=== PATIENT | male | born 1965 | race Caucasian/White ===

== ENCOUNTER 2016-12-21 11:11 | Inpatient (IN) | payer MEDICARE, MEDICAID ==
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
[2016-12-21 11:46] LABS: % BASOPHILS 1.4 % (0.0-2.0); % LYMPHOCYTES 25.3 % (20.0-50.0); % MONOCYTES 7.5 % (2.0-10.0); % NEUTROPHILS 56.8 % (40.0-80.0); HEMATOCRIT 34.8 % (41.0-60); HEMOGLOBIN 11.6 gm/dL (12-16); MEAN CELL VOLUME 83.9 fl (80-99); MEAN CORPUSCULAR HGB CONC 33.3 pg (28.0-36.0); NEUTROPHILE ABSOLUTE 3.3 Th/cmm (1.8-8.0); PLATELET COUNT 321 Th/cmm (150-400); RED BLOOD COUNT 4.14 Mil/cmm (4.30-5.70); RED CELL DISTRIBUTION WIDTH 13.6 % (11.5-20.0); WHITE BLOOD COUNT 5.8 Th/cmm (4.8-10.8)
[2016-12-21 11:58] LABS: ALKALINE PHOSPHATASE 85 U/L (34-104); ANION GAP 9.5 (7.0-16.0); BILIRUBIN,TOTAL 0.4 mg/dL (0.3-1.0); BUN - UREA NITROGEN 13 mg/dL (7-25); BUN/CREATININE RATIO 18.6; CALCIUM SERUM 9.3 mg/dL (8.6-10.3); CARBON DIOXIDE 24.4 mEq/L (21.0-31.0); CHLORIDE 103 mEq/L (98-107); CHOLESTEROL 153 mg/dL (<200); CREATININE - SERUM 0.7 mg/dL (0.7-1.3); GLUCOSE 240 mg/dL (70-105); POTASSIUM SERUM 3.9 mEq/L (3.5-5.1); SGOT 8 U/L (13-39); SGPT/ALT 5 U/L (7-52); SODIUM SERUM 133 mEq/L (136-145); TRIGLYCERIDES 146 mg/dL (<150)
[2016-12-21 13:16] LABS: URINE BILIRUBIN NEGATIVE (NEGATIVE); URINE BLOOD LARGE (NEGATIVE); URINE GLUCOSE (UA) NEGATIVE (NEGATIVE); URINE KETONE NEGATIVE (NEGATIVE); URINE PROTEIN NEGATIVE (NEGATIVE); URINE UROBILINOGEN 0.2 E.U./dL (0.2 - 1.0)
[2016-12-21 13:17] LABS: URINE COLOR YELLOW
[2016-12-21 13:21] LABS: URINE RBC 50-100 /hpf (0-5)
[2016-12-21 13:22] LABS: URINE BACTERIA MANY /hpf (NONE SEEN); URINE EPITHELIAL CELLS FEW /lpf (FEW); URINE WBC >100 /hpf (0-5)
[2016-12-21 15:16] VITALS: BP 110/65
[2016-12-21] MEDS ORDERED: Magnesium Hydroxide (MOM) 30 mL UDC PO PRN (16:18)
[2016-12-21] MEDS ORDERED: Fleet Enema 135 mL RC PRN (16:18)
[2016-12-21] MEDS ORDERED: Acetaminophen 500 MG TAB PO PRN (16:18)
[2016-12-21] MEDS: INSULIN ASPART SLIDING SCALE 100 UNITS/ML UNIT SUBQ SCH ×2 (18:28→20:43)
[2016-12-21] MEDS: Ferrous Sulfate 325 MG TAB PO SCH (18:30)
--- NOTE | 2016-12-21 20:11 | History & Physical ---
ADMIT DATE: 12/21/2016 CHIEF COMPLAINT: Severe depression. 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 Initial workup significant for urinary tract infection, major depression. The patient admitted to [facility] under Dr. Mar's service. The patient denies any chest pain, shortness of breath, nausea, vomiting, fever or chills. The patient just feels weak. PAST MEDICAL HISTORY: Significant for diabetes mellitus, spinal cord injury, functional quadriplegia, depression. PAST SURGICAL HISTORY: No recent surgery. ALLERGIES: None. MEDICATIONS: Follow admission reconciliation. SOCIAL HISTORY: No smoking, no alcohol, no drugs. FAMILY HISTORY: Noncontributory. REVIEW OF SYSTEMS: RENAL SYSTEM: No history of chronic renal disorder. CARDIOVASCULAR SYSTEM: No coronary artery disease. ENDOCRINE SYSTEM: Diabetes mellitus. GASTROINTESTINAL SYSTEM: No upper or lower gastrointestinal bleed. NEUROLOGICAL: He has history of functional quadriplegia, depression. MUSCULOSKELETAL SYSTEM: He has a contracture of the upper and lower extremities and muscular dystrophy. PHYSICAL EXAMINATION: GENERAL: He is awake, alert, oriented. VITAL SIGNS: Temperature is 98.6, heart rate 83, blood pressure is 126/72. HEENT: Normocephalic. Pupils reactive to light and accommodation. Sclerae clear. NECK: Supple. Negative for lymphadenopathy, JVD or bruit. CHEST: Bilateral normal. No rhonchi or wheezing. HEART: S1, S2 normal. No rhonchi. ABDOMEN: Soft, bowel sounds positive. EXTREMITIES: No edema on exam. SKIN: Intact. NEUROLOGIC: He is awake, alert, oriented. He has weakness of both lower extremities. LABORATORY DATA: White blood cell 5.8, hemoglobin 11.6, hematocrit 34.8, platelets 321. Sodium is 133, potassium 3.9, BUN is 13, creatinine 0.9. Urinalysis, specific gravity ____. ASSESSMENT: 1. Urinary tract infection. 2. Major depression. 3. Diabetes mellitus. 4. Functional quadriplegia. 5. Mild anemia. PLAN: The patient admitted to the hospital under Dr. Mar's service. Medical problems to be addressed during hospitalization UTI, major depression. Medical problems to be addressed after discharge is diabetes mellitus, ____, quadriplegia. The patient is medically stable for activity. Thank you Dr. Mar for asking me to see your patient. JOB# [id number]
[2016-12-22] MEDS: INSULIN ASPART SLIDING SCALE 100 UNITS/ML UNIT SUBQ SCH ×4 (06:44→21:13)
[2016-12-22] MEDS: Ferrous Sulfate 325 MG TAB PO SCH ×2 (08:32→17:07)
--- NOTE | 2016-12-22 14:09 | Internal Medicine Prog Note ---
Internal Medicine Subjective - Subjective Service Date: 12/22/16 Patient seen and examined:: without staff Patient is:: awake, interactive, in bed, talking Per staff patient has:: no adverse event (HE IS TAKING MEDICATION.) Internal Medicine Objective - Results Result Diagrams: 12/21/16 11:35 12/21/16 11:35 Recent Labs: Laboratory Last Values WBC 5.8 Th/cmm (4.8-10.8) 12/21/16 11:35 RBC 4.14 Mil/cmm (4.30-5.70) L 12/21/16 11:35 Hgb 11.6 gm/dL (12-16) L 12/21/16 11:35 Hct 34.8 % (41.0-60) L 12/21/16 11:35 MCV 83.9 fl (80-99) 12/21/16 11:35 MCH 28.0 pg (26.0-30.0) 12/21/16 11:35 MCHC Differential 33.3 pg (28.0-36.0) 12/21/16 11:35 RDW 13.6 % (11.5-20.0) 12/21/16 11:35 Plt Count 321 Th/cmm (150-400) 12/21/16 11:35 MPV 7.0 fl 12/21/16 11:35 Neutrophils % 56.8 % (40.0-80.0) 12/21/16 11:35 Lymphocytes % 25.3 % (20.0-50.0) 12/21/16 11:35 Monocytes % 7.5 % (2.0-10.0) 12/21/16 11:35 Eosinophils % 9.0 % (0.0-5.0) H 12/21/16 11:35 Basophils % 1.4 % (0.0-2.0) 12/21/16 11:35 Sodium 133 mEq/L (136-145) L 12/21/16 11:35 Potassium 3.9 mEq/L (3.5-5.1) 12/21/16 11:35 Chloride 103 mEq/L (98-107) 12/21/16 11:35 Carbon Dioxide 24.4 mEq/L (21.0-31.0) 12/21/16 11:35 Anion Gap 9.5 (7.0-16.0) 12/21/16 11:35 BUN 13 mg/dL (7-25) 12/21/16 11:35 Creatinine 0.7 mg/dL (0.7-1.3) 12/21/16 11:35 Est GFR ( Amer) > 60.0 ml/min (>90) 12/21/16 11:35 Est GFR (Non-Af Amer) > 60.0 ml/min 12/21/16 11:35 BUN/Creatinine Ratio 18.6 12/21/16 11:35 Glucose 240 mg/dL (70-105) H 12/21/16 11:35 POC Glucose 165 MG/DL (70 - 105) H 12/22/16 11:31 Hemoglobin A1c % 7.2 % (4.0-6.0) H 12/21/16 11:25 Calcium 9.3 mg/dL (8.6-10.3) 12/21/16 11:35 Total Bilirubin 0.4 mg/dL (0.3-1.0) 12/21/16 11:35 AST 8 U/L (13-39) L 12/21/16 11:35 ALT 5 U/L (7-52) L 12/21/16 11:35 Alkaline Phosphatase 85 U/L (34-104) 12/21/16 11:35 Total Protein 7.5 gm/dL (6.0-8.3) 12/21/16 11:35 Albumin 3.7 gm/dL (4.2-5.5) L 12/21/16 11:35 Globulin 3.8 gm/dL 12/21/16 11:35 Albumin/Globulin Ratio 1.0 (1.0-1.8) 12/21/16 11:35 Triglycerides 146 mg/dL (<150) 12/21/16 11:35 Cholesterol 153 mg/dL (<200) 12/21/16 11:35 LDL Cholesterol Direct 107 mg/dL (75-193) 12/21/16 11:35 HDL Cholesterol 34 mg/dL (23-92) 12/21/16 11:35 TSH 2.28 uIU/ml (0.34-5.60) 12/21/16 11:35 Urine Source CLEAN C 12/21/16 12:30 Urine Color YELLOW 12/21/16 12:30 Urine Clarity CLOUDY (CLEAR) 12/21/16 12:30 Urine pH 6.0 (4.6 - 8.0) 12/21/16 12:30 Ur Specific [place] <= 1.005 (1.005-1.030) 12/21/16 12:30 Urine Protein NEGATIVE mg/dL (NEGATIVE) 12/21/16 12:30 Urine Glucose (UA) NEGATIVE mg/dL (NEGATIVE) 12/21/16 12:30 Urine Ketones NEGATIVE mg/dL (NEGATIVE) 12/21/16 12:30 Urine Blood LARGE (NEGATIVE) H 12/21/16 12:30 Urine Nitrate POSITIVE (NEGATIVE) H 12/21/16 12:30 Urine Bilirubin NEGATIVE (NEGATIVE) 12/21/16 12:30 Urine Urobilinogen 0.2 E.U./dL (0.2 - 1.0) 12/21/16 12:30 Ur Leukocyte Esterase LARGE (NEGATIVE) H 12/21/16 12:30 Urine RBC 50-100 /hpf (0-5) H 12/21/16 12:30 Urine WBC >100 /hpf (0-5) H 12/21/16 12:30 Ur Epithelial Cells FEW /lpf (FEW) 12/21/16 12:30 Urine Bacteria MANY /hpf (NONE SEEN) 12/21/16 12:30 RPR NONREACTIVE (NONREACTIVE) 12/21/16 11:35 - Physical Exam Vitals and I&O: Vital Signs Temp 98.6 F 12/22/16 06:42 Pulse 81 12/22/16 06:42 Resp 19 12/22/16 06:42 BP 109/67 12/22/16 06:42 Pulse Ox 98 12/22/16 06:42 Intake & Output 12/21/16 12/22/16 12/22/16 18:59 06:59 18:59 Intake Total 120 Balance 120 Intake: Oral 120 Other: # Voids 3 # Bowel Movements 1 Active Medications: Current Medications Acetaminophen (Tylenol) 650 mg PO Q6HR PRN PRN Reason: Pain (Moderate) Stop: 02/19/17 16:17 Acetaminophen (Tylenol Extra Strength) 500 mg PO Q6HR PRN PRN Reason: Pain (Mild) Stop: 02/19/17 16:17 Bisacodyl (Dulcolax 10 Mg Supp) 10 mg RC DAILY PRN PRN Reason: Constipation Stop: 02/19/17 16:17 Bisacodyl (Dulcolax 10 Mg Supp) 10 mg RC HS [facility] Stop: 02/19/17 20:59 Last Admin: 12/21/16 20:43 Dose: 10 mg Ciprofloxacin (Cipro) 250 mg PO BID [facility] Stop: 02/20/17 20:59 Ferrous Sulfate (Iron) 325 mg PO BID [facility] Stop: 02/19/17 16:59 Last Admin: 12/22/16 08:32 Dose: 325 mg Insulin Aspart (Novolog Insulin Sliding Scale) 0 units SUBQ ACHS YIFAN PRN Reason: Protocol Stop: 02/19/17 17:04 Last Admin: 12/22/16 11:49 Dose: 2 units Lorazepam (Ativan) 0.5 mg PO Q6HR PRN; Protocol PRN Reason: Agitation Stop: 02/19/17 20:12 Magnesium Hydroxide (Milk Of Magnesia) 30 ml PO DAILY PRN PRN Reason: Constipation Stop: 02/19/17 16:17 Metformin HCl (Glucophage) 500 mg PO BID [facility] Stop: 02/19/17 16:59 Last Admin: 12/22/16 08:30 Dose: 500 mg Sodium Phosphate (Fleet Enema) 118 ml RC PRN PRN PRN Reason: Constipation Stop: 02/19/17 16:17 Tramadol HCl (Ultram) 50 mg PO Q6H PRN PRN Reason: Pain (Severe) Stop: 02/19/17 16:17 General: alert HEENT: NC/AT, PERRLA, EOMI, anicteric sclerae, throat clear Neck: Supple, No JVD, No thyromegaly, +2 carotid pulse wo bruit, No LAD, + JVD Lungs: CTAB Cardiovascular: RRR, Normal S1, Normal S2, without murmur Abdomen: soft, non-tender, non-distended Extremities: clear Neurological: no change Internal Medicine Assmt/Plan - Assessment Assessment: 1.UTI. 2.DM. 3.ANEMIA. 4.DEPRESSION - Plan Plan: CONTINUE ON CURRENT MEDICATION AND DIET.
[2016-12-22] MEDS ORDERED: Probiotic Screen MC PRN (14:30)
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
[2016-12-23] MEDS: INSULIN ASPART SLIDING SCALE 100 UNITS/ML UNIT SUBQ SCH ×4 (07:02→21:24)
[2016-12-23] MEDS: Lactobacillus Rhamnosus 10 Billion CFU Capsule PO SCH (08:41)
[2016-12-23] MEDS: Ferrous Sulfate 325 MG TAB PO SCH ×2 (08:41→16:16)
--- NOTE | 2016-12-23 11:29 | General Progress Note ---
Subjective - Review of Systems Service Date: 12/23/16 Subjective: resting comfortably in bed no distress Objective - Results Result Diagrams: 12/21/16 11:35 12/21/16 11:35 Recent Labs: Laboratory Last Values WBC 5.8 Th/cmm (4.8-10.8) 12/21/16 11:35 RBC 4.14 Mil/cmm (4.30-5.70) L 12/21/16 11:35 Hgb 11.6 gm/dL (12-16) L 12/21/16 11:35 Hct 34.8 % (41.0-60) L 12/21/16 11:35 MCV 83.9 fl (80-99) 12/21/16 11:35 MCH 28.0 pg (26.0-30.0) 12/21/16 11:35 MCHC Differential 33.3 pg (28.0-36.0) 12/21/16 11:35 RDW 13.6 % (11.5-20.0) 12/21/16 11:35 Plt Count 321 Th/cmm (150-400) 12/21/16 11:35 MPV 7.0 fl 12/21/16 11:35 Neutrophils % 56.8 % (40.0-80.0) 12/21/16 11:35 Lymphocytes % 25.3 % (20.0-50.0) 12/21/16 11:35 Monocytes % 7.5 % (2.0-10.0) 12/21/16 11:35 Eosinophils % 9.0 % (0.0-5.0) H 12/21/16 11:35 Basophils % 1.4 % (0.0-2.0) 12/21/16 11:35 Sodium 133 mEq/L (136-145) L 12/21/16 11:35 Potassium 3.9 mEq/L (3.5-5.1) 12/21/16 11:35 Chloride 103 mEq/L (98-107) 12/21/16 11:35 Carbon Dioxide 24.4 mEq/L (21.0-31.0) 12/21/16 11:35 Anion Gap 9.5 (7.0-16.0) 12/21/16 11:35 BUN 13 mg/dL (7-25) 12/21/16 11:35 Creatinine 0.7 mg/dL (0.7-1.3) 12/21/16 11:35 Est GFR ( Amer) > 60.0 ml/min (>90) 12/21/16 11:35 Est GFR (Non-Af Amer) > 60.0 ml/min 12/21/16 11:35 BUN/Creatinine Ratio 18.6 12/21/16 11:35 Glucose 240 mg/dL (70-105) H 12/21/16 11:35 POC Glucose 191 MG/DL (70 - 105) H 12/23/16 06:47 Hemoglobin A1c % 7.2 % (4.0-6.0) H 12/21/16 11:25 Calcium 9.3 mg/dL (8.6-10.3) 12/21/16 11:35 Total Bilirubin 0.4 mg/dL (0.3-1.0) 12/21/16 11:35 AST 8 U/L (13-39) L 12/21/16 11:35 ALT 5 U/L (7-52) L 12/21/16 11:35 Alkaline Phosphatase 85 U/L (34-104) 12/21/16 11:35 Total Protein 7.5 gm/dL (6.0-8.3) 12/21/16 11:35 Albumin 3.7 gm/dL (4.2-5.5) L 12/21/16 11:35 Globulin 3.8 gm/dL 12/21/16 11:35 Albumin/Globulin Ratio 1.0 (1.0-1.8) 12/21/16 11:35 Triglycerides 146 mg/dL (<150) 12/21/16 11:35 Cholesterol 153 mg/dL (<200) 12/21/16 11:35 LDL Cholesterol Direct 107 mg/dL (75-193) 12/21/16 11:35 HDL Cholesterol 34 mg/dL (23-92) 12/21/16 11:35 TSH 2.28 uIU/ml (0.34-5.60) 12/21/16 11:35 Urine Source CLEAN C 12/21/16 12:30 Urine Color YELLOW 12/21/16 12:30 Urine Clarity CLOUDY (CLEAR) 12/21/16 12:30 Urine pH 6.0 (4.6 - 8.0) 12/21/16 12:30 Ur Specific [place] <= 1.005 (1.005-1.030) 12/21/16 12:30 Urine Protein NEGATIVE mg/dL (NEGATIVE) 12/21/16 12:30 Urine Glucose (UA) NEGATIVE mg/dL (NEGATIVE) 12/21/16 12:30 Urine Ketones NEGATIVE mg/dL (NEGATIVE) 12/21/16 12:30 Urine Blood LARGE (NEGATIVE) H 12/21/16 12:30 Urine Nitrate POSITIVE (NEGATIVE) H 12/21/16 12:30 Urine Bilirubin NEGATIVE (NEGATIVE) 12/21/16 12:30 Urine Urobilinogen 0.2 E.U./dL (0.2 - 1.0) 12/21/16 12:30 Ur Leukocyte Esterase LARGE (NEGATIVE) H 12/21/16 12:30 Urine RBC 50-100 /hpf (0-5) H 12/21/16 12:30 Urine WBC >100 /hpf (0-5) H 12/21/16 12:30 Ur Epithelial Cells FEW /lpf (FEW) 12/21/16 12:30 Urine Bacteria MANY /hpf (NONE SEEN) 12/21/16 12:30 RPR NONREACTIVE (NONREACTIVE) 12/21/16 11:35 - Physical Exam Vitals and I&O: Vital Signs Temp 97.6 F 12/23/16 06:47 Pulse 63 12/23/16 10:32 Resp 19 12/23/16 10:32 BP 108/72 12/23/16 06:47 Pulse Ox 95 12/23/16 06:47 Intake & Output 12/22/16 12/23/16 12/23/16 18:59 06:59 18:59 Intake Total 1000 120 Balance 1000 120 Intake: Oral 1000 120 Other: # Voids 3 3 # Bowel Movements 0 Active Medications: Current Medications Acetaminophen (Tylenol) 650 mg PO Q6HR PRN PRN Reason: Pain (Moderate) Stop: 02/19/17 16:17 Acetaminophen (Tylenol Extra Strength) 500 mg PO Q6HR PRN PRN Reason: Pain (Mild) Stop: 02/19/17 16:17 Bisacodyl (Dulcolax 10 Mg Supp) 10 mg RC HS YIFAN Stop: 02/19/17 20:59 Last Admin: 12/22/16 21:12 Dose: 10 mg Ciprofloxacin (Cipro) 250 mg PO BID [facility] Stop: 02/20/17 20:59 Last Admin: 12/23/16 08:42 Dose: 250 mg Ferrous Sulfate (Iron) 325 mg PO BID [facility] Stop: 02/19/17 16:59 Last Admin: 12/23/16 08:41 Dose: 325 mg Insulin Aspart (Novolog Insulin Sliding Scale) 0 units SUBQ ACHS YIFAN PRN Reason: Protocol Stop: 02/19/17 17:04 Last Admin: 12/23/16 07:02 Dose: 2 units Lactobacillus Rhamnosus (Culturelle) 1 each PO DAILY [facility] Stop: 02/21/17 08:59 Last Admin: 12/23/16 08:41 Dose: 1 each Lorazepam (Ativan) 0.5 mg PO Q6HR PRN; Protocol PRN Reason: Agitation Stop: 02/19/17 20:12 Magnesium Hydroxide (Milk Of Magnesia) 30 ml PO DAILY PRN PRN Reason: Constipation Stop: 02/19/17 16:17 Metformin HCl (Glucophage) 500 mg PO BID [facility] Stop: 02/19/17 16:59 Last Admin: 12/23/16 08:42 Dose: 500 mg Miscellaneous (Probiotic Screen) 1 ea MC PRN PRN PRN Reason: PROTOCOL Stop: 02/20/17 14:29 Quetiapine Fumarate (Seroquel) 25 mg PO HS YIFAN PRN Reason: Protocol Stop: 02/21/17 20:59 Sodium Phosphate (Fleet Enema) 118 ml RC PRN PRN PRN Reason: Constipation Stop: 02/19/17 16:17 Tramadol HCl (Ultram) 50 mg PO Q6H PRN PRN Reason: Pain (Severe) Stop: 02/19/17 16:17 General: Alert, No acute distress HEENT: Atraumatic, PERRLA, EOMI Neck: Supple, JVD Cardiovascular: Regular rate, Normal S1, Normal S2 Lungs: Clear to auscultation Abdomen: Bowel sounds, Soft Psych/Mental Status: Mood NL Assessment/Plan - Assessment Assessment: 1.UTI. 2.DM. 3.ANEMIA. 4.DEPRESSION - Plan Plan: cont current treatment Nutritional Asmnt/Malnutr-PDOC - Dietary Evaluation Malnutrition Findings (Please click <Entered> for more info): Nutritional Asmnt/Malnutrition Start: 12/22/16 16: 48 Text: Status: Complete Freq: Document 12/22/16 16:48 YVONNE (Rec: 12/22/16 17:00 [email or web address] [email or web address]) Nutritional Asmnt/Malnutrition Patient General Information Nutritional Screening Consult Diagnosis Reason for visit: refusal of care, UTI, 5150 Pertinent Medical Hx/Surgical Hx Quadriplegia secondary to spinal cord injury, DM Subjective Information 51 year old male from SNF. RD consult for blood glucose. Trinidadian speaking, little Romanian. Pt was very pelasant. Visited pt during meal time, observed pt sitting upright in bed able to self feed. Teeth/ dentures intact. Limited physical assessment due to meal time, appeared thin, mild wasting only. Pt stated the food is good, no questions/ concerns at this time. Current Diet Order/ Nutrition Support Regular Pertinent Medications Dulcolax, Iron, Novolog, Culturelle, MOM, Glucophage, Fleet Enema Pertinent Labs A1c 7.2, POc glucose 165-290 since adm Nutritional Hx/Data Height 1.63 m Height (Calculated Centimeters) 162.6 Current Weight (lbs) 55.338 kg Weight (Calculated Kilograms) 55.3 Weight (Calculated Grams) 29784.3 [place] Body Weight 130 Weight Status Approriate GI Symptoms [facility] at [facility] [place] [facility], thin liquids Skin Integrity/Comment: Ankur 15. Skin intact. Estimated Nutritional Goals Calories/Kcals/Kg IBW 130lb/59.1kg Kcals Calculated 1478-1773kcal (25-30kcal/kg) Protein Calculated 59g (1g/kg) Fluid: ml 1478-1773ml (1ml/kcal) Nutritional Problem 1. Problem Problem Altered nutrition related laboratory values related to Etiology DM aeb Signs/Symptoms: A1c 7.2, glucose 240 on adm Intervention/Recommendation Comments 1. Recommend [id number] with Boost glucose control QD. 2. Monitor weight. BMI 20.9 with mild wasting noted. Expected Outcomes/Goals Expected Outcomes/Goals 1. PO intake to meet at least 75% of estimated nutritinoal needs.
--- NOTE | 2016-12-23 22:00 | Progress Notes ---
DATE: 12/23/2016 SUBJECTIVE: The patient is seen, chart reviewed, discussed with staff. The patient is currently in the hospital, apparently paranoid, believing that the medicine was being poisoned. He is denying this at this time. He is in fairly good spirits, remains impulsive; however, highly unpredictable. He is amenable to care at this time. He remains pretty isolative, sleeping well. He states he is eating fairly well. He has been fairly compliant. ASSESSMENT: The patient remains symptomatic, impulsive, unpredictable, concerns for paranoia and psychosis. PLAN: Continue to monitor, coordinate care with social work, continue to make appropriate medication adjustments. JOB# [id number]
[2016-12-24] MEDS: INSULIN ASPART SLIDING SCALE 100 UNITS/ML UNIT SUBQ SCH ×4 (07:06→21:40)
[2016-12-24] MEDS: Lactobacillus Rhamnosus 10 Billion CFU Capsule PO SCH (08:33)
[2016-12-24] MEDS: Ferrous Sulfate 325 MG TAB PO SCH ×2 (08:34→16:31)
--- NOTE | 2016-12-24 19:01 | Progress Notes ---
DATE: 12/24/2016 SUBJECTIVE: The patient is seen, chart reviewed, discussed with staff. The patient is currently in the hospital, apparently he was refusing to take his medications and also refusing food at times, making statements that he thought that the staff was poisoning his medicine. The patient was denying this upon admission. He is having some periods of irritability, but in general has been calm, and cooperative. He has been treatment compliant, sleeping fairly well, linear, and engaged, No SI, no HI. I did initiate Seroquel at a low dose to tamper down any paranoia. ASSESSMENT: The patient remains highly impulsive, unpredictable. He has been friendlier and calmer while in the hospital relative to when I have seen him before. PLAN: We will continue to monitor. Given his ongoing symptoms, he is not safe for discharge. We are also trying to work on placement. He cannot take care of himself. JOB# [id number]
--- NOTE | 2016-12-24 19:49 | General Progress Note ---
Subjective - Review of Systems Service Date: 12/24/16 Subjective: resting comfortably in bed no distress Objective - Results Result Diagrams: 12/21/16 11:35 12/21/16 11:35 Recent Labs: Laboratory Last Values WBC 5.8 Th/cmm (4.8-10.8) 12/21/16 11:35 RBC 4.14 Mil/cmm (4.30-5.70) L 12/21/16 11:35 Hgb 11.6 gm/dL (12-16) L 12/21/16 11:35 Hct 34.8 % (41.0-60) L 12/21/16 11:35 MCV 83.9 fl (80-99) 12/21/16 11:35 MCH 28.0 pg (26.0-30.0) 12/21/16 11:35 MCHC Differential 33.3 pg (28.0-36.0) 12/21/16 11:35 RDW 13.6 % (11.5-20.0) 12/21/16 11:35 Plt Count 321 Th/cmm (150-400) 12/21/16 11:35 MPV 7.0 fl 12/21/16 11:35 Neutrophils % 56.8 % (40.0-80.0) 12/21/16 11:35 Lymphocytes % 25.3 % (20.0-50.0) 12/21/16 11:35 Monocytes % 7.5 % (2.0-10.0) 12/21/16 11:35 Eosinophils % 9.0 % (0.0-5.0) H 12/21/16 11:35 Basophils % 1.4 % (0.0-2.0) 12/21/16 11:35 Sodium 133 mEq/L (136-145) L 12/21/16 11:35 Potassium 3.9 mEq/L (3.5-5.1) 12/21/16 11:35 Chloride 103 mEq/L (98-107) 12/21/16 11:35 Carbon Dioxide 24.4 mEq/L (21.0-31.0) 12/21/16 11:35 Anion Gap 9.5 (7.0-16.0) 12/21/16 11:35 BUN 13 mg/dL (7-25) 12/21/16 11:35 Creatinine 0.7 mg/dL (0.7-1.3) 12/21/16 11:35 Est GFR ( Amer) > 60.0 ml/min (>90) 12/21/16 11:35 Est GFR (Non-Af Amer) > 60.0 ml/min 12/21/16 11:35 BUN/Creatinine Ratio 18.6 12/21/16 11:35 Glucose 240 mg/dL (70-105) H 12/21/16 11:35 POC Glucose 212 MG/DL (70 - 105) H 12/24/16 17:02 Hemoglobin A1c % 7.2 % (4.0-6.0) H 12/21/16 11:25 Calcium 9.3 mg/dL (8.6-10.3) 12/21/16 11:35 Total Bilirubin 0.4 mg/dL (0.3-1.0) 12/21/16 11:35 AST 8 U/L (13-39) L 12/21/16 11:35 ALT 5 U/L (7-52) L 12/21/16 11:35 Alkaline Phosphatase 85 U/L (34-104) 12/21/16 11:35 Total Protein 7.5 gm/dL (6.0-8.3) 12/21/16 11:35 Albumin 3.7 gm/dL (4.2-5.5) L 12/21/16 11:35 Globulin 3.8 gm/dL 12/21/16 11:35 Albumin/Globulin Ratio 1.0 (1.0-1.8) 12/21/16 11:35 Triglycerides 146 mg/dL (<150) 12/21/16 11:35 Cholesterol 153 mg/dL (<200) 12/21/16 11:35 LDL Cholesterol Direct 107 mg/dL (75-193) 12/21/16 11:35 HDL Cholesterol 34 mg/dL (23-92) 12/21/16 11:35 TSH 2.28 uIU/ml (0.34-5.60) 12/21/16 11:35 Urine Source CLEAN C 12/21/16 12:30 Urine Color YELLOW 12/21/16 12:30 Urine Clarity CLOUDY (CLEAR) 12/21/16 12:30 Urine pH 6.0 (4.6 - 8.0) 12/21/16 12:30 Ur Specific [place] <= 1.005 (1.005-1.030) 12/21/16 12:30 Urine Protein NEGATIVE mg/dL (NEGATIVE) 12/21/16 12:30 Urine Glucose (UA) NEGATIVE mg/dL (NEGATIVE) 12/21/16 12:30 Urine Ketones NEGATIVE mg/dL (NEGATIVE) 12/21/16 12:30 Urine Blood LARGE (NEGATIVE) H 12/21/16 12:30 Urine Nitrate POSITIVE (NEGATIVE) H 12/21/16 12:30 Urine Bilirubin NEGATIVE (NEGATIVE) 12/21/16 12:30 Urine Urobilinogen 0.2 E.U./dL (0.2 - 1.0) 12/21/16 12:30 Ur Leukocyte Esterase LARGE (NEGATIVE) H 12/21/16 12:30 Urine RBC 50-100 /hpf (0-5) H 12/21/16 12:30 Urine WBC >100 /hpf (0-5) H 12/21/16 12:30 Ur Epithelial Cells FEW /lpf (FEW) 12/21/16 12:30 Urine Bacteria MANY /hpf (NONE SEEN) 12/21/16 12:30 RPR NONREACTIVE (NONREACTIVE) 12/21/16 11:35 - Physical Exam Vitals and I&O: Vital Signs Temp 98 F 12/24/16 15:52 Pulse 97 12/24/16 15:52 Resp 20 12/24/16 15:52 BP 104/53 12/24/16 15:52 Pulse Ox 95 12/24/16 15:52 Intake & Output 12/24/16 12/24/16 12/25/16 06:59 18:59 06:59 Intake Total 680 Balance 680 Intake: Oral 680 Other: # Voids 2 # Bowel Movements 1 Stool Characteristics Formed Active Medications: Current Medications Acetaminophen (Tylenol) 650 mg PO Q6HR PRN PRN Reason: Pain (Moderate) Stop: 02/19/17 16:17 Acetaminophen (Tylenol Extra Strength) 500 mg PO Q6HR PRN PRN Reason: Pain (Mild) Stop: 02/19/17 16:17 Bisacodyl (Dulcolax 10 Mg Supp) 10 mg RC HS YIFAN Stop: 02/19/17 20:59 Last Admin: 12/23/16 21:23 Dose: 10 mg Ciprofloxacin (Cipro) 250 mg PO BID [facility] Stop: 02/20/17 20:59 Last Admin: 12/24/16 16:31 Dose: 250 mg Ferrous Sulfate (Iron) 325 mg PO BID [facility] Stop: 02/19/17 16:59 Last Admin: 12/24/16 16:31 Dose: 325 mg Insulin Aspart (Novolog Insulin Sliding Scale) 0 units SUBQ ACHS YIFAN PRN Reason: Protocol Stop: 02/19/17 17:04 Last Admin: 12/24/16 17:16 Dose: 4 units Lactobacillus Rhamnosus (Culturelle) 1 each PO DAILY YIFAN Stop: 02/21/17 08:59 Last Admin: 12/24/16 08:33 Dose: 1 each Lorazepam (Ativan) 0.5 mg PO Q6HR PRN; Protocol PRN Reason: Agitation Stop: 02/19/17 20:12 Magnesium Hydroxide (Milk Of Magnesia) 30 ml PO DAILY PRN PRN Reason: Constipation Stop: 02/19/17 16:17 Metformin HCl (Glucophage) 500 mg PO BID [facility] Stop: 02/19/17 16:59 Last Admin: 12/24/16 16:32 Dose: 500 mg Miscellaneous (Probiotic Screen) 1 ea MC PRN PRN PRN Reason: PROTOCOL Stop: 02/20/17 14:29 Quetiapine Fumarate (Seroquel) 25 mg PO HS YIFAN PRN Reason: Protocol Stop: 02/21/17 20:59 Last Admin: 12/23/16 21:22 Dose: 25 mg Sodium Phosphate (Fleet Enema) 118 ml RC PRN PRN PRN Reason: Constipation Stop: 02/19/17 16:17 Tramadol HCl (Ultram) 50 mg PO Q6H PRN PRN Reason: Pain (Severe) Stop: 02/19/17 16:17 General: Alert, No acute distress HEENT: Atraumatic, PERRLA, EOMI Neck: Supple, JVD Cardiovascular: Regular rate, Normal S1, Normal S2 Lungs: Clear to auscultation Abdomen: Bowel sounds, Soft Psych/Mental Status: Mood NL Assessment/Plan - Assessment Assessment: 1.UTI. 2.DM. 3.ANEMIA. 4.DEPRESSION - Plan Plan: cont current treatment Nutritional Asmnt/Malnutr-PDOC - Dietary Evaluation Malnutrition Findings (Please click <Entered> for more info): Nutritional Asmnt/Malnutrition Start: 12/22/16 16: 48 Text: Status: Complete Freq: Document 12/22/16 16:48 YVONNE (Rec: 12/22/16 17:00 GSEMMY [email or web address]) Nutritional Asmnt/Malnutrition Patient General Information Nutritional Screening Consult Diagnosis Reason for visit: refusal of care, UTI, 5150 Pertinent Medical Hx/Surgical Hx Quadriplegia secondary to spinal cord injury, DM Subjective Information 51 year old male from SNF. RD consult for blood glucose. [place] speaking, little Latvian. Pt was very pelasant. Visited pt during meal time, observed pt sitting upright in bed able to self feed. Teeth/ dentures intact. Limited physical assessment due to meal time, appeared thin, mild wasting only. Pt stated the food is good, no questions/ concerns at this time. Current Diet Order/ Nutrition Support Regular Pertinent Medications Dulcolax, Iron, Novolog, Culturelle, MOM, Glucophage, Fleet Enema Pertinent Labs A1c 7.2, POc glucose 165-290 since adm Nutritional Hx/Data Height 1.63 m Height (Calculated Centimeters) 162.6 Current Weight (lbs) 55.338 kg Weight (Calculated Kilograms) 55.3 Weight (Calculated Grams) 69164.3 [place] Body Weight 130 Weight Status Approriate GI Symptoms Usual diet at home [place] [facility], thin liquids Skin Integrity/Comment: Ankur 15. Skin intact. Estimated Nutritional Goals Calories/Kcals/Kg IBW 130lb/59.1kg Kcals Calculated 1478-1773kcal (25-30kcal/kg) Protein Calculated 59g (1g/kg) Fluid: ml 1478-1773ml (1ml/kcal) Nutritional Problem 1. Problem Problem Altered nutrition related laboratory values related to Etiology DM aeb Signs/Symptoms: A1c 7.2, glucose 240 on adm Intervention/Recommendation Comments 1. Recommend [id number] with Boost glucose control QD. 2. Monitor weight. BMI 20.9 with mild wasting noted. Expected Outcomes/Goals Expected Outcomes/Goals 1. PO intake to meet at least 75% of estimated nutritinoal needs.
[2016-12-25] MEDS: INSULIN ASPART SLIDING SCALE 100 UNITS/ML UNIT SUBQ SCH ×4 (06:56→21:20)
[2016-12-25] MEDS: Ferrous Sulfate 325 MG TAB PO SCH ×2 (09:39→16:49)
[2016-12-25] MEDS: Lactobacillus Rhamnosus 10 Billion CFU Capsule PO SCH (09:39)
--- NOTE | 2016-12-25 19:37 | Internal Medicine Prog Note ---
Internal Medicine Subjective - Subjective Service Date: 12/25/16 Patient seen and examined:: with staff, without staff Patient is:: awake, interactive, in bed, talking Per staff patient has:: no adverse event (HE IS TAKING MEDICATION.) Internal Medicine Objective - Results Result Diagrams: 12/21/16 11:35 12/21/16 11:35 Recent Labs: Laboratory Last Values WBC 5.8 Th/cmm (4.8-10.8) 12/21/16 11:35 RBC 4.14 Mil/cmm (4.30-5.70) L 12/21/16 11:35 Hgb 11.6 gm/dL (12-16) L 12/21/16 11:35 Hct 34.8 % (41.0-60) L 12/21/16 11:35 MCV 83.9 fl (80-99) 12/21/16 11:35 MCH 28.0 pg (26.0-30.0) 12/21/16 11:35 MCHC Differential 33.3 pg (28.0-36.0) 12/21/16 11:35 RDW 13.6 % (11.5-20.0) 12/21/16 11:35 Plt Count 321 Th/cmm (150-400) 12/21/16 11:35 MPV 7.0 fl 12/21/16 11:35 Neutrophils % 56.8 % (40.0-80.0) 12/21/16 11:35 Lymphocytes % 25.3 % (20.0-50.0) 12/21/16 11:35 Monocytes % 7.5 % (2.0-10.0) 12/21/16 11:35 Eosinophils % 9.0 % (0.0-5.0) H 12/21/16 11:35 Basophils % 1.4 % (0.0-2.0) 12/21/16 11:35 Sodium 133 mEq/L (136-145) L 12/21/16 11:35 Potassium 3.9 mEq/L (3.5-5.1) 12/21/16 11:35 Chloride 103 mEq/L (98-107) 12/21/16 11:35 Carbon Dioxide 24.4 mEq/L (21.0-31.0) 12/21/16 11:35 Anion Gap 9.5 (7.0-16.0) 12/21/16 11:35 BUN 13 mg/dL (7-25) 12/21/16 11:35 Creatinine 0.7 mg/dL (0.7-1.3) 12/21/16 11:35 Est GFR ( Amer) > 60.0 ml/min (>90) 12/21/16 11:35 Est GFR (Non-Af Amer) > 60.0 ml/min 12/21/16 11:35 BUN/Creatinine Ratio 18.6 12/21/16 11:35 Glucose 240 mg/dL (70-105) H 12/21/16 11:35 POC Glucose 185 MG/DL (70 - 105) H 12/25/16 16:41 Hemoglobin A1c % 7.2 % (4.0-6.0) H 12/21/16 11:25 Calcium 9.3 mg/dL (8.6-10.3) 12/21/16 11:35 Total Bilirubin 0.4 mg/dL (0.3-1.0) 12/21/16 11:35 AST 8 U/L (13-39) L 12/21/16 11:35 ALT 5 U/L (7-52) L 12/21/16 11:35 Alkaline Phosphatase 85 U/L (34-104) 12/21/16 11:35 Total Protein 7.5 gm/dL (6.0-8.3) 12/21/16 11:35 Albumin 3.7 gm/dL (4.2-5.5) L 12/21/16 11:35 Globulin 3.8 gm/dL 12/21/16 11:35 Albumin/Globulin Ratio 1.0 (1.0-1.8) 12/21/16 11:35 Triglycerides 146 mg/dL (<150) 12/21/16 11:35 Cholesterol 153 mg/dL (<200) 12/21/16 11:35 LDL Cholesterol Direct 107 mg/dL (75-193) 12/21/16 11:35 HDL Cholesterol 34 mg/dL (23-92) 12/21/16 11:35 TSH 2.28 uIU/ml (0.34-5.60) 12/21/16 11:35 Urine Source CLEAN C 12/21/16 12:30 Urine Color YELLOW 12/21/16 12:30 Urine Clarity CLOUDY (CLEAR) 12/21/16 12:30 Urine pH 6.0 (4.6 - 8.0) 12/21/16 12:30 Ur Specific [place] <= 1.005 (1.005-1.030) 12/21/16 12:30 Urine Protein NEGATIVE mg/dL (NEGATIVE) 12/21/16 12:30 Urine Glucose (UA) NEGATIVE mg/dL (NEGATIVE) 12/21/16 12:30 Urine Ketones NEGATIVE mg/dL (NEGATIVE) 12/21/16 12:30 Urine Blood LARGE (NEGATIVE) H 12/21/16 12:30 Urine Nitrate POSITIVE (NEGATIVE) H 12/21/16 12:30 Urine Bilirubin NEGATIVE (NEGATIVE) 12/21/16 12:30 Urine Urobilinogen 0.2 E.U./dL (0.2 - 1.0) 12/21/16 12:30 Ur Leukocyte Esterase LARGE (NEGATIVE) H 12/21/16 12:30 Urine RBC 50-100 /hpf (0-5) H 12/21/16 12:30 Urine WBC >100 /hpf (0-5) H 12/21/16 12:30 Ur Epithelial Cells FEW /lpf (FEW) 12/21/16 12:30 Urine Bacteria MANY /hpf (NONE SEEN) 12/21/16 12:30 RPR NONREACTIVE (NONREACTIVE) 12/21/16 11:35 - Physical Exam Vitals and I&O: Vital Signs Temp 98.3 F 12/25/16 15:57 Pulse 85 12/25/16 15:57 Resp 20 12/25/16 15:57 BP 101/59 12/25/16 15:57 Pulse Ox 95 12/25/16 15:57 Intake & Output 12/25/16 12/25/16 12/26/16 06:59 18:59 06:59 Intake Total 240 780 Balance 240 780 Intake: Oral 240 780 Other: # Voids 2 3 # Bowel Movements 1 1 Active Medications: Current Medications Acetaminophen (Tylenol) 650 mg PO Q6HR PRN PRN Reason: Pain (Moderate) Stop: 02/19/17 16:17 Acetaminophen (Tylenol Extra Strength) 500 mg PO Q6HR PRN PRN Reason: Pain (Mild) Stop: 02/19/17 16:17 Bisacodyl (Dulcolax 10 Mg Supp) 10 mg RC HS [facility] Stop: 02/19/17 20:59 Last Admin: 12/24/16 21:40 Dose: Not Given Ciprofloxacin (Cipro) 250 mg PO BID [facility] Stop: 02/20/17 20:59 Last Admin: 12/25/16 16:49 Dose: 250 mg Ferrous Sulfate (Iron) 325 mg PO BID YIFAN Stop: 02/19/17 16:59 Last Admin: 12/25/16 16:49 Dose: 325 mg Insulin Aspart (Novolog Insulin Sliding Scale) 0 units SUBQ ACHS YIFAN PRN Reason: Protocol Stop: 02/19/17 17:04 Last Admin: 12/25/16 16:53 Dose: 2 units Lactobacillus Rhamnosus (Culturelle) 1 each PO DAILY [facility] Stop: 02/21/17 08:59 Last Admin: 12/25/16 09:39 Dose: 1 each Lorazepam (Ativan) 0.5 mg PO Q6HR PRN; Protocol PRN Reason: Agitation Stop: 02/19/17 20:12 Magnesium Hydroxide (Milk Of Magnesia) 30 ml PO DAILY PRN PRN Reason: Constipation Stop: 02/19/17 16:17 Metformin HCl (Glucophage) 500 mg PO BID [facility] Stop: 02/19/17 16:59 Last Admin: 12/25/16 16:48 Dose: 500 mg Miscellaneous (Probiotic Screen) 1 ea MC PRN PRN PRN Reason: PROTOCOL Stop: 02/20/17 14:29 Quetiapine Fumarate (Seroquel) 25 mg PO HS [facility] PRN Reason: Protocol Stop: 02/21/17 20:59 Last Admin: 12/24/16 21:36 Dose: 25 mg Sodium Phosphate (Fleet Enema) 118 ml RC PRN PRN PRN Reason: Constipation Stop: 02/19/17 16:17 Tramadol HCl (Ultram) 50 mg PO Q6H PRN PRN Reason: Pain (Severe) Stop: 02/19/17 16:17 General: alert HEENT: NC/AT, PERRLA, EOMI, anicteric sclerae, throat clear Neck: Supple, No JVD, No thyromegaly, +2 carotid pulse wo bruit, No LAD, + JVD Lungs: CTAB Cardiovascular: RRR, Normal S1, Normal S2, without murmur Abdomen: soft, non-tender, non-distended Extremities: clear Neurological: no change Internal Medicine Assmt/Plan - Assessment Assessment: 1.UTI. 2.DM. 3.ANEMIA. 4.DEPRESSION - Plan Plan: CONTINUE ON CURRENT MEDICATION AND DIET. Nutritional Asmnt/Malnutr-PDOC - Dietary Evaluation Malnutrition Findings (Please click <Entered> for more info): Nutritional Asmnt/Malnutrition Start: 12/22/16 16: 48 Text: Status: Complete Freq: Document 12/22/16 16:48 GSUN (Rec: 12/22/16 17:00 GSUN [email or web address]) Nutritional Asmnt/Malnutrition Patient General Information Nutritional Screening Consult Diagnosis Reason for visit: refusal of care, UTI, 5150 Pertinent Medical Hx/Surgical Hx Quadriplegia secondary to spinal cord injury, DM Subjective Information 51 year old male from SNF. RD consult for blood glucose. Citizen Of [place] speaking, little Lebanese. Pt was very pelasant. Visited pt during meal time, observed pt sitting upright in bed able to self feed. Teeth/ dentures intact. Limited physical assessment due to meal time, appeared thin, mild wasting only. Pt stated the food is good, no questions/ concerns at this time. Current Diet Order/ Nutrition Support Regular Pertinent Medications Dulcolax, Iron, Novolog, Culturelle, MOM, Glucophage, Fleet Enema Pertinent Labs A1c 7.2, POc glucose 165-290 since adm Nutritional Hx/Data Height 1.63 m Height (Calculated Centimeters) 162.6 Current Weight (lbs) 55.338 kg Weight (Calculated Kilograms) 55.3 Weight (Calculated Grams) 45674.3 [place] Body Weight 130 Weight Status Approriate GI Symptoms Usual diet at home [place] [facility], thin liquids Skin Integrity/Comment: Ankur 15. Skin intact. Estimated Nutritional Goals Calories/Kcals/Kg IBW 130lb/59.1kg Kcals Calculated 1478-1773kcal (25-30kcal/kg) Protein Calculated 59g (1g/kg) Fluid: ml 1478-1773ml (1ml/kcal) Nutritional Problem 1. Problem Problem Altered nutrition related laboratory values related to Etiology DM aeb Signs/Symptoms: A1c 7.2, glucose 240 on adm Intervention/Recommendation Comments 1. Recommend [id number] with Boost glucose control QD. 2. Monitor weight. BMI 20.9 with mild wasting noted. Expected Outcomes/Goals Expected Outcomes/Goals 1. PO intake to meet at least 75% of estimated nutritinoal needs.
--- NOTE | 2016-12-25 19:47 | Progress Notes ---
DATE: 12/25/2016 SUBJECTIVE: The patient seen, chart reviewed, and discussed with the staff. The patient is calm, cooperative. He continues denying any paranoia. He is taking his medications, eating well, sleeping well. He remains isolative, some irritability noted. Otherwise, he is gravely disabled, unable to care for his basic needs. We are trying to help him with the placement. He is refusing to go back to [facility]. ASSESSMENT AND PLAN: The patient remains symptomatic, gravely disabled, concerns for safety, still irritable, still with some mood lability, concerns for paranoia, but improvement noted. Continue Seroquel. JOB# [id number]
[2016-12-26] MEDS: INSULIN ASPART SLIDING SCALE 100 UNITS/ML UNIT SUBQ SCH ×5 (06:43→20:30)
[2016-12-26] MEDS: Lactobacillus Rhamnosus 10 Billion CFU Capsule PO SCH (10:02)
[2016-12-26] MEDS: Ferrous Sulfate 325 MG TAB PO SCH ×2 (10:02→16:24)
--- NOTE | 2016-12-26 19:29 | Internal Medicine Prog Note ---
Internal Medicine Subjective - Subjective Service Date: 12/26/16 Patient seen and examined:: without staff Patient is:: awake, interactive, in bed, talking Per staff patient has:: no adverse event (HE IS TAKING MEDICATION.) Internal Medicine Objective - Results Result Diagrams: 12/21/16 11:35 12/21/16 11:35 Recent Labs: Laboratory Last Values WBC 5.8 Th/cmm (4.8-10.8) 12/21/16 11:35 RBC 4.14 Mil/cmm (4.30-5.70) L 12/21/16 11:35 Hgb 11.6 gm/dL (12-16) L 12/21/16 11:35 Hct 34.8 % (41.0-60) L 12/21/16 11:35 MCV 83.9 fl (80-99) 12/21/16 11:35 MCH 28.0 pg (26.0-30.0) 12/21/16 11:35 MCHC Differential 33.3 pg (28.0-36.0) 12/21/16 11:35 RDW 13.6 % (11.5-20.0) 12/21/16 11:35 Plt Count 321 Th/cmm (150-400) 12/21/16 11:35 MPV 7.0 fl 12/21/16 11:35 Neutrophils % 56.8 % (40.0-80.0) 12/21/16 11:35 Lymphocytes % 25.3 % (20.0-50.0) 12/21/16 11:35 Monocytes % 7.5 % (2.0-10.0) 12/21/16 11:35 Eosinophils % 9.0 % (0.0-5.0) H 12/21/16 11:35 Basophils % 1.4 % (0.0-2.0) 12/21/16 11:35 Sodium 133 mEq/L (136-145) L 12/21/16 11:35 Potassium 3.9 mEq/L (3.5-5.1) 12/21/16 11:35 Chloride 103 mEq/L (98-107) 12/21/16 11:35 Carbon Dioxide 24.4 mEq/L (21.0-31.0) 12/21/16 11:35 Anion Gap 9.5 (7.0-16.0) 12/21/16 11:35 BUN 13 mg/dL (7-25) 12/21/16 11:35 Creatinine 0.7 mg/dL (0.7-1.3) 12/21/16 11:35 Est GFR ( Amer) > 60.0 ml/min (>90) 12/21/16 11:35 Est GFR (Non-Af Amer) > 60.0 ml/min 12/21/16 11:35 BUN/Creatinine Ratio 18.6 12/21/16 11:35 Glucose 240 mg/dL (70-105) H 12/21/16 11:35 POC Glucose 140 MG/DL (70 - 105) H 12/26/16 16:12 Hemoglobin A1c % 7.2 % (4.0-6.0) H 12/21/16 11:25 Calcium 9.3 mg/dL (8.6-10.3) 12/21/16 11:35 Total Bilirubin 0.4 mg/dL (0.3-1.0) 12/21/16 11:35 AST 8 U/L (13-39) L 12/21/16 11:35 ALT 5 U/L (7-52) L 12/21/16 11:35 Alkaline Phosphatase 85 U/L (34-104) 12/21/16 11:35 Total Protein 7.5 gm/dL (6.0-8.3) 12/21/16 11:35 Albumin 3.7 gm/dL (4.2-5.5) L 12/21/16 11:35 Globulin 3.8 gm/dL 12/21/16 11:35 Albumin/Globulin Ratio 1.0 (1.0-1.8) 12/21/16 11:35 Triglycerides 146 mg/dL (<150) 12/21/16 11:35 Cholesterol 153 mg/dL (<200) 12/21/16 11:35 LDL Cholesterol Direct 107 mg/dL (75-193) 12/21/16 11:35 HDL Cholesterol 34 mg/dL (23-92) 12/21/16 11:35 TSH 2.28 uIU/ml (0.34-5.60) 12/21/16 11:35 Urine Source CLEAN C 12/21/16 12:30 Urine Color YELLOW 12/21/16 12:30 Urine Clarity CLOUDY (CLEAR) 12/21/16 12:30 Urine pH 6.0 (4.6 - 8.0) 12/21/16 12:30 Ur Specific [place] <= 1.005 (1.005-1.030) 12/21/16 12:30 Urine Protein NEGATIVE mg/dL (NEGATIVE) 12/21/16 12:30 Urine Glucose (UA) NEGATIVE mg/dL (NEGATIVE) 12/21/16 12:30 Urine Ketones NEGATIVE mg/dL (NEGATIVE) 12/21/16 12:30 Urine Blood LARGE (NEGATIVE) H 12/21/16 12:30 Urine Nitrate POSITIVE (NEGATIVE) H 12/21/16 12:30 Urine Bilirubin NEGATIVE (NEGATIVE) 12/21/16 12:30 Urine Urobilinogen 0.2 E.U./dL (0.2 - 1.0) 12/21/16 12:30 Ur Leukocyte Esterase LARGE (NEGATIVE) H 12/21/16 12:30 Urine RBC 50-100 /hpf (0-5) H 12/21/16 12:30 Urine WBC >100 /hpf (0-5) H 12/21/16 12:30 Ur Epithelial Cells FEW /lpf (FEW) 12/21/16 12:30 Urine Bacteria MANY /hpf (NONE SEEN) 12/21/16 12:30 RPR NONREACTIVE (NONREACTIVE) 12/21/16 11:35 - Physical Exam Vitals and I&O: Vital Signs Temp 97.7 F 12/26/16 17:29 Pulse 71 12/26/16 17:29 Resp 19 12/26/16 17:29 BP 88/64 12/26/16 17:29 Pulse Ox 99 12/26/16 17:29 Intake & Output 12/26/16 12/26/16 12/27/16 06:59 18:59 06:59 Intake Total 1200 Balance 1200 Intake: Oral 1200 Other: # Voids 3 4 # Bowel Movements 1 Active Medications: Current Medications Acetaminophen (Tylenol) 650 mg PO Q6HR PRN PRN Reason: Pain (Moderate) Stop: 02/19/17 16:17 Acetaminophen (Tylenol Extra Strength) 500 mg PO Q6HR PRN PRN Reason: Pain (Mild) Stop: 02/19/17 16:17 Bisacodyl (Dulcolax 10 Mg Supp) 10 mg RC HS YIFAN Stop: 02/19/17 20:59 Last Admin: 12/25/16 21:07 Dose: 10 mg Ciprofloxacin (Cipro) 250 mg PO BID [facility] Stop: 02/20/17 20:59 Last Admin: 12/26/16 16:23 Dose: 250 mg Ferrous Sulfate (Iron) 325 mg PO BID YIFAN Stop: 02/19/17 16:59 Last Admin: 12/26/16 16:24 Dose: 325 mg Insulin Aspart (Novolog Insulin Sliding Scale) 0 units SUBQ ACHS YIFAN PRN Reason: Protocol Stop: 02/19/17 17:04 Last Admin: 12/26/16 16:23 Dose: Not Given Lactobacillus Rhamnosus (Culturelle) 1 each PO DAILY [facility] Stop: 02/21/17 08:59 Last Admin: 12/26/16 10:02 Dose: 1 each Lorazepam (Ativan) 0.5 mg PO Q6HR PRN; Protocol PRN Reason: Agitation Stop: 02/19/17 20:12 Magnesium Hydroxide (Milk Of Magnesia) 30 ml PO DAILY PRN PRN Reason: Constipation Stop: 02/19/17 16:17 Metformin HCl (Glucophage) 500 mg PO BID [facility] Stop: 02/19/17 16:59 Last Admin: 12/26/16 16:23 Dose: 500 mg Miscellaneous (Probiotic Screen) 1 ea MC PRN PRN PRN Reason: PROTOCOL Stop: 02/20/17 14:29 Sodium Phosphate (Fleet Enema) 118 ml RC PRN PRN PRN Reason: Constipation Stop: 02/19/17 16:17 Tramadol HCl (Ultram) 50 mg PO Q6H PRN PRN Reason: Pain (Severe) Stop: 02/19/17 16:17 General: alert HEENT: NC/AT, PERRLA, EOMI, anicteric sclerae, throat clear Neck: Supple, No JVD, No thyromegaly, +2 carotid pulse wo bruit, No LAD, + JVD Lungs: CTAB Cardiovascular: RRR, Normal S1, Normal S2, without murmur Abdomen: soft, non-tender, non-distended Extremities: clear Neurological: no change Internal Medicine Assmt/Plan - Assessment Assessment: 1.QUADRIPRESIS.. 2.DM. 3.ANEMIA. 4.DEPRESSION - Plan Plan: CONTINUE ON CURRENT MEDICATION AND DIET. Nutritional Asmnt/Malnutr-PDOC - Dietary Evaluation Malnutrition Findings (Please click <Entered> for more info): Nutritional Asmnt/Malnutrition Start: 12/22/16 16: 48 Text: Status: Complete Freq: Document 12/22/16 16:48 YVONNE (Rec: 12/22/16 17:00 YVONNE [email or web address]) Nutritional Asmnt/Malnutrition Patient General Information Nutritional Screening Consult Diagnosis Reason for visit: refusal of care, UTI, 5150 Pertinent Medical Hx/Surgical Hx Quadriplegia secondary to spinal cord injury, DM Subjective Information 51 year old male from SNF. RD consult for blood glucose. [place] speaking, little [place]i. Pt was very pelasant. Visited pt during meal time, observed pt sitting upright in bed able to self feed. Teeth/ dentures intact. Limited physical assessment due to meal time, appeared thin, mild wasting only. Pt stated the food is good, no questions/ concerns at this time. Current Diet Order/ Nutrition Support Regular Pertinent Medications Dulcolax, Iron, Novolog, Culturelle, MOM, Glucophage, Fleet Enema Pertinent Labs A1c 7.2, POc glucose 165-290 since adm Nutritional Hx/Data Height 1.63 m Height (Calculated Centimeters) 162.6 Current Weight (lbs) 55.338 kg Weight (Calculated Kilograms) 55.3 Weight (Calculated Grams) 06573.3 [place] Body Weight 130 Weight Status Approriate GI Symptoms Usual diet at home [place] [facility] texture, thin liquids Skin Integrity/Comment: Ankur 15. Skin intact. Estimated Nutritional Goals Calories/Kcals/Kg IBW 130lb/59.1kg Kcals Calculated 1478-1773kcal (25-30kcal/kg) Protein Calculated 59g (1g/kg) Fluid: ml 1478-1773ml (1ml/kcal) Nutritional Problem 1. Problem Problem Altered nutrition related laboratory values related to Etiology DM aeb Signs/Symptoms: A1c 7.2, glucose 240 on adm Intervention/Recommendation Comments 1. Recommend [id number] with Boost glucose control QD. 2. Monitor weight. BMI 20.9 with mild wasting noted. Expected Outcomes/Goals Expected Outcomes/Goals 1. PO intake to meet at least 75% of estimated nutritinoal needs.
--- NOTE | 2016-12-26 20:27 | Progress Notes ---
DATE: 12/26/2016 SUBJECTIVE: The patient seen, chart reviewed, discussed with staff. The patient remains in better spirits. States he feels "okay." Denying any overt paranoia. He has been taking his medications, but does not like the Seroquel, states it makes him feel too tired. Sleeping fairly well, eating fairly well, getting along fairly well with staff and peers, currently gravely disabled, unable to care for his basic needs. ASSESSMENT: The patient is still symptomatic, somewhat depressed, anxious, concerns for paranoia, but actively denying. PLAN: We will DC Seroquel. We will continue to monitor. We will try to coordinate care with social work regarding safe discharge plan and good psychiatric followup. JOB# [id number]
[2016-12-27] MEDS: INSULIN ASPART SLIDING SCALE 100 UNITS/ML UNIT SUBQ SCH ×4 (07:02→21:17)
[2016-12-27] MEDS: Lactobacillus Rhamnosus 10 Billion CFU Capsule PO SCH (08:51)
[2016-12-27] MEDS: Ferrous Sulfate 325 MG TAB PO SCH ×2 (08:53→16:55)
--- NOTE | 2016-12-27 20:24 | Internal Medicine Prog Note ---
Internal Medicine Subjective - Subjective Service Date: 12/27/16 Patient seen and examined:: with staff Patient is:: awake, interactive, in bed, talking Per staff patient has:: no adverse event (HE IS TAKING MEDICATION.) Internal Medicine Objective - Results Result Diagrams: 12/21/16 11:35 12/21/16 11:35 Recent Labs: Laboratory Last Values WBC 5.8 Th/cmm (4.8-10.8) 12/21/16 11:35 RBC 4.14 Mil/cmm (4.30-5.70) L 12/21/16 11:35 Hgb 11.6 gm/dL (12-16) L 12/21/16 11:35 Hct 34.8 % (41.0-60) L 12/21/16 11:35 MCV 83.9 fl (80-99) 12/21/16 11:35 MCH 28.0 pg (26.0-30.0) 12/21/16 11:35 MCHC Differential 33.3 pg (28.0-36.0) 12/21/16 11:35 RDW 13.6 % (11.5-20.0) 12/21/16 11:35 Plt Count 321 Th/cmm (150-400) 12/21/16 11:35 MPV 7.0 fl 12/21/16 11:35 Neutrophils % 56.8 % (40.0-80.0) 12/21/16 11:35 Lymphocytes % 25.3 % (20.0-50.0) 12/21/16 11:35 Monocytes % 7.5 % (2.0-10.0) 12/21/16 11:35 Eosinophils % 9.0 % (0.0-5.0) H 12/21/16 11:35 Basophils % 1.4 % (0.0-2.0) 12/21/16 11:35 Sodium 133 mEq/L (136-145) L 12/21/16 11:35 Potassium 3.9 mEq/L (3.5-5.1) 12/21/16 11:35 Chloride 103 mEq/L (98-107) 12/21/16 11:35 Carbon Dioxide 24.4 mEq/L (21.0-31.0) 12/21/16 11:35 Anion Gap 9.5 (7.0-16.0) 12/21/16 11:35 BUN 13 mg/dL (7-25) 12/21/16 11:35 Creatinine 0.7 mg/dL (0.7-1.3) 12/21/16 11:35 Est GFR ( Amer) > 60.0 ml/min (>90) 12/21/16 11:35 Est GFR (Non-Af Amer) > 60.0 ml/min 12/21/16 11:35 BUN/Creatinine Ratio 18.6 12/21/16 11:35 Glucose 240 mg/dL (70-105) H 12/21/16 11:35 POC Glucose 148 MG/DL (70 - 105) H 12/27/16 15:59 Hemoglobin A1c % 7.2 % (4.0-6.0) H 12/21/16 11:25 Calcium 9.3 mg/dL (8.6-10.3) 12/21/16 11:35 Total Bilirubin 0.4 mg/dL (0.3-1.0) 12/21/16 11:35 AST 8 U/L (13-39) L 12/21/16 11:35 ALT 5 U/L (7-52) L 12/21/16 11:35 Alkaline Phosphatase 85 U/L (34-104) 12/21/16 11:35 Total Protein 7.5 gm/dL (6.0-8.3) 12/21/16 11:35 Albumin 3.7 gm/dL (4.2-5.5) L 12/21/16 11:35 Globulin 3.8 gm/dL 12/21/16 11:35 Albumin/Globulin Ratio 1.0 (1.0-1.8) 12/21/16 11:35 Triglycerides 146 mg/dL (<150) 12/21/16 11:35 Cholesterol 153 mg/dL (<200) 12/21/16 11:35 LDL Cholesterol Direct 107 mg/dL (75-193) 12/21/16 11:35 HDL Cholesterol 34 mg/dL (23-92) 12/21/16 11:35 TSH 2.28 uIU/ml (0.34-5.60) 12/21/16 11:35 Urine Source CLEAN C 12/21/16 12:30 Urine Color YELLOW 12/21/16 12:30 Urine Clarity CLOUDY (CLEAR) 12/21/16 12:30 Urine pH 6.0 (4.6 - 8.0) 12/21/16 12:30 Ur Specific [place] <= 1.005 (1.005-1.030) 12/21/16 12:30 Urine Protein NEGATIVE mg/dL (NEGATIVE) 12/21/16 12:30 Urine Glucose (UA) NEGATIVE mg/dL (NEGATIVE) 12/21/16 12:30 Urine Ketones NEGATIVE mg/dL (NEGATIVE) 12/21/16 12:30 Urine Blood LARGE (NEGATIVE) H 12/21/16 12:30 Urine Nitrate POSITIVE (NEGATIVE) H 12/21/16 12:30 Urine Bilirubin NEGATIVE (NEGATIVE) 12/21/16 12:30 Urine Urobilinogen 0.2 E.U./dL (0.2 - 1.0) 12/21/16 12:30 Ur Leukocyte Esterase LARGE (NEGATIVE) H 12/21/16 12:30 Urine RBC 50-100 /hpf (0-5) H 12/21/16 12:30 Urine WBC >100 /hpf (0-5) H 12/21/16 12:30 Ur Epithelial Cells FEW /lpf (FEW) 12/21/16 12:30 Urine Bacteria MANY /hpf (NONE SEEN) 12/21/16 12:30 RPR NONREACTIVE (NONREACTIVE) 12/21/16 11:35 - Physical Exam Vitals and I&O: Vital Signs Temp 97.3 F 12/27/16 20:00 Pulse 70 12/27/16 20:00 Resp 18 12/27/16 20:00 BP 116/80 12/27/16 20:00 Pulse Ox 99 12/27/16 20:00 Intake & Output 12/27/16 12/27/16 12/28/16 06:59 18:59 06:59 Intake Total 80 1200 Balance 80 1200 Weight (lbs) 54.25 kg Intake: Oral 80 1200 Other: # Voids 2 4 # Bowel Movements 0 0 Active Medications: Current Medications Acetaminophen (Tylenol) 650 mg PO Q6HR PRN PRN Reason: Pain (Moderate) Stop: 02/19/17 16:17 Acetaminophen (Tylenol Extra Strength) 500 mg PO Q6HR PRN PRN Reason: Pain (Mild) Stop: 02/19/17 16:17 Bisacodyl (Dulcolax 10 Mg Supp) 10 mg RC HS [facility] Stop: 02/19/17 20:59 Last Admin: 12/26/16 20:29 Dose: 10 mg Ciprofloxacin (Cipro) 250 mg PO BID [facility] Stop: 02/20/17 20:59 Last Admin: 12/27/16 16:54 Dose: 250 mg Ferrous Sulfate (Iron) 325 mg PO BID [facility] Stop: 02/19/17 16:59 Last Admin: 12/27/16 16:55 Dose: 325 mg Insulin Aspart (Novolog Insulin Sliding Scale) 0 units SUBQ ACHS YIFAN PRN Reason: Protocol Stop: 02/19/17 17:04 Last Admin: 12/27/16 16:56 Dose: Not Given Lactobacillus Rhamnosus (Culturelle) 1 each PO DAILY [facility] Stop: 02/21/17 08:59 Last Admin: 12/27/16 08:51 Dose: 1 each Lorazepam (Ativan) 0.5 mg PO Q6HR PRN; Protocol PRN Reason: Agitation Stop: 02/19/17 20:12 Magnesium Hydroxide (Milk Of Magnesia) 30 ml PO DAILY PRN PRN Reason: Constipation Stop: 02/19/17 16:17 Metformin HCl (Glucophage) 500 mg PO BID [facility] Stop: 02/19/17 16:59 Last Admin: 12/27/16 16:53 Dose: 500 mg Miscellaneous (Probiotic Screen) 1 ea MC PRN PRN PRN Reason: PROTOCOL Stop: 02/20/17 14:29 Sodium Phosphate (Fleet Enema) 118 ml RC PRN PRN PRN Reason: Constipation Stop: 02/19/17 16:17 Tramadol HCl (Ultram) 50 mg PO Q6H PRN PRN Reason: Pain (Severe) Stop: 02/19/17 16:17 General: alert HEENT: NC/AT, PERRLA, EOMI, anicteric sclerae, throat clear Neck: Supple, No JVD, No thyromegaly, +2 carotid pulse wo bruit, No LAD, + JVD Lungs: CTAB Cardiovascular: RRR, Normal S1, Normal S2, without murmur Abdomen: soft, non-tender, non-distended Extremities: clear Neurological: no change Internal Medicine Assmt/Plan - Assessment Assessment: 1.QUADRIPRESIS.. 2.DM. 3.ANEMIA. 4.DEPRESSION - Plan Plan: CONTINUE ON CURRENT MEDICATION AND DIET. Nutritional Asmnt/Malnutr-PDOC - Dietary Evaluation Malnutrition Findings (Please click <Entered> for more info): Nutritional Asmnt/Malnutrition Start: 12/22/16 16: 48 Text: Status: Complete Freq: Document 12/22/16 16:48 YVONNE (Rec: 12/22/16 17:00 GSEMMY [email or web address]) Nutritional Asmnt/Malnutrition Patient General Information Nutritional Screening Consult Diagnosis Reason for visit: refusal of care, UTI, 5150 Pertinent Medical Hx/Surgical Hx Quadriplegia secondary to spinal cord injury, DM Subjective Information 51 year old male from SNF. RD consult for blood glucose. Maltese speaking, little Northern Irish. Pt was very pelasant. Visited pt during meal time, observed pt sitting upright in bed able to self feed. Teeth/ dentures intact. Limited physical assessment due to meal time, appeared thin, mild wasting only. Pt stated the food is good, no questions/ concerns at this time. Current Diet Order/ Nutrition Support Regular Pertinent Medications Dulcolax, Iron, Novolog, Culturelle, MOM, Glucophage, Fleet Enema Pertinent Labs A1c 7.2, POc glucose 165-290 since adm Nutritional Hx/Data Height 1.63 m Height (Calculated Centimeters) 162.6 Current Weight (lbs) 55.338 kg Weight (Calculated Kilograms) 55.3 Weight (Calculated Grams) 79435.3 [place] Body Weight 130 Weight Status Approriate GI Symptoms Usual diet at home [place] [facility], thin liquids Skin Integrity/Comment: Ankur 15. Skin intact. Estimated Nutritional Goals Calories/Kcals/Kg IBW 130lb/59.1kg Kcals Calculated 1478-1773kcal (25-30kcal/kg) Protein Calculated 59g (1g/kg) Fluid: ml 1478-1773ml (1ml/kcal) Nutritional Problem 1. Problem Problem Altered nutrition related laboratory values related to Etiology DM aeb Signs/Symptoms: A1c 7.2, glucose 240 on adm Intervention/Recommendation Comments 1. Recommend CONA03iw with Boost glucose control QD. 2. Monitor weight. BMI 20.9 with mild wasting noted. Expected Outcomes/Goals Expected Outcomes/Goals 1. PO intake to meet at least 75% of estimated nutritinoal needs.
--- NOTE | 2016-12-27 22:27 | Progress Notes ---
DATE: 12/27/2016 SUBJECTIVE: The patient seen, chart reviewed, and discussed with the staff. The patient's symptoms seem to be improving. No overt paranoia, calm, friendly, cooperative. The patient is oriented and friendly. Does not want to take the Seroquel, says he is sleeping well, eating well. The patient is noting that he is happy with the care in the hospital and is agreeable to placement. Medications were noted, no side effects, discussed with staff, no events. ASSESSMENT: The patient seems to be improving. No overt paranoia noted, linear and engaged. PLAN: Continue to monitor. He is currently gravely disabled. We are trying to help him with the placement. JOB# [id number]
[2016-12-28] MEDS: INSULIN ASPART SLIDING SCALE 100 UNITS/ML UNIT SUBQ SCH ×4 (06:41→21:00)
[2016-12-28] MEDS: Ferrous Sulfate 325 MG TAB PO SCH ×2 (08:19→16:28)
[2016-12-28] MEDS: Lactobacillus Rhamnosus 10 Billion CFU Capsule PO SCH (08:20)
--- NOTE | 2016-12-28 16:50 | Internal Medicine Prog Note ---
Internal Medicine Subjective - Subjective Service Date: 12/28/16 Patient seen and examined:: with staff Patient is:: awake, interactive, in bed, talking Per staff patient has:: no adverse event (HE IS TAKING MEDICATION.) Internal Medicine Objective - Results Result Diagrams: 12/21/16 11:35 12/21/16 11:35 Recent Labs: Laboratory Last Values WBC 5.8 Th/cmm (4.8-10.8) 12/21/16 11:35 RBC 4.14 Mil/cmm (4.30-5.70) L 12/21/16 11:35 Hgb 11.6 gm/dL (12-16) L 12/21/16 11:35 Hct 34.8 % (41.0-60) L 12/21/16 11:35 MCV 83.9 fl (80-99) 12/21/16 11:35 MCH 28.0 pg (26.0-30.0) 12/21/16 11:35 MCHC Differential 33.3 pg (28.0-36.0) 12/21/16 11:35 RDW 13.6 % (11.5-20.0) 12/21/16 11:35 Plt Count 321 Th/cmm (150-400) 12/21/16 11:35 MPV 7.0 fl 12/21/16 11:35 Neutrophils % 56.8 % (40.0-80.0) 12/21/16 11:35 Lymphocytes % 25.3 % (20.0-50.0) 12/21/16 11:35 Monocytes % 7.5 % (2.0-10.0) 12/21/16 11:35 Eosinophils % 9.0 % (0.0-5.0) H 12/21/16 11:35 Basophils % 1.4 % (0.0-2.0) 12/21/16 11:35 Sodium 133 mEq/L (136-145) L 12/21/16 11:35 Potassium 3.9 mEq/L (3.5-5.1) 12/21/16 11:35 Chloride 103 mEq/L (98-107) 12/21/16 11:35 Carbon Dioxide 24.4 mEq/L (21.0-31.0) 12/21/16 11:35 Anion Gap 9.5 (7.0-16.0) 12/21/16 11:35 BUN 13 mg/dL (7-25) 12/21/16 11:35 Creatinine 0.7 mg/dL (0.7-1.3) 12/21/16 11:35 Est GFR ( Amer) > 60.0 ml/min (>90) 12/21/16 11:35 Est GFR (Non-Af Amer) > 60.0 ml/min 12/21/16 11:35 BUN/Creatinine Ratio 18.6 12/21/16 11:35 Glucose 240 mg/dL (70-105) H 12/21/16 11:35 POC Glucose 183 MG/DL (70 - 105) H 12/28/16 11:17 Hemoglobin A1c % 7.2 % (4.0-6.0) H 12/21/16 11:25 Calcium 9.3 mg/dL (8.6-10.3) 12/21/16 11:35 Total Bilirubin 0.4 mg/dL (0.3-1.0) 12/21/16 11:35 AST 8 U/L (13-39) L 12/21/16 11:35 ALT 5 U/L (7-52) L 12/21/16 11:35 Alkaline Phosphatase 85 U/L (34-104) 12/21/16 11:35 Total Protein 7.5 gm/dL (6.0-8.3) 12/21/16 11:35 Albumin 3.7 gm/dL (4.2-5.5) L 12/21/16 11:35 Globulin 3.8 gm/dL 12/21/16 11:35 Albumin/Globulin Ratio 1.0 (1.0-1.8) 12/21/16 11:35 Triglycerides 146 mg/dL (<150) 12/21/16 11:35 Cholesterol 153 mg/dL (<200) 12/21/16 11:35 LDL Cholesterol Direct 107 mg/dL (75-193) 12/21/16 11:35 HDL Cholesterol 34 mg/dL (23-92) 12/21/16 11:35 TSH 2.28 uIU/ml (0.34-5.60) 12/21/16 11:35 Urine Source CLEAN C 12/21/16 12:30 Urine Color YELLOW 12/21/16 12:30 Urine Clarity CLOUDY (CLEAR) 12/21/16 12:30 Urine pH 6.0 (4.6 - 8.0) 12/21/16 12:30 Ur Specific [place] <= 1.005 (1.005-1.030) 12/21/16 12:30 Urine Protein NEGATIVE mg/dL (NEGATIVE) 12/21/16 12:30 Urine Glucose (UA) NEGATIVE mg/dL (NEGATIVE) 12/21/16 12:30 Urine Ketones NEGATIVE mg/dL (NEGATIVE) 12/21/16 12:30 Urine Blood LARGE (NEGATIVE) H 12/21/16 12:30 Urine Nitrate POSITIVE (NEGATIVE) H 12/21/16 12:30 Urine Bilirubin NEGATIVE (NEGATIVE) 12/21/16 12:30 Urine Urobilinogen 0.2 E.U./dL (0.2 - 1.0) 12/21/16 12:30 Ur Leukocyte Esterase LARGE (NEGATIVE) H 12/21/16 12:30 Urine RBC 50-100 /hpf (0-5) H 12/21/16 12:30 Urine WBC >100 /hpf (0-5) H 12/21/16 12:30 Ur Epithelial Cells FEW /lpf (FEW) 12/21/16 12:30 Urine Bacteria MANY /hpf (NONE SEEN) 12/21/16 12:30 RPR NONREACTIVE (NONREACTIVE) 12/21/16 11:35 - Physical Exam Vitals and I&O: Vital Signs Temp 97.7 F 12/28/16 06:36 Pulse 67 12/28/16 08:00 Resp 20 12/28/16 08:00 BP 109/65 12/28/16 06:36 Pulse Ox 99 12/28/16 06:36 Intake & Output 12/27/16 12/28/16 12/28/16 18:59 06:59 18:59 Intake Total 1200 120 Balance 1200 120 Weight (lbs) 54.25 kg Intake: Oral 1200 120 Other: # Voids 4 3 # Bowel Movements 0 Active Medications: Current Medications Acetaminophen (Tylenol) 650 mg PO Q6HR PRN PRN Reason: Pain (Moderate) Stop: 02/19/17 16:17 Acetaminophen (Tylenol Extra Strength) 500 mg PO Q6HR PRN PRN Reason: Pain (Mild) Stop: 02/19/17 16:17 Bisacodyl (Dulcolax 10 Mg Supp) 10 mg RC HS [facility] Stop: 02/19/17 20:59 Last Admin: 12/27/16 21:17 Dose: 10 mg Ciprofloxacin (Cipro) 250 mg PO BID [facility] Stop: 02/20/17 20:59 Last Admin: 12/28/16 16:27 Dose: 250 mg Ferrous Sulfate (Iron) 325 mg PO BID [facility] Stop: 02/19/17 16:59 Last Admin: 12/28/16 16:28 Dose: 325 mg Insulin Aspart (Novolog Insulin Sliding Scale) 0 units SUBQ ACHS YIFAN PRN Reason: Protocol Stop: 02/19/17 17:04 Last Admin: 12/28/16 16:28 Dose: 4 units Lactobacillus Rhamnosus (Culturelle) 1 each PO DAILY [facility] Stop: 02/21/17 08:59 Last Admin: 12/28/16 08:20 Dose: 1 each Lorazepam (Ativan) 0.5 mg PO Q6HR PRN; Protocol PRN Reason: Agitation Stop: 02/19/17 20:12 Magnesium Hydroxide (Milk Of Magnesia) 30 ml PO DAILY PRN PRN Reason: Constipation Stop: 02/19/17 16:17 Metformin HCl (Glucophage) 500 mg PO BID [facility] Stop: 02/19/17 16:59 Last Admin: 12/28/16 16:27 Dose: 500 mg Miscellaneous (Probiotic Screen) 1 ea MC PRN PRN PRN Reason: PROTOCOL Stop: 02/20/17 14:29 Sodium Phosphate (Fleet Enema) 118 ml RC PRN PRN PRN Reason: Constipation Stop: 02/19/17 16:17 Tramadol HCl (Ultram) 50 mg PO Q6H PRN PRN Reason: Pain (Severe) Stop: 02/19/17 16:17 General: alert HEENT: NC/AT, PERRLA, EOMI, anicteric sclerae, throat clear Neck: Supple, No JVD, No thyromegaly, +2 carotid pulse wo bruit, No LAD, + JVD Lungs: CTAB Cardiovascular: RRR, Normal S1, Normal S2, without murmur Abdomen: soft, non-tender, non-distended Extremities: clear Neurological: no change Internal Medicine Assmt/Plan - Assessment Assessment: 1.QUADRIPRESIS.. 2.DM. 3.ANEMIA. 4.DEPRESSION - Plan Plan: CONTINUE ON CURRENT MEDICATION AND DIET.HE AGREE TO GO TO [facility]. Nutritional Asmnt/Malnutr-PDOC - Dietary Evaluation Malnutrition Findings (Please click <Entered> for more info): Nutritional Asmnt/Malnutrition Start: 12/22/16 16: 48 Text: Status: Complete Freq: Document 12/22/16 16:48 GSUN (Rec: 12/22/16 17:00 GSUN [email or web address]) Nutritional Asmnt/Malnutrition Patient General Information Nutritional Screening Consult Diagnosis Reason for visit: refusal of care, UTI, 5150 Pertinent Medical Hx/Surgical Hx Quadriplegia secondary to spinal cord injury, DM Subjective Information 51 year old male from SNF. RD consult for blood glucose. Algerian speaking, little German. Pt was very pelasant. Visited pt during meal time, observed pt sitting upright in bed able to self feed. Teeth/ dentures intact. Limited physical assessment due to meal time, appeared thin, mild wasting only. Pt stated the food is good, no questions/ concerns at this time. Current Diet Order/ Nutrition Support Regular Pertinent Medications Dulcolax, Iron, Novolog, Culturelle, MOM, Glucophage, Fleet Enema Pertinent Labs A1c 7.2, POc glucose 165-290 since adm Nutritional Hx/Data Height 1.63 m Height (Calculated Centimeters) 162.6 Current Weight (lbs) 55.338 kg Weight (Calculated Kilograms) 55.3 Weight (Calculated Grams) 75651.3 [place] Body Weight 130 Weight Status Approriate GI Symptoms Usual diet at home [place] [facility] texture, thin liquids Skin Integrity/Comment: Ankur 15. Skin intact. Estimated Nutritional Goals Calories/Kcals/Kg IBW 130lb/59.1kg Kcals Calculated 1478-1773kcal (25-30kcal/kg) Protein Calculated 59g (1g/kg) Fluid: ml 1478-1773ml (1ml/kcal) Nutritional Problem 1. Problem Problem Altered nutrition related laboratory values related to Etiology DM aeb Signs/Symptoms: A1c 7.2, glucose 240 on adm Intervention/Recommendation Comments 1. Recommend [id number] with Boost glucose control QD. 2. Monitor weight. BMI 20.9 with mild wasting noted. Expected Outcomes/Goals Expected Outcomes/Goals 1. PO intake to meet at least 75% of estimated nutritinoal needs.
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
[2016-12-29] MEDS: INSULIN ASPART SLIDING SCALE 100 UNITS/ML UNIT SUBQ SCH ×4 (06:34→20:50)
[2016-12-29] MEDS: Ferrous Sulfate 325 MG TAB PO SCH ×2 (08:45→16:51)
[2016-12-29] MEDS: Lactobacillus Rhamnosus 10 Billion CFU Capsule PO SCH (08:45)
--- NOTE | 2016-12-29 21:25 | Internal Medicine Prog Note ---
Internal Medicine Subjective - Subjective Service Date: 12/29/16 Patient seen and examined:: without staff Patient is:: awake, interactive, in bed, talking Per staff patient has:: no adverse event (HE IS TAKING MEDICATION.) Internal Medicine Objective - Results Result Diagrams: 12/21/16 11:35 12/21/16 11:35 Recent Labs: Laboratory Last Values WBC 5.8 Th/cmm (4.8-10.8) 12/21/16 11:35 RBC 4.14 Mil/cmm (4.30-5.70) L 12/21/16 11:35 Hgb 11.6 gm/dL (12-16) L 12/21/16 11:35 Hct 34.8 % (41.0-60) L 12/21/16 11:35 MCV 83.9 fl (80-99) 12/21/16 11:35 MCH 28.0 pg (26.0-30.0) 12/21/16 11:35 MCHC Differential 33.3 pg (28.0-36.0) 12/21/16 11:35 RDW 13.6 % (11.5-20.0) 12/21/16 11:35 Plt Count 321 Th/cmm (150-400) 12/21/16 11:35 MPV 7.0 fl 12/21/16 11:35 Neutrophils % 56.8 % (40.0-80.0) 12/21/16 11:35 Lymphocytes % 25.3 % (20.0-50.0) 12/21/16 11:35 Monocytes % 7.5 % (2.0-10.0) 12/21/16 11:35 Eosinophils % 9.0 % (0.0-5.0) H 12/21/16 11:35 Basophils % 1.4 % (0.0-2.0) 12/21/16 11:35 Sodium 133 mEq/L (136-145) L 12/21/16 11:35 Potassium 3.9 mEq/L (3.5-5.1) 12/21/16 11:35 Chloride 103 mEq/L (98-107) 12/21/16 11:35 Carbon Dioxide 24.4 mEq/L (21.0-31.0) 12/21/16 11:35 Anion Gap 9.5 (7.0-16.0) 12/21/16 11:35 BUN 13 mg/dL (7-25) 12/21/16 11:35 Creatinine 0.7 mg/dL (0.7-1.3) 12/21/16 11:35 Est GFR ( Amer) > 60.0 ml/min (>90) 12/21/16 11:35 Est GFR (Non-Af Amer) > 60.0 ml/min 12/21/16 11:35 BUN/Creatinine Ratio 18.6 12/21/16 11:35 Glucose 240 mg/dL (70-105) H 12/21/16 11:35 POC Glucose 220 MG/DL (70 - 105) H 12/29/16 20:30 Hemoglobin A1c % 7.2 % (4.0-6.0) H 12/21/16 11:25 Calcium 9.3 mg/dL (8.6-10.3) 12/21/16 11:35 Total Bilirubin 0.4 mg/dL (0.3-1.0) 12/21/16 11:35 AST 8 U/L (13-39) L 12/21/16 11:35 ALT 5 U/L (7-52) L 12/21/16 11:35 Alkaline Phosphatase 85 U/L (34-104) 12/21/16 11:35 Total Protein 7.5 gm/dL (6.0-8.3) 12/21/16 11:35 Albumin 3.7 gm/dL (4.2-5.5) L 12/21/16 11:35 Globulin 3.8 gm/dL 12/21/16 11:35 Albumin/Globulin Ratio 1.0 (1.0-1.8) 12/21/16 11:35 Triglycerides 146 mg/dL (<150) 12/21/16 11:35 Cholesterol 153 mg/dL (<200) 12/21/16 11:35 LDL Cholesterol Direct 107 mg/dL (75-193) 12/21/16 11:35 HDL Cholesterol 34 mg/dL (23-92) 12/21/16 11:35 TSH 2.28 uIU/ml (0.34-5.60) 12/21/16 11:35 Urine Source CLEAN C 12/21/16 12:30 Urine Color YELLOW 12/21/16 12:30 Urine Clarity CLOUDY (CLEAR) 12/21/16 12:30 Urine pH 6.0 (4.6 - 8.0) 12/21/16 12:30 Ur Specific [place] <= 1.005 (1.005-1.030) 12/21/16 12:30 Urine Protein NEGATIVE mg/dL (NEGATIVE) 12/21/16 12:30 Urine Glucose (UA) NEGATIVE mg/dL (NEGATIVE) 12/21/16 12:30 Urine Ketones NEGATIVE mg/dL (NEGATIVE) 12/21/16 12:30 Urine Blood LARGE (NEGATIVE) H 12/21/16 12:30 Urine Nitrate POSITIVE (NEGATIVE) H 12/21/16 12:30 Urine Bilirubin NEGATIVE (NEGATIVE) 12/21/16 12:30 Urine Urobilinogen 0.2 E.U./dL (0.2 - 1.0) 12/21/16 12:30 Ur Leukocyte Esterase LARGE (NEGATIVE) H 12/21/16 12:30 Urine RBC 50-100 /hpf (0-5) H 12/21/16 12:30 Urine WBC >100 /hpf (0-5) H 12/21/16 12:30 Ur Epithelial Cells FEW /lpf (FEW) 12/21/16 12:30 Urine Bacteria MANY /hpf (NONE SEEN) 12/21/16 12:30 RPR NONREACTIVE (NONREACTIVE) 12/21/16 11:35 - Physical Exam Vitals and I&O: Vital Signs Temp 99.0 F 12/29/16 20:00 Pulse 80 12/29/16 20:00 Resp 20 12/29/16 20:00 BP 87/55 12/29/16 20:00 Pulse Ox 98 12/29/16 20:00 Intake & Output 12/29/16 12/29/16 12/30/16 06:59 18:59 06:59 Intake Total 120 Balance 120 Intake: Oral 120 Other: # Voids 3 Active Medications: Current Medications Acetaminophen (Tylenol) 650 mg PO Q6HR PRN PRN Reason: Pain (Moderate) Stop: 02/19/17 16:17 Acetaminophen (Tylenol Extra Strength) 500 mg PO Q6HR PRN PRN Reason: Pain (Mild) Stop: 02/19/17 16:17 Bisacodyl (Dulcolax 10 Mg Supp) 10 mg RC HS YIFAN Stop: 02/19/17 20:59 Last Admin: 12/29/16 21:25 Dose: 10 mg Ciprofloxacin (Cipro) 250 mg PO BID YIFAN Stop: 02/20/17 20:59 Last Admin: 12/29/16 16:50 Dose: 250 mg Ferrous Sulfate (Iron) 325 mg PO BID YIFAN Stop: 02/19/17 16:59 Last Admin: 12/29/16 16:51 Dose: 325 mg Insulin Aspart (Novolog Insulin Sliding Scale) 0 units SUBQ ACHS YIFAN PRN Reason: Protocol Stop: 02/19/17 17:04 Last Admin: 12/29/16 20:50 Dose: 4 units Lactobacillus Rhamnosus (Culturelle) 1 each PO DAILY YIFAN Stop: 02/21/17 08:59 Last Admin: 12/29/16 08:45 Dose: 1 each Magnesium Hydroxide (Milk Of Magnesia) 30 ml PO DAILY PRN PRN Reason: Constipation Stop: 02/19/17 16:17 Metformin HCl (Glucophage) 500 mg PO BID [facility] Stop: 02/19/17 16:59 Last Admin: 12/29/16 16:51 Dose: 500 mg Miscellaneous (Probiotic Screen) 1 ea PRN PRN PRN Reason: PROTOCOL Stop: 02/20/17 14:29 Sodium Phosphate (Fleet Enema) 118 ml RC PRN PRN PRN Reason: Constipation Stop: 02/19/17 16:17 Tramadol HCl (Ultram) 50 mg PO Q6H PRN PRN Reason: Pain (Severe) Stop: 02/19/17 16:17 General: alert HEENT: NC/AT, PERRLA, EOMI, anicteric sclerae, throat clear Neck: Supple, No JVD, No thyromegaly, +2 carotid pulse wo bruit, No LAD, + JVD Lungs: CTAB Cardiovascular: RRR, Normal S1, Normal S2, without murmur Abdomen: soft, non-tender, non-distended Extremities: clear Neurological: no change Internal Medicine Assmt/Plan - Assessment Assessment: 1.QUADRIPRESIS.. 2.DM. 3.ANEMIA. 4.DEPRESSION - Plan Plan: CONTINUE ON CURRENT MEDICATION AND DIET.HE AGREE TO GO TO [facility]. Nutritional Asmnt/Malnutr-PDOC - Dietary Evaluation Malnutrition Findings (Please click <Entered> for more info): Nutritional Asmnt/Malnutrition Start: 12/22/16 16: 48 Text: Status: Complete Freq: Document 12/22/16 16:48 YVONNE (Rec: 12/22/16 17:00 GSEMMY [email or web address]) Nutritional Asmnt/Malnutrition Patient General Information Nutritional Screening Consult Diagnosis Reason for visit: refusal of care, UTI, 5150 Pertinent Medical Hx/Surgical Hx Quadriplegia secondary to spinal cord injury, DM Subjective Information 51 year old male from SNF. RD consult for blood glucose. [place] Verdean speaking, little Amharic. Pt was very pelasant. Visited pt during meal time, observed pt sitting upright in bed able to self feed. Teeth/ dentures intact. Limited physical assessment due to meal time, appeared thin, mild wasting only. Pt stated the food is good, no questions/ concerns at this time. Current Diet Order/ Nutrition Support Regular Pertinent Medications Dulcolax, Iron, Novolog, Culturelle, MOM, Glucophage, Fleet Enema Pertinent Labs A1c 7.2, POc glucose 165-290 since adm Nutritional Hx/Data Height 1.63 m Height (Calculated Centimeters) 162.6 Current Weight (lbs) 55.338 kg Weight (Calculated Kilograms) 55.3 Weight (Calculated Grams) 20943.3 [place] Body Weight 130 Weight Status Approriate GI Symptoms Usual diet at home [place] [facility] regular texture, thin liquids Skin Integrity/Comment: Ankur 15. Skin intact. Estimated Nutritional Goals Calories/Kcals/Kg IBW 130lb/59.1kg Kcals Calculated 1478-1773kcal (25-30kcal/kg) Protein Calculated 59g (1g/kg) Fluid: ml 1478-1773ml (1ml/kcal) Nutritional Problem 1. Problem Problem Altered nutrition related laboratory values related to Etiology DM aeb Signs/Symptoms: A1c 7.2, glucose 240 on adm Intervention/Recommendation Comments 1. Recommend [id number] with Boost glucose control QD. 2. Monitor weight. BMI 20.9 with mild wasting noted. Expected Outcomes/Goals Expected Outcomes/Goals 1. PO intake to meet at least 75% of estimated nutritinoal needs.
--- NOTE | 2016-12-29 21:37 | Progress Notes ---
DATE: 12/29/2016 SUBJECTIVE: The patient seen, chart reviewed, discussed with staff. The patient noting improved mood, linear and engaged apparently there were some issues of him going to __facility__. He apparently did not want to go yesterday , so we had to hold his discharge. He cannot take care of herself. The patient is apparently agreeable to go to the [facility]. central supply worker spoke with him. When I spoke with him, he was someone ambivalent. I did explain to him that it is difficult to find a place that are able to care for his needs. He seemed to accept this. Sleeping well, eating well, linear and engaged, accepting of treatment. No overt paranoia. ASSESSMENT: Fair attention ADLs. Fair eye contact. Speech within normal limits. Mood "okay." Affect constricted. Thought processes were linear and engaged, no SI, no HI, no overt psychotic symptoms. Insight and judgment fair. PLAN: [facility] has accepted that the patient per the social services. The patient was amenable to going there. We will discharge him to [facility] today. JOB# [id number]
[2016-12-30] MEDS: INSULIN ASPART SLIDING SCALE 100 UNITS/ML UNIT SUBQ SCH ×4 (06:42→21:15)
[2016-12-30] MEDS: Lactobacillus Rhamnosus 10 Billion CFU Capsule PO SCH (09:45)
[2016-12-30] MEDS: Ferrous Sulfate 325 MG TAB PO SCH ×2 (09:45→17:39)
--- NOTE | 2016-12-30 14:40 | Internal Medicine Prog Note ---
Internal Medicine Subjective - Subjective Service Date: 12/30/16 Patient seen and examined:: with staff (HE FEELS BETTER,NO COMPLAINT.) Patient is:: awake, interactive, in bed, talking Per staff patient has:: no adverse event (HE IS TAKING MEDICATION.) Internal Medicine Objective - Results Result Diagrams: 12/21/16 11:35 12/21/16 11:35 Recent Labs: Laboratory Last Values WBC 5.8 Th/cmm (4.8-10.8) 12/21/16 11:35 RBC 4.14 Mil/cmm (4.30-5.70) L 12/21/16 11:35 Hgb 11.6 gm/dL (12-16) L 12/21/16 11:35 Hct 34.8 % (41.0-60) L 12/21/16 11:35 MCV 83.9 fl (80-99) 12/21/16 11:35 MCH 28.0 pg (26.0-30.0) 12/21/16 11:35 MCHC Differential 33.3 pg (28.0-36.0) 12/21/16 11:35 RDW 13.6 % (11.5-20.0) 12/21/16 11:35 Plt Count 321 Th/cmm (150-400) 12/21/16 11:35 MPV 7.0 fl 12/21/16 11:35 Neutrophils % 56.8 % (40.0-80.0) 12/21/16 11:35 Lymphocytes % 25.3 % (20.0-50.0) 12/21/16 11:35 Monocytes % 7.5 % (2.0-10.0) 12/21/16 11:35 Eosinophils % 9.0 % (0.0-5.0) H 12/21/16 11:35 Basophils % 1.4 % (0.0-2.0) 12/21/16 11:35 Sodium 133 mEq/L (136-145) L 12/21/16 11:35 Potassium 3.9 mEq/L (3.5-5.1) 12/21/16 11:35 Chloride 103 mEq/L (98-107) 12/21/16 11:35 Carbon Dioxide 24.4 mEq/L (21.0-31.0) 12/21/16 11:35 Anion Gap 9.5 (7.0-16.0) 12/21/16 11:35 BUN 13 mg/dL (7-25) 12/21/16 11:35 Creatinine 0.7 mg/dL (0.7-1.3) 12/21/16 11:35 Est GFR ( Amer) > 60.0 ml/min (>90) 12/21/16 11:35 Est GFR (Non-Af Amer) > 60.0 ml/min 12/21/16 11:35 BUN/Creatinine Ratio 18.6 12/21/16 11:35 Glucose 240 mg/dL (70-105) H 12/21/16 11:35 POC Glucose 140 MG/DL (70 - 105) H 12/30/16 12:06 Hemoglobin A1c % 7.2 % (4.0-6.0) H 12/21/16 11:25 Calcium 9.3 mg/dL (8.6-10.3) 12/21/16 11:35 Total Bilirubin 0.4 mg/dL (0.3-1.0) 12/21/16 11:35 AST 8 U/L (13-39) L 12/21/16 11:35 ALT 5 U/L (7-52) L 12/21/16 11:35 Alkaline Phosphatase 85 U/L (34-104) 12/21/16 11:35 Total Protein 7.5 gm/dL (6.0-8.3) 12/21/16 11:35 Albumin 3.7 gm/dL (4.2-5.5) L 12/21/16 11:35 Globulin 3.8 gm/dL 12/21/16 11:35 Albumin/Globulin Ratio 1.0 (1.0-1.8) 12/21/16 11:35 Triglycerides 146 mg/dL (<150) 12/21/16 11:35 Cholesterol 153 mg/dL (<200) 12/21/16 11:35 LDL Cholesterol Direct 107 mg/dL (75-193) 12/21/16 11:35 HDL Cholesterol 34 mg/dL (23-92) 12/21/16 11:35 TSH 2.28 uIU/ml (0.34-5.60) 12/21/16 11:35 Urine Source CLEAN C 12/21/16 12:30 Urine Color YELLOW 12/21/16 12:30 Urine Clarity CLOUDY (CLEAR) 12/21/16 12:30 Urine pH 6.0 (4.6 - 8.0) 12/21/16 12:30 Ur Specific [place] <= 1.005 (1.005-1.030) 12/21/16 12:30 Urine Protein NEGATIVE mg/dL (NEGATIVE) 12/21/16 12:30 Urine Glucose (UA) NEGATIVE mg/dL (NEGATIVE) 12/21/16 12:30 Urine Ketones NEGATIVE mg/dL (NEGATIVE) 12/21/16 12:30 Urine Blood LARGE (NEGATIVE) H 12/21/16 12:30 Urine Nitrate POSITIVE (NEGATIVE) H 12/21/16 12:30 Urine Bilirubin NEGATIVE (NEGATIVE) 12/21/16 12:30 Urine Urobilinogen 0.2 E.U./dL (0.2 - 1.0) 12/21/16 12:30 Ur Leukocyte Esterase LARGE (NEGATIVE) H 12/21/16 12:30 Urine RBC 50-100 /hpf (0-5) H 12/21/16 12:30 Urine WBC >100 /hpf (0-5) H 12/21/16 12:30 Ur Epithelial Cells FEW /lpf (FEW) 12/21/16 12:30 Urine Bacteria MANY /hpf (NONE SEEN) 12/21/16 12:30 RPR NONREACTIVE (NONREACTIVE) 12/21/16 11:35 - Physical Exam Vitals and I&O: Vital Signs Temp 97.4 F 12/30/16 07:04 Pulse 69 12/30/16 07:04 Resp 19 12/30/16 07:04 BP 99/62 12/30/16 07:04 Pulse Ox 98 12/30/16 07:04 Active Medications: Current Medications Acetaminophen (Tylenol) 650 mg PO Q6HR PRN PRN Reason: Pain (Moderate) Stop: 02/19/17 16:17 Acetaminophen (Tylenol Extra Strength) 500 mg PO Q6HR PRN PRN Reason: Pain (Mild) Stop: 02/19/17 16:17 Bisacodyl (Dulcolax 10 Mg Supp) 10 mg RC HS YIAFN Stop: 02/19/17 20:59 Last Admin: 12/29/16 21:25 Dose: 10 mg Ferrous Sulfate (Iron) 325 mg PO BID YIFAN Stop: 02/19/17 16:59 Last Admin: 12/30/16 09:45 Dose: 325 mg Insulin Aspart (Novolog Insulin Sliding Scale) 0 units SUBQ ACHS YIFAN PRN Reason: Protocol Stop: 02/19/17 17:04 Last Admin: 12/30/16 12:17 Dose: Not Given Lactobacillus Rhamnosus (Culturelle) 1 each PO DAILY YIFAN Stop: 02/21/17 08:59 Last Admin: 12/30/16 09:45 Dose: 1 each Magnesium Hydroxide (Milk Of Magnesia) 30 ml PO DAILY PRN PRN Reason: Constipation Stop: 02/19/17 16:17 Metformin HCl (Glucophage) 500 mg PO BID [facility] Stop: 02/19/17 16:59 Last Admin: 12/30/16 09:45 Dose: 500 mg Miscellaneous (Probiotic Screen) 1 ea MC PRN PRN PRN Reason: PROTOCOL Stop: 02/20/17 14:29 Sodium Phosphate (Fleet Enema) 118 ml RC PRN PRN PRN Reason: Constipation Stop: 02/19/17 16:17 Tramadol HCl (Ultram) 50 mg PO Q6H PRN PRN Reason: Pain (Severe) Stop: 02/19/17 16:17 General: alert HEENT: NC/AT, PERRLA, EOMI, anicteric sclerae, throat clear Neck: Supple, No JVD, No thyromegaly, +2 carotid pulse wo bruit, No LAD, + JVD Lungs: CTAB Cardiovascular: RRR, Normal S1, Normal S2, without murmur Abdomen: soft, non-tender, non-distended Extremities: clear Neurological: no change Internal Medicine Assmt/Plan - Assessment Assessment: 1.QUADRIPRESIS.. 2.DM. 3.ANEMIA. 4.DEPRESSION - Plan Plan: CONTINUE ON CURRENT MEDICATION AND DIET.HE AGREE TO GO TO [facility]. Nutritional Asmnt/Malnutr-PDOC - Dietary Evaluation Malnutrition Findings (Please click <Entered> for more info): Nutritional Asmnt/Malnutrition Start: 12/22/16 16: 48 Text: Status: Complete Freq: Document 12/22/16 16:48 GSUN (Rec: 12/22/16 17:00 GSEMMY [email or web address]) Nutritional Asmnt/Malnutrition Patient General Information Nutritional Screening Consult Diagnosis Reason for visit: refusal of care, UTI, 5150 Pertinent Medical Hx/Surgical Hx Quadriplegia secondary to spinal cord injury, DM Subjective Information 51 year old male from SNF. RD consult for blood glucose. Syriac speaking, little Uzbek. Pt was very pelasant. Visited pt during meal time, observed pt sitting upright in bed able to self feed. Teeth/ dentures intact. Limited physical assessment due to meal time, appeared thin, mild wasting only. Pt stated the food is good, no questions/ concerns at this time. Current Diet Order/ Nutrition Support Regular Pertinent Medications Dulcolax, Iron, Novolog, Culturelle, MOM, Glucophage, Fleet Enema Pertinent Labs A1c 7.2, POc glucose 165-290 since adm Nutritional Hx/Data Height 1.63 m Height (Calculated Centimeters) 162.6 Current Weight (lbs) 55.338 kg Weight (Calculated Kilograms) 55.3 Weight (Calculated Grams) 95793.3 [place] Body Weight 130 Weight Status Approriate GI Symptoms Usual diet at home [place] [facility]: [facility] regular texture, thin liquids Skin Integrity/Comment: Ankur 15. Skin intact. Estimated Nutritional Goals Calories/Kcals/Kg IBW 130lb/59.1kg Kcals Calculated 1478-1773kcal (25-30kcal/kg) Protein Calculated 59g (1g/kg) Fluid: ml 1478-1773ml (1ml/kcal) Nutritional Problem 1. Problem Problem Altered nutrition related laboratory values related to Etiology DM aeb Signs/Symptoms: A1c 7.2, glucose 240 on adm Intervention/Recommendation Comments 1. Recommend [id number] with Boost glucose control QD. 2. Monitor weight. BMI 20.9 with mild wasting noted. Expected Outcomes/Goals Expected Outcomes/Goals 1. PO intake to meet at least 75% of estimated nutritinoal needs.
--- NOTE | 2016-12-31 05:33 | Progress Notes ---
DATE: 12/30/[address] Mar. Case was discussed with staff of the patient, reviewed records. This is a 51-year-old male who was admitted on 12/21/2016 because of feeling paranoid, erratic behavior ____ staff is trying to harm him. The patient was on hold. The patient was verbally aggressive, combative towards the staff, hypersexual, refusing care. Unable to care for himself or make safe plan for self-care. The patient seems to have shown some progress. His mood is improved, more engaged. He was supposed to have been discharged, but this was upheld. The patient has been compliant with the medication with no side effects, no sedation, no nausea, no extrapyramidal symptoms. We will continue to work with the patient in group therapy, milieu therapy, adjust the medication as needed. JOB# [id number]
[2016-12-31] MEDS: INSULIN ASPART SLIDING SCALE 100 UNITS/ML UNIT SUBQ SCH ×4 (06:54→20:44)
[2016-12-31] MEDS: Lactobacillus Rhamnosus 10 Billion CFU Capsule PO SCH (08:55)
[2016-12-31] MEDS: Ferrous Sulfate 325 MG TAB PO SCH ×2 (08:55→17:13)
--- NOTE | 2016-12-31 20:40 | Internal Medicine Prog Note ---
Internal Medicine Subjective - Subjective Service Date: 12/31/16 Patient seen and examined:: with staff (he feels well.) Patient is:: awake, interactive, in bed, talking Per staff patient has:: no adverse event (HE IS TAKING MEDICATION.) Internal Medicine Objective - Results Result Diagrams: 12/21/16 11:35 12/21/16 11:35 Recent Labs: Laboratory Last Values WBC 5.8 Th/cmm (4.8-10.8) 12/21/16 11:35 RBC 4.14 Mil/cmm (4.30-5.70) L 12/21/16 11:35 Hgb 11.6 gm/dL (12-16) L 12/21/16 11:35 Hct 34.8 % (41.0-60) L 12/21/16 11:35 MCV 83.9 fl (80-99) 12/21/16 11:35 MCH 28.0 pg (26.0-30.0) 12/21/16 11:35 MCHC Differential 33.3 pg (28.0-36.0) 12/21/16 11:35 RDW 13.6 % (11.5-20.0) 12/21/16 11:35 Plt Count 321 Th/cmm (150-400) 12/21/16 11:35 MPV 7.0 fl 12/21/16 11:35 Neutrophils % 56.8 % (40.0-80.0) 12/21/16 11:35 Lymphocytes % 25.3 % (20.0-50.0) 12/21/16 11:35 Monocytes % 7.5 % (2.0-10.0) 12/21/16 11:35 Eosinophils % 9.0 % (0.0-5.0) H 12/21/16 11:35 Basophils % 1.4 % (0.0-2.0) 12/21/16 11:35 Sodium 133 mEq/L (136-145) L 12/21/16 11:35 Potassium 3.9 mEq/L (3.5-5.1) 12/21/16 11:35 Chloride 103 mEq/L (98-107) 12/21/16 11:35 Carbon Dioxide 24.4 mEq/L (21.0-31.0) 12/21/16 11:35 Anion Gap 9.5 (7.0-16.0) 12/21/16 11:35 BUN 13 mg/dL (7-25) 12/21/16 11:35 Creatinine 0.7 mg/dL (0.7-1.3) 12/21/16 11:35 Est GFR ( Amer) > 60.0 ml/min (>90) 12/21/16 11:35 Est GFR (Non-Af Amer) > 60.0 ml/min 12/21/16 11:35 BUN/Creatinine Ratio 18.6 12/21/16 11:35 Glucose 240 mg/dL (70-105) H 12/21/16 11:35 POC Glucose 147 MG/DL (70 - 105) H 12/31/16 20:08 Hemoglobin A1c % 7.2 % (4.0-6.0) H 12/21/16 11:25 Calcium 9.3 mg/dL (8.6-10.3) 12/21/16 11:35 Total Bilirubin 0.4 mg/dL (0.3-1.0) 12/21/16 11:35 AST 8 U/L (13-39) L 12/21/16 11:35 ALT 5 U/L (7-52) L 12/21/16 11:35 Alkaline Phosphatase 85 U/L (34-104) 12/21/16 11:35 Total Protein 7.5 gm/dL (6.0-8.3) 12/21/16 11:35 Albumin 3.7 gm/dL (4.2-5.5) L 12/21/16 11:35 Globulin 3.8 gm/dL 12/21/16 11:35 Albumin/Globulin Ratio 1.0 (1.0-1.8) 12/21/16 11:35 Triglycerides 146 mg/dL (<150) 12/21/16 11:35 Cholesterol 153 mg/dL (<200) 12/21/16 11:35 LDL Cholesterol Direct 107 mg/dL (75-193) 12/21/16 11:35 HDL Cholesterol 34 mg/dL (23-92) 12/21/16 11:35 TSH 2.28 uIU/ml (0.34-5.60) 12/21/16 11:35 Urine Source CLEAN C 12/21/16 12:30 Urine Color YELLOW 12/21/16 12:30 Urine Clarity CLOUDY (CLEAR) 12/21/16 12:30 Urine pH 6.0 (4.6 - 8.0) 12/21/16 12:30 Ur Specific [place] <= 1.005 (1.005-1.030) 12/21/16 12:30 Urine Protein NEGATIVE mg/dL (NEGATIVE) 12/21/16 12:30 Urine Glucose (UA) NEGATIVE mg/dL (NEGATIVE) 12/21/16 12:30 Urine Ketones NEGATIVE mg/dL (NEGATIVE) 12/21/16 12:30 Urine Blood LARGE (NEGATIVE) H 12/21/16 12:30 Urine Nitrate POSITIVE (NEGATIVE) H 12/21/16 12:30 Urine Bilirubin NEGATIVE (NEGATIVE) 12/21/16 12:30 Urine Urobilinogen 0.2 E.U./dL (0.2 - 1.0) 12/21/16 12:30 Ur Leukocyte Esterase LARGE (NEGATIVE) H 12/21/16 12:30 Urine RBC 50-100 /hpf (0-5) H 12/21/16 12:30 Urine WBC >100 /hpf (0-5) H 12/21/16 12:30 Ur Epithelial Cells FEW /lpf (FEW) 12/21/16 12:30 Urine Bacteria MANY /hpf (NONE SEEN) 12/21/16 12:30 RPR NONREACTIVE (NONREACTIVE) 12/21/16 11:35 - Physical Exam Vitals and I&O: Vital Signs Temp 97.4 F 12/31/16 14:00 Pulse 83 12/31/16 14:00 Resp 18 12/31/16 14:00 BP 93/59 12/31/16 14:00 Pulse Ox 99 12/31/16 14:00 Intake & Output 12/31/16 12/31/16 01/01/17 06:59 18:59 06:59 Intake Total 120 2200 Balance 120 2200 Intake: Oral 120 2200 Other: # Voids 3 4 # Bowel Movements 0 Active Medications: Current Medications Acetaminophen (Tylenol) 650 mg PO Q6HR PRN PRN Reason: Pain (Moderate) Stop: 02/19/17 16:17 Acetaminophen (Tylenol Extra Strength) 500 mg PO Q6HR PRN PRN Reason: Pain (Mild) Stop: 02/19/17 16:17 Bisacodyl (Dulcolax 10 Mg Supp) 10 mg RC HS YIFAN Stop: 02/19/17 20:59 Last Admin: 12/30/16 21:11 Dose: 10 mg Ferrous Sulfate (Iron) 325 mg PO BID YIFAN Stop: 02/19/17 16:59 Last Admin: 12/31/16 17:13 Dose: 325 mg Insulin Aspart (Novolog Insulin Sliding Scale) 0 units SUBQ ACHS YIFAN PRN Reason: Protocol Stop: 02/19/17 17:04 Last Admin: 12/31/16 17:13 Dose: 2 units Lactobacillus Rhamnosus (Culturelle) 1 each PO DAILY YIFAN Stop: 02/21/17 08:59 Last Admin: 12/31/16 08:55 Dose: 1 each Magnesium Hydroxide (Milk Of Magnesia) 30 ml PO DAILY PRN PRN Reason: Constipation Stop: 02/19/17 16:17 Metformin HCl (Glucophage) 500 mg PO BID [facility] Stop: 02/19/17 16:59 Last Admin: 12/31/16 17:13 Dose: 500 mg Miscellaneous (Probiotic Screen) 1 ea MC PRN PRN PRN Reason: PROTOCOL Stop: 02/20/17 14:29 Sodium Phosphate (Fleet Enema) 118 ml RC PRN PRN PRN Reason: Constipation Stop: 02/19/17 16:17 Tramadol HCl (Ultram) 50 mg PO Q6H PRN PRN Reason: Pain (Severe) Stop: 02/19/17 16:17 General: alert HEENT: NC/AT, PERRLA, EOMI, anicteric sclerae, throat clear Neck: Supple, No JVD, No thyromegaly, +2 carotid pulse wo bruit, No LAD, + JVD Lungs: CTAB Cardiovascular: RRR, Normal S1, Normal S2, without murmur Abdomen: soft, non-tender, non-distended Extremities: clear Neurological: no change Internal Medicine Assmt/Plan - Assessment Assessment: 1.QUADRIPRESIS.. 2.DM. 3.ANEMIA. 4.DEPRESSION - Plan Plan: CONTINUE ON CURRENT MEDICATION AND DIET. Nutritional Asmnt/Malnutr-PDOC - Dietary Evaluation Malnutrition Findings (Please click <Entered> for more info): Nutritional Asmnt/Malnutrition Start: 12/22/16 16: 48 Text: Status: Complete Freq: Document 12/22/16 16:48 GSUN (Rec: 12/22/16 17:00 YVONNE [id number]) Nutritional Asmnt/Malnutrition Patient General Information Nutritional Screening Consult Diagnosis Reason for visit: refusal of care, UTI, 5150 Pertinent Medical Hx/Surgical Hx Quadriplegia secondary to spinal cord injury, DM Subjective Information 51 year old male from SNF. RD consult for blood glucose. Divehi speaking, little [place]. Pt was very pelasant. Visited pt during meal time, observed pt sitting upright in bed able to self feed. Teeth/ dentures intact. Limited physical assessment due to meal time, appeared thin, mild wasting only. Pt stated the food is good, no questions/ concerns at this time. Current Diet Order/ Nutrition Support Regular Pertinent Medications Dulcolax, Iron, Novolog, Culturelle, MOM, Glucophage, Fleet Enema Pertinent Labs A1c 7.2, POc glucose 165-290 since adm Nutritional Hx/Data Height 1.63 m Height (Calculated Centimeters) 162.6 Current Weight (lbs) 55.338 kg Weight (Calculated Kilograms) 55.3 Weight (Calculated Grams) 81377.3 [place] Body Weight 130 Weight Status Approriate GI Symptoms Usual diet at home [facility], thin liquids Skin Integrity/Comment: Ankur 15. Skin intact. Estimated Nutritional Goals Calories/Kcals/Kg IBW 130lb/59.1kg Kcals Calculated 1478-1773kcal (25-30kcal/kg) Protein Calculated 59g (1g/kg) Fluid: ml 1478-1773ml (1ml/kcal) Nutritional Problem 1. Problem Problem Altered nutrition related laboratory values related to Etiology DM aeb Signs/Symptoms: A1c 7.2, glucose 240 on adm Intervention/Recommendation Comments 1. Recommend [id number] with Boost glucose control QD. 2. Monitor weight. BMI 20.9 with mild wasting noted. Expected Outcomes/Goals Expected Outcomes/Goals 1. PO intake to meet at least 75% of estimated nutritinoal needs.
--- NOTE | 2017-01-01 02:20 | Progress Notes ---
DATE: 12/31/2016 Case was discussed with staff of the patient, reviewed records. The patient seems to be cheerful animated today. He has been showing progress. According to the staff, he is sleeping better, eating better. No side effects with the medication, no sedation, no nausea. He has been denying any intent to harm himself or anybody. He denies any side effects with the medication. Working on placement. We will continue to work with the patient in group therapy and milieu therapy, adjust the medication as needed. JOB# [id number]
[2017-01-01] MEDS: INSULIN ASPART SLIDING SCALE 100 UNITS/ML UNIT SUBQ SCH ×4 (06:40→20:35)
[2017-01-01] MEDS: Ferrous Sulfate 325 MG TAB PO SCH ×2 (08:09→16:39)
[2017-01-01] MEDS: Lactobacillus Rhamnosus 10 Billion CFU Capsule PO SCH (08:09)
--- NOTE | 2017-01-01 19:08 | Internal Medicine Prog Note ---
Internal Medicine Subjective - Subjective Service Date: 01/01/17 Patient seen and examined:: without staff (HE FEEL WELL.) Patient is:: awake, interactive, in bed, talking Per staff patient has:: no adverse event (HE IS TAKING MEDICATION.) Internal Medicine Objective - Results Result Diagrams: 12/21/16 11:35 12/21/16 11:35 Recent Labs: Laboratory Last Values WBC 5.8 Th/cmm (4.8-10.8) 12/21/16 11:35 RBC 4.14 Mil/cmm (4.30-5.70) L 12/21/16 11:35 Hgb 11.6 gm/dL (12-16) L 12/21/16 11:35 Hct 34.8 % (41.0-60) L 12/21/16 11:35 MCV 83.9 fl (80-99) 12/21/16 11:35 MCH 28.0 pg (26.0-30.0) 12/21/16 11:35 MCHC Differential 33.3 pg (28.0-36.0) 12/21/16 11:35 RDW 13.6 % (11.5-20.0) 12/21/16 11:35 Plt Count 321 Th/cmm (150-400) 12/21/16 11:35 MPV 7.0 fl 12/21/16 11:35 Neutrophils % 56.8 % (40.0-80.0) 12/21/16 11:35 Lymphocytes % 25.3 % (20.0-50.0) 12/21/16 11:35 Monocytes % 7.5 % (2.0-10.0) 12/21/16 11:35 Eosinophils % 9.0 % (0.0-5.0) H 12/21/16 11:35 Basophils % 1.4 % (0.0-2.0) 12/21/16 11:35 Sodium 133 mEq/L (136-145) L 12/21/16 11:35 Potassium 3.9 mEq/L (3.5-5.1) 12/21/16 11:35 Chloride 103 mEq/L (98-107) 12/21/16 11:35 Carbon Dioxide 24.4 mEq/L (21.0-31.0) 12/21/16 11:35 Anion Gap 9.5 (7.0-16.0) 12/21/16 11:35 BUN 13 mg/dL (7-25) 12/21/16 11:35 Creatinine 0.7 mg/dL (0.7-1.3) 12/21/16 11:35 Est GFR ( Amer) > 60.0 ml/min (>90) 12/21/16 11:35 Est GFR (Non-Af Amer) > 60.0 ml/min 12/21/16 11:35 BUN/Creatinine Ratio 18.6 12/21/16 11:35 Glucose 240 mg/dL (70-105) H 12/21/16 11:35 POC Glucose 134 MG/DL (70 - 105) H 01/01/17 11:59 Hemoglobin A1c % 7.2 % (4.0-6.0) H 12/21/16 11:25 Calcium 9.3 mg/dL (8.6-10.3) 12/21/16 11:35 Total Bilirubin 0.4 mg/dL (0.3-1.0) 12/21/16 11:35 AST 8 U/L (13-39) L 12/21/16 11:35 ALT 5 U/L (7-52) L 12/21/16 11:35 Alkaline Phosphatase 85 U/L (34-104) 12/21/16 11:35 Total Protein 7.5 gm/dL (6.0-8.3) 12/21/16 11:35 Albumin 3.7 gm/dL (4.2-5.5) L 12/21/16 11:35 Globulin 3.8 gm/dL 12/21/16 11:35 Albumin/Globulin Ratio 1.0 (1.0-1.8) 12/21/16 11:35 Triglycerides 146 mg/dL (<150) 12/21/16 11:35 Cholesterol 153 mg/dL (<200) 12/21/16 11:35 LDL Cholesterol Direct 107 mg/dL (75-193) 12/21/16 11:35 HDL Cholesterol 34 mg/dL (23-92) 12/21/16 11:35 TSH 2.28 uIU/ml (0.34-5.60) 12/21/16 11:35 Urine Source CLEAN C 12/21/16 12:30 Urine Color YELLOW 12/21/16 12:30 Urine Clarity CLOUDY (CLEAR) 12/21/16 12:30 Urine pH 6.0 (4.6 - 8.0) 12/21/16 12:30 Ur Specific [place] <= 1.005 (1.005-1.030) 12/21/16 12:30 Urine Protein NEGATIVE mg/dL (NEGATIVE) 12/21/16 12:30 Urine Glucose (UA) NEGATIVE mg/dL (NEGATIVE) 12/21/16 12:30 Urine Ketones NEGATIVE mg/dL (NEGATIVE) 12/21/16 12:30 Urine Blood LARGE (NEGATIVE) H 12/21/16 12:30 Urine Nitrate POSITIVE (NEGATIVE) H 12/21/16 12:30 Urine Bilirubin NEGATIVE (NEGATIVE) 12/21/16 12:30 Urine Urobilinogen 0.2 E.U./dL (0.2 - 1.0) 12/21/16 12:30 Ur Leukocyte Esterase LARGE (NEGATIVE) H 12/21/16 12:30 Urine RBC 50-100 /hpf (0-5) H 12/21/16 12:30 Urine WBC >100 /hpf (0-5) H 12/21/16 12:30 Ur Epithelial Cells FEW /lpf (FEW) 12/21/16 12:30 Urine Bacteria MANY /hpf (NONE SEEN) 12/21/16 12:30 RPR NONREACTIVE (NONREACTIVE) 12/21/16 11:35 - Physical Exam Vitals and I&O: Vital Signs Temp 97.9 F 01/01/17 17:02 Pulse 76 01/01/17 17:02 Resp 18 01/01/17 17:02 BP 198/65 01/01/17 17:02 Pulse Ox 96 01/01/17 17:02 Intake & Output 01/01/17 01/01/17 01/02/17 06:59 18:59 06:59 Intake Total 120 950 Balance 120 950 Intake: Oral 120 950 Other: # Voids 3 4 # Bowel Movements 1 Stool Characteristics Soft Brown Active Medications: Current Medications Acetaminophen (Tylenol) 650 mg PO Q6HR PRN PRN Reason: Pain (Moderate) Stop: 02/19/17 16:17 Acetaminophen (Tylenol Extra Strength) 500 mg PO Q6HR PRN PRN Reason: Pain (Mild) Stop: 02/19/17 16:17 Bisacodyl (Dulcolax 10 Mg Supp) 10 mg RC HS YIFAN Stop: 02/19/17 20:59 Last Admin: 12/31/16 20:45 Dose: 10 mg Ferrous Sulfate (Iron) 325 mg PO BID YIFAN Stop: 02/19/17 16:59 Last Admin: 01/01/17 16:39 Dose: 325 mg Insulin Aspart (Novolog Insulin Sliding Scale) 0 units SUBQ ACHS YIFAN PRN Reason: Protocol Stop: 02/19/17 17:04 Last Admin: 01/01/17 17:27 Dose: Not Given Lactobacillus Rhamnosus (Culturelle) 1 each PO DAILY YIFAN Stop: 02/21/17 08:59 Last Admin: 01/01/17 08:09 Dose: 1 each Magnesium Hydroxide (Milk Of Magnesia) 30 ml PO DAILY PRN PRN Reason: Constipation Stop: 02/19/17 16:17 Metformin HCl (Glucophage) 500 mg PO BID YIFAN Stop: 02/19/17 16:59 Last Admin: 01/01/17 16:39 Dose: 500 mg Miscellaneous (Probiotic Screen) 1 ea MC PRN PRN PRN Reason: PROTOCOL Stop: 02/20/17 14:29 Sodium Phosphate (Fleet Enema) 118 ml RC PRN PRN PRN Reason: Constipation Stop: 02/19/17 16:17 Tramadol HCl (Ultram) 50 mg PO Q6H PRN PRN Reason: Pain (Severe) Stop: 02/19/17 16:17 General: alert HEENT: NC/AT, PERRLA, EOMI, anicteric sclerae, throat clear Neck: Supple, No JVD, No thyromegaly, +2 carotid pulse wo bruit, No LAD, + JVD Lungs: CTAB Cardiovascular: RRR, Normal S1, Normal S2, without murmur Abdomen: soft, non-tender, non-distended Extremities: clear Neurological: no change Internal Medicine Assmt/Plan - Assessment Assessment: 1.QUADRIPRESIS.. 2.DM. 3.ANEMIA. 4.DEPRESSION - Plan Plan: CONTINUE ON CURRENT MEDICATION AND DIET. Nutritional Asmnt/Malnutr-PDOC - Dietary Evaluation Malnutrition Findings (Please click <Entered> for more info): Nutritional Asmnt/Malnutrition Start: 12/22/16 16: 48 Text: Status: Complete Freq: Document 12/22/16 16:48 GSUN (Rec: 12/22/16 17:00 YVONNE [email or web address]) Nutritional Asmnt/Malnutrition Patient General Information Nutritional Screening Consult Diagnosis Reason for visit: refusal of care, UTI, 5150 Pertinent Medical Hx/Surgical Hx Quadriplegia secondary to spinal cord injury, DM Subjective Information 51 year old male from SNF. RD consult for blood glucose. Angolan speaking, little Mongolian. Pt was very pelasant. Visited pt during meal time, observed pt sitting upright in bed able to self feed. Teeth/ dentures intact. Limited physical assessment due to meal time, appeared thin, mild wasting only. Pt stated the food is good, no questions/ concerns at this time. Current Diet Order/ Nutrition Support Regular Pertinent Medications Dulcolax, Iron, Novolog, Culturelle, MOM, Glucophage, Fleet Enema Pertinent Labs A1c 7.2, POc glucose 165-290 since adm Nutritional Hx/Data Height 1.63 m Height (Calculated Centimeters) 162.6 Current Weight (lbs) 55.338 kg Weight (Calculated Kilograms) 55.3 Weight (Calculated Grams) 03861.3 [place] Body Weight 130 Weight Status Approriate GI Symptoms Usual diet at home [place] [facility], thin liquids Skin Integrity/Comment: Ankur 15. Skin intact. Estimated Nutritional Goals Calories/Kcals/Kg IBW 130lb/59.1kg Kcals Calculated 1478-1773kcal (25-30kcal/kg) Protein Calculated 59g (1g/kg) Fluid: ml 1478-1773ml (1ml/kcal) Nutritional Problem 1. Problem Problem Altered nutrition related laboratory values related to Etiology DM aeb Signs/Symptoms: A1c 7.2, glucose 240 on adm Intervention/Recommendation Comments 1. Recommend [id number] with Boost glucose control QD. 2. Monitor weight. BMI 20.9 with mild wasting noted. Expected Outcomes/Goals Expected Outcomes/Goals 1. PO intake to meet at least 75% of estimated nutritinoal needs.
--- NOTE | 2017-01-02 00:26 | Progress Notes ---
DATE: 01/01/2017 SUBJECTIVE: The patient seen, chart reviewed, discussed with staff. The patient seems to be improving, more stable from a psychiatric perspective; however, he needs a place to go. He is currently gravely disabled, cannot care for his basic needs. We are trying to help him with placement. He cannot take care of himself. The patient has been showing progress, sleeping well, eating well, friendly on exam, less isolative. We did find him a place to go last week, but he did not want to go. There have been issues in regards to his placement. ASSESSMENT: The patient is gravely disabled, unable to be cared for at a lesser level of care. His psychotic symptoms seem to be dissipating and his mood is better. PLAN: We will monitor and follow up. Discussed with social work regarding placement. JOB# [id number]
[2017-01-02] MEDS: INSULIN ASPART SLIDING SCALE 100 UNITS/ML UNIT SUBQ SCH ×4 (06:50→21:11)
[2017-01-02] MEDS: Ferrous Sulfate 325 MG TAB PO SCH ×2 (09:44→16:35)
[2017-01-02] MEDS: Lactobacillus Rhamnosus 10 Billion CFU Capsule PO SCH (10:12)
--- NOTE | 2017-01-02 11:57 | Internal Medicine Prog Note ---
Internal Medicine Subjective - Subjective Service Date: 01/02/17 Patient seen and examined:: without staff Patient is:: awake, interactive, in bed, talking Per staff patient has:: no adverse event (HE IS TAKING MEDICATION.) Internal Medicine Objective - Results Result Diagrams: 12/21/16 11:35 12/21/16 11:35 Recent Labs: Laboratory Last Values WBC 5.8 Th/cmm (4.8-10.8) 12/21/16 11:35 RBC 4.14 Mil/cmm (4.30-5.70) L 12/21/16 11:35 Hgb 11.6 gm/dL (12-16) L 12/21/16 11:35 Hct 34.8 % (41.0-60) L 12/21/16 11:35 MCV 83.9 fl (80-99) 12/21/16 11:35 MCH 28.0 pg (26.0-30.0) 12/21/16 11:35 MCHC Differential 33.3 pg (28.0-36.0) 12/21/16 11:35 RDW 13.6 % (11.5-20.0) 12/21/16 11:35 Plt Count 321 Th/cmm (150-400) 12/21/16 11:35 MPV 7.0 fl 12/21/16 11:35 Neutrophils % 56.8 % (40.0-80.0) 12/21/16 11:35 Lymphocytes % 25.3 % (20.0-50.0) 12/21/16 11:35 Monocytes % 7.5 % (2.0-10.0) 12/21/16 11:35 Eosinophils % 9.0 % (0.0-5.0) H 12/21/16 11:35 Basophils % 1.4 % (0.0-2.0) 12/21/16 11:35 Sodium 133 mEq/L (136-145) L 12/21/16 11:35 Potassium 3.9 mEq/L (3.5-5.1) 12/21/16 11:35 Chloride 103 mEq/L (98-107) 12/21/16 11:35 Carbon Dioxide 24.4 mEq/L (21.0-31.0) 12/21/16 11:35 Anion Gap 9.5 (7.0-16.0) 12/21/16 11:35 BUN 13 mg/dL (7-25) 12/21/16 11:35 Creatinine 0.7 mg/dL (0.7-1.3) 12/21/16 11:35 Est GFR ( Amer) > 60.0 ml/min (>90) 12/21/16 11:35 Est GFR (Non-Af Amer) > 60.0 ml/min 12/21/16 11:35 BUN/Creatinine Ratio 18.6 12/21/16 11:35 Glucose 240 mg/dL (70-105) H 12/21/16 11:35 POC Glucose 133 MG/DL (70 - 105) H 01/01/17 20:04 Hemoglobin A1c % 7.2 % (4.0-6.0) H 12/21/16 11:25 Calcium 9.3 mg/dL (8.6-10.3) 12/21/16 11:35 Total Bilirubin 0.4 mg/dL (0.3-1.0) 12/21/16 11:35 AST 8 U/L (13-39) L 12/21/16 11:35 ALT 5 U/L (7-52) L 12/21/16 11:35 Alkaline Phosphatase 85 U/L (34-104) 12/21/16 11:35 Total Protein 7.5 gm/dL (6.0-8.3) 12/21/16 11:35 Albumin 3.7 gm/dL (4.2-5.5) L 12/21/16 11:35 Globulin 3.8 gm/dL 12/21/16 11:35 Albumin/Globulin Ratio 1.0 (1.0-1.8) 12/21/16 11:35 Triglycerides 146 mg/dL (<150) 12/21/16 11:35 Cholesterol 153 mg/dL (<200) 12/21/16 11:35 LDL Cholesterol Direct 107 mg/dL (75-193) 12/21/16 11:35 HDL Cholesterol 34 mg/dL (23-92) 12/21/16 11:35 TSH 2.28 uIU/ml (0.34-5.60) 12/21/16 11:35 Urine Source CLEAN C 12/21/16 12:30 Urine Color YELLOW 12/21/16 12:30 Urine Clarity CLOUDY (CLEAR) 12/21/16 12:30 Urine pH 6.0 (4.6 - 8.0) 12/21/16 12:30 Ur Specific [place] <= 1.005 (1.005-1.030) 12/21/16 12:30 Urine Protein NEGATIVE mg/dL (NEGATIVE) 12/21/16 12:30 Urine Glucose (UA) NEGATIVE mg/dL (NEGATIVE) 12/21/16 12:30 Urine Ketones NEGATIVE mg/dL (NEGATIVE) 12/21/16 12:30 Urine Blood LARGE (NEGATIVE) H 12/21/16 12:30 Urine Nitrate POSITIVE (NEGATIVE) H 12/21/16 12:30 Urine Bilirubin NEGATIVE (NEGATIVE) 12/21/16 12:30 Urine Urobilinogen 0.2 E.U./dL (0.2 - 1.0) 12/21/16 12:30 Ur Leukocyte Esterase LARGE (NEGATIVE) H 12/21/16 12:30 Urine RBC 50-100 /hpf (0-5) H 12/21/16 12:30 Urine WBC >100 /hpf (0-5) H 12/21/16 12:30 Ur Epithelial Cells FEW /lpf (FEW) 12/21/16 12:30 Urine Bacteria MANY /hpf (NONE SEEN) 12/21/16 12:30 RPR NONREACTIVE (NONREACTIVE) 12/21/16 11:35 - Physical Exam Vitals and I&O: Vital Signs Temp 98.4 F 01/02/17 06:02 Pulse 74 01/02/17 06:02 Resp 20 01/02/17 06:02 BP 98/51 01/02/17 06:02 Pulse Ox 98 01/02/17 06:02 Intake & Output 01/01/17 01/02/17 01/02/17 18:59 06:59 18:59 Intake Total 950 300 Output Total 1 Balance 950 299 Intake: Oral 950 300 Output: Stool 1 Other: # Voids 4 2 # Bowel Movements 1 1 Active Medications: Current Medications Acetaminophen (Tylenol) 650 mg PO Q6HR PRN PRN Reason: Pain (Moderate) Stop: 02/19/17 16:17 Acetaminophen (Tylenol Extra Strength) 500 mg PO Q6HR PRN PRN Reason: Pain (Mild) Stop: 02/19/17 16:17 Bisacodyl (Dulcolax 10 Mg Supp) 10 mg RC HS [facility] Stop: 02/19/17 20:59 Last Admin: 01/01/17 21:01 Dose: 10 mg Ferrous Sulfate (Iron) 325 mg PO BID [facility] Stop: 02/19/17 16:59 Last Admin: 01/02/17 09:44 Dose: 325 mg Insulin Aspart (Novolog Insulin Sliding Scale) 0 units SUBQ ACHS YIFAN PRN Reason: Protocol Stop: 02/19/17 17:04 Last Admin: 01/02/17 06:50 Dose: Not Given Lactobacillus Rhamnosus (Culturelle) 1 each PO DAILY [facility] Stop: 02/21/17 08:59 Last Admin: 01/02/17 10:12 Dose: Not Given Magnesium Hydroxide (Milk Of Magnesia) 30 ml PO DAILY PRN PRN Reason: Constipation Stop: 02/19/17 16:17 Metformin HCl (Glucophage) 500 mg PO BID [facility] Stop: 02/19/17 16:59 Last Admin: 01/02/17 09:44 Dose: 500 mg Miscellaneous (Probiotic Screen) 1 ea MC PRN PRN PRN Reason: PROTOCOL Stop: 02/20/17 14:29 Sodium Phosphate (Fleet Enema) 118 ml RC PRN PRN PRN Reason: Constipation Stop: 02/19/17 16:17 Tramadol HCl (Ultram) 50 mg PO Q6H PRN PRN Reason: Pain (Severe) Stop: 02/19/17 16:17 General: alert HEENT: NC/AT, PERRLA, EOMI, anicteric sclerae, throat clear Neck: Supple, No JVD, No thyromegaly, +2 carotid pulse wo bruit, No LAD, + JVD Lungs: CTAB Cardiovascular: RRR, Normal S1, Normal S2, without murmur Abdomen: soft, non-tender, non-distended Extremities: clear Neurological: no change Internal Medicine Assmt/Plan - Assessment Assessment: 1.QUADRIPRESIS.. 2.DM. 3.ANEMIA. 4.DEPRESSION - Plan Plan: CONTINUE ON CURRENT MEDICATION AND DIET. Nutritional Asmnt/Malnutr-PDOC - Dietary Evaluation Malnutrition Findings (Please click <Entered> for more info): Nutritional Asmnt/Malnutrition Start: 12/22/16 16: 48 Text: Status: Complete Freq: Document 12/22/16 16:48 GSUN (Rec: 12/22/16 17:00 GSUN [email or web address]) Nutritional Asmnt/Malnutrition Patient General Information Nutritional Screening Consult Diagnosis Reason for visit: refusal of care, UTI, 5150 Pertinent Medical Hx/Surgical Hx Quadriplegia secondary to spinal cord injury, DM Subjective Information 51 year old male from SNF. RD consult for blood glucose. Macedonian speaking, little Persian. Pt was very pelasant. Visited pt during meal time, observed pt sitting upright in bed able to self feed. Teeth/ dentures intact. Limited physical assessment due to meal time, appeared thin, mild wasting only. Pt stated the food is good, no questions/ concerns at this time. Current Diet Order/ Nutrition Support Regular Pertinent Medications Dulcolax, Iron, Novolog, Culturelle, MOM, Glucophage, Fleet Enema Pertinent Labs A1c 7.2, POc glucose 165-290 since adm Nutritional Hx/Data Height 1.63 m Height (Calculated Centimeters) 162.6 Current Weight (lbs) 55.338 kg Weight (Calculated Kilograms) 55.3 Weight (Calculated Grams) 85650.3 [place] Body Weight 130 Weight Status Approriate GI Symptoms Usual diet at home [place] [facility] texture, thin liquids Skin Integrity/Comment: Ankur 15. Skin intact. Estimated Nutritional Goals Calories/Kcals/Kg IBW 130lb/59.1kg Kcals Calculated 1478-1773kcal (25-30kcal/kg) Protein Calculated 59g (1g/kg) Fluid: ml 1478-1773ml (1ml/kcal) Nutritional Problem 1. Problem Problem Altered nutrition related laboratory values related to Etiology DM aeb Signs/Symptoms: A1c 7.2, glucose 240 on adm Intervention/Recommendation Comments 1. Recommend [id number] with Boost glucose control QD. 2. Monitor weight. BMI 20.9 with mild wasting noted. Expected Outcomes/Goals Expected Outcomes/Goals 1. PO intake to meet at least 75% of estimated nutritinoal needs.
--- NOTE | 2017-01-02 17:02 | Progress Notes ---
DATE: 01/02/2017 SUBJECTIVE: The patient was seen, chart reviewed, discussed with staff. The patient is stable, no SI, no HI. . We are trying to work on placement and he is currently gravely disabled. He cannot care for himself. We are trying to get him into a custodial facility. The patient seems calmer, more cooperative and no paranoia. ASSESSMENT: The patient is stable, currently pending placement, currently gravely disabled. We are waiting on confirmation. JOB# [id number]
[2017-01-03] MEDS: INSULIN ASPART SLIDING SCALE 100 UNITS/ML UNIT SUBQ SCH ×4 (06:32→20:54)
[2017-01-03] MEDS: Lactobacillus Rhamnosus 10 Billion CFU Capsule PO SCH (09:35)
[2017-01-03] MEDS: Ferrous Sulfate 325 MG TAB PO SCH ×2 (09:35→17:33)
--- NOTE | 2017-01-03 19:05 | Progress Notes ---
DATE: 01/03/2017 SUBJECTIVE: The patient was seen, chart reviewed, discussed with staff. The patient is currently in the hospital, symptomatic, gravely disabled, cannot take care of himself. We are trying hard to work on placement at this time. The patient his basic food, clothing, and halfway. No overt paranoia. No SI, no HI. He is calmer. I will try to get in touch with social work in regard to an update on his discharge. He is following treatment plan. He is in touch with family. PLAN: We will continue to monitor, currently working on placement and he is unable to care for his basic needs. JOB# [id number]
--- NOTE | 2017-01-03 22:28 | Internal Medicine Prog Note ---
Internal Medicine Subjective - Subjective Service Date: 01/03/17 Patient seen and examined:: without staff Patient is:: awake, interactive, in bed, talking Per staff patient has:: no adverse event (HE IS TAKING MEDICATION.) Internal Medicine Objective - Results Result Diagrams: 12/21/16 11:35 12/21/16 11:35 Recent Labs: Laboratory Last Values WBC 5.8 Th/cmm (4.8-10.8) 12/21/16 11:35 RBC 4.14 Mil/cmm (4.30-5.70) L 12/21/16 11:35 Hgb 11.6 gm/dL (12-16) L 12/21/16 11:35 Hct 34.8 % (41.0-60) L 12/21/16 11:35 MCV 83.9 fl (80-99) 12/21/16 11:35 MCH 28.0 pg (26.0-30.0) 12/21/16 11:35 MCHC Differential 33.3 pg (28.0-36.0) 12/21/16 11:35 RDW 13.6 % (11.5-20.0) 12/21/16 11:35 Plt Count 321 Th/cmm (150-400) 12/21/16 11:35 MPV 7.0 fl 12/21/16 11:35 Neutrophils % 56.8 % (40.0-80.0) 12/21/16 11:35 Lymphocytes % 25.3 % (20.0-50.0) 12/21/16 11:35 Monocytes % 7.5 % (2.0-10.0) 12/21/16 11:35 Eosinophils % 9.0 % (0.0-5.0) H 12/21/16 11:35 Basophils % 1.4 % (0.0-2.0) 12/21/16 11:35 Sodium 133 mEq/L (136-145) L 12/21/16 11:35 Potassium 3.9 mEq/L (3.5-5.1) 12/21/16 11:35 Chloride 103 mEq/L (98-107) 12/21/16 11:35 Carbon Dioxide 24.4 mEq/L (21.0-31.0) 12/21/16 11:35 Anion Gap 9.5 (7.0-16.0) 12/21/16 11:35 BUN 13 mg/dL (7-25) 12/21/16 11:35 Creatinine 0.7 mg/dL (0.7-1.3) 12/21/16 11:35 Est GFR ( Amer) > 60.0 ml/min (>90) 12/21/16 11:35 Est GFR (Non-Af Amer) > 60.0 ml/min 12/21/16 11:35 BUN/Creatinine Ratio 18.6 12/21/16 11:35 Glucose 240 mg/dL (70-105) H 12/21/16 11:35 POC Glucose 133 MG/DL (70 - 105) H 01/01/17 20:04 Hemoglobin A1c % 7.2 % (4.0-6.0) H 12/21/16 11:25 Calcium 9.3 mg/dL (8.6-10.3) 12/21/16 11:35 Total Bilirubin 0.4 mg/dL (0.3-1.0) 12/21/16 11:35 AST 8 U/L (13-39) L 12/21/16 11:35 ALT 5 U/L (7-52) L 12/21/16 11:35 Alkaline Phosphatase 85 U/L (34-104) 12/21/16 11:35 Total Protein 7.5 gm/dL (6.0-8.3) 12/21/16 11:35 Albumin 3.7 gm/dL (4.2-5.5) L 12/21/16 11:35 Globulin 3.8 gm/dL 12/21/16 11:35 Albumin/Globulin Ratio 1.0 (1.0-1.8) 12/21/16 11:35 Triglycerides 146 mg/dL (<150) 12/21/16 11:35 Cholesterol 153 mg/dL (<200) 12/21/16 11:35 LDL Cholesterol Direct 107 mg/dL (75-193) 12/21/16 11:35 HDL Cholesterol 34 mg/dL (23-92) 12/21/16 11:35 TSH 2.28 uIU/ml (0.34-5.60) 12/21/16 11:35 Urine Source CLEAN C 12/21/16 12:30 Urine Color YELLOW 12/21/16 12:30 Urine Clarity CLOUDY (CLEAR) 12/21/16 12:30 Urine pH 6.0 (4.6 - 8.0) 12/21/16 12:30 Ur Specific [place] <= 1.005 (1.005-1.030) 12/21/16 12:30 Urine Protein NEGATIVE mg/dL (NEGATIVE) 12/21/16 12:30 Urine Glucose (UA) NEGATIVE mg/dL (NEGATIVE) 12/21/16 12:30 Urine Ketones NEGATIVE mg/dL (NEGATIVE) 12/21/16 12:30 Urine Blood LARGE (NEGATIVE) H 12/21/16 12:30 Urine Nitrate POSITIVE (NEGATIVE) H 12/21/16 12:30 Urine Bilirubin NEGATIVE (NEGATIVE) 12/21/16 12:30 Urine Urobilinogen 0.2 E.U./dL (0.2 - 1.0) 12/21/16 12:30 Ur Leukocyte Esterase LARGE (NEGATIVE) H 12/21/16 12:30 Urine RBC 50-100 /hpf (0-5) H 12/21/16 12:30 Urine WBC >100 /hpf (0-5) H 12/21/16 12:30 Ur Epithelial Cells FEW /lpf (FEW) 12/21/16 12:30 Urine Bacteria MANY /hpf (NONE SEEN) 12/21/16 12:30 RPR NONREACTIVE (NONREACTIVE) 12/21/16 11:35 - Physical Exam Vitals and I&O: Vital Signs Temp 98.2 F 01/03/17 22:07 Pulse 65 01/03/17 22:07 Resp 20 01/03/17 22:07 BP 108/67 01/03/17 22:07 Pulse Ox 97 01/03/17 22:07 Intake & Output 01/03/17 01/03/17 01/04/17 06:59 18:59 06:59 Intake Total 1440 1800 Balance 1440 1800 Intake: Oral 1440 1800 Other: # Voids 3 4 # Bowel Movements 0 0 Active Medications: Current Medications Acetaminophen (Tylenol) 650 mg PO Q6HR PRN PRN Reason: Pain (Moderate) Stop: 02/19/17 16:17 Acetaminophen (Tylenol Extra Strength) 500 mg PO Q6HR PRN PRN Reason: Pain (Mild) Stop: 02/19/17 16:17 Bisacodyl (Dulcolax 10 Mg Supp) 10 mg RC HS YIFAN Stop: 02/19/17 20:59 Last Admin: 01/03/17 20:54 Dose: 10 mg Ferrous Sulfate (Iron) 325 mg PO BID YIFAN Stop: 02/19/17 16:59 Last Admin: 01/03/17 17:33 Dose: 325 mg Insulin Aspart (Novolog Insulin Sliding Scale) 0 units SUBQ ACHS YIFAN PRN Reason: Protocol Stop: 02/19/17 17:04 Last Admin: 01/03/17 20:54 Dose: 4 units Lactobacillus Rhamnosus (Culturelle) 1 each PO DAILY YIFAN Stop: 01/06/17 08:59 Last Admin: 01/03/17 09:35 Dose: 1 each Magnesium Hydroxide (Milk Of Magnesia) 30 ml PO DAILY PRN PRN Reason: Constipation Stop: 02/19/17 16:17 Metformin HCl (Glucophage) 500 mg PO BID [facility] Stop: 02/19/17 16:59 Last Admin: 01/03/17 17:33 Dose: 500 mg Miscellaneous (Probiotic Screen) 1 ea MC PRN PRN PRN Reason: PROTOCOL Stop: 02/20/17 14:29 Sodium Phosphate (Fleet Enema) 118 ml RC PRN PRN PRN Reason: Constipation Stop: 02/19/17 16:17 Tramadol HCl (Ultram) 50 mg PO Q6H PRN PRN Reason: Pain (Severe) Stop: 02/19/17 16:17 General: alert HEENT: NC/AT, PERRLA, EOMI, anicteric sclerae, throat clear Neck: Supple, No JVD, No thyromegaly, +2 carotid pulse wo bruit, No LAD, + JVD Lungs: CTAB Cardiovascular: RRR, Normal S1, Normal S2, without murmur Abdomen: soft, non-tender, non-distended Extremities: clear Neurological: no change Internal Medicine Assmt/Plan - Assessment Assessment: 1.QUADRIPRESIS.. 2.DM. 3.ANEMIA. 4.DEPRESSION - Plan Plan: CONTINUE ON CURRENT MEDICATION AND DIET. Nutritional Asmnt/Malnutr-PDOC - Dietary Evaluation Malnutrition Findings (Please click <Entered> for more info): Nutritional Asmnt/Malnutrition Start: 12/22/16 16: 48 Text: Status: Complete Freq: Document 12/22/16 16:48 GSUN (Rec: 12/22/16 17:00 [email or web address] [email or web address]) Nutritional Asmnt/Malnutrition Patient General Information Nutritional Screening Consult Diagnosis Reason for visit: refusal of care, UTI, 5150 Pertinent Medical Hx/Surgical Hx Quadriplegia secondary to spinal cord injury, DM Subjective Information 51 year old male from SNF. RD consult for blood glucose. Azerbaijani speaking, little Azeri. Pt was very pelasant. Visited pt during meal time, observed pt sitting upright in bed able to self feed. Teeth/ dentures intact. Limited physical assessment due to meal time, appeared thin, mild wasting only. Pt stated the food is good, no questions/ concerns at this time. Current Diet Order/ Nutrition Support Regular Pertinent Medications Dulcolax, Iron, Novolog, Culturelle, MOM, Glucophage, Fleet Enema Pertinent Labs A1c 7.2, POc glucose 165-290 since adm Nutritional Hx/Data Height 1.63 m Height (Calculated Centimeters) 162.6 Current Weight (lbs) 55.338 kg Weight (Calculated Kilograms) 55.3 Weight (Calculated Grams) 19143.3 [place] Body Weight 130 Weight Status Approriate GI Symptoms Usual diet at home [place] [facility] regular texture, thin liquids Skin Integrity/Comment: Ankur 15. Skin intact. Estimated Nutritional Goals Calories/Kcals/Kg IBW 130lb/59.1kg Kcals Calculated 1478-1773kcal (25-30kcal/kg) Protein Calculated 59g (1g/kg) Fluid: ml 1478-1773ml (1ml/kcal) Nutritional Problem 1. Problem Problem Altered nutrition related laboratory values related to Etiology DM aeb Signs/Symptoms: A1c 7.2, glucose 240 on adm Intervention/Recommendation Comments 1. Recommend [id number] with Boost glucose control QD. 2. Monitor weight. BMI 20.9 with mild wasting noted. Expected Outcomes/Goals Expected Outcomes/Goals 1. PO intake to meet at least 75% of estimated nutritinoal needs.
[2017-01-04] MEDS: INSULIN ASPART SLIDING SCALE 100 UNITS/ML UNIT SUBQ SCH ×4 (06:49→20:57)
[2017-01-04] MEDS: Lactobacillus Rhamnosus 10 Billion CFU Capsule PO SCH (08:05)
[2017-01-04] MEDS: Ferrous Sulfate 325 MG TAB PO SCH ×2 (08:06→16:09)
--- NOTE | 2017-01-04 19:02 | Internal Medicine Prog Note ---
Internal Medicine Subjective - Subjective Service Date: 01/04/17 Patient seen and examined:: without staff Patient is:: awake, interactive, in bed, talking Per staff patient has:: no adverse event (HE IS TAKING MEDICATION.) Internal Medicine Objective - Results Result Diagrams: 12/21/16 11:35 12/21/16 11:35 Recent Labs: Laboratory Last Values WBC 5.8 Th/cmm (4.8-10.8) 12/21/16 11:35 RBC 4.14 Mil/cmm (4.30-5.70) L 12/21/16 11:35 Hgb 11.6 gm/dL (12-16) L 12/21/16 11:35 Hct 34.8 % (41.0-60) L 12/21/16 11:35 MCV 83.9 fl (80-99) 12/21/16 11:35 MCH 28.0 pg (26.0-30.0) 12/21/16 11:35 MCHC Differential 33.3 pg (28.0-36.0) 12/21/16 11:35 RDW 13.6 % (11.5-20.0) 12/21/16 11:35 Plt Count 321 Th/cmm (150-400) 12/21/16 11:35 MPV 7.0 fl 12/21/16 11:35 Neutrophils % 56.8 % (40.0-80.0) 12/21/16 11:35 Lymphocytes % 25.3 % (20.0-50.0) 12/21/16 11:35 Monocytes % 7.5 % (2.0-10.0) 12/21/16 11:35 Eosinophils % 9.0 % (0.0-5.0) H 12/21/16 11:35 Basophils % 1.4 % (0.0-2.0) 12/21/16 11:35 Sodium 133 mEq/L (136-145) L 12/21/16 11:35 Potassium 3.9 mEq/L (3.5-5.1) 12/21/16 11:35 Chloride 103 mEq/L (98-107) 12/21/16 11:35 Carbon Dioxide 24.4 mEq/L (21.0-31.0) 12/21/16 11:35 Anion Gap 9.5 (7.0-16.0) 12/21/16 11:35 BUN 13 mg/dL (7-25) 12/21/16 11:35 Creatinine 0.7 mg/dL (0.7-1.3) 12/21/16 11:35 Est GFR ( Amer) > 60.0 ml/min (>90) 12/21/16 11:35 Est GFR (Non-Af Amer) > 60.0 ml/min 12/21/16 11:35 BUN/Creatinine Ratio 18.6 12/21/16 11:35 Glucose 240 mg/dL (70-105) H 12/21/16 11:35 POC Glucose 137 MG/DL (70 - 105) H 01/04/17 16:02 Hemoglobin A1c % 7.2 % (4.0-6.0) H 12/21/16 11:25 Calcium 9.3 mg/dL (8.6-10.3) 12/21/16 11:35 Total Bilirubin 0.4 mg/dL (0.3-1.0) 12/21/16 11:35 AST 8 U/L (13-39) L 12/21/16 11:35 ALT 5 U/L (7-52) L 12/21/16 11:35 Alkaline Phosphatase 85 U/L (34-104) 12/21/16 11:35 Total Protein 7.5 gm/dL (6.0-8.3) 12/21/16 11:35 Albumin 3.7 gm/dL (4.2-5.5) L 12/21/16 11:35 Globulin 3.8 gm/dL 12/21/16 11:35 Albumin/Globulin Ratio 1.0 (1.0-1.8) 12/21/16 11:35 Triglycerides 146 mg/dL (<150) 12/21/16 11:35 Cholesterol 153 mg/dL (<200) 12/21/16 11:35 LDL Cholesterol Direct 107 mg/dL (75-193) 12/21/16 11:35 HDL Cholesterol 34 mg/dL (23-92) 12/21/16 11:35 TSH 2.28 uIU/ml (0.34-5.60) 12/21/16 11:35 Urine Source CLEAN C 12/21/16 12:30 Urine Color YELLOW 12/21/16 12:30 Urine Clarity CLOUDY (CLEAR) 12/21/16 12:30 Urine pH 6.0 (4.6 - 8.0) 12/21/16 12:30 Ur Specific [place] <= 1.005 (1.005-1.030) 12/21/16 12:30 Urine Protein NEGATIVE mg/dL (NEGATIVE) 12/21/16 12:30 Urine Glucose (UA) NEGATIVE mg/dL (NEGATIVE) 12/21/16 12:30 Urine Ketones NEGATIVE mg/dL (NEGATIVE) 12/21/16 12:30 Urine Blood LARGE (NEGATIVE) H 12/21/16 12:30 Urine Nitrate POSITIVE (NEGATIVE) H 12/21/16 12:30 Urine Bilirubin NEGATIVE (NEGATIVE) 12/21/16 12:30 Urine Urobilinogen 0.2 E.U./dL (0.2 - 1.0) 12/21/16 12:30 Ur Leukocyte Esterase LARGE (NEGATIVE) H 12/21/16 12:30 Urine RBC 50-100 /hpf (0-5) H 12/21/16 12:30 Urine WBC >100 /hpf (0-5) H 12/21/16 12:30 Ur Epithelial Cells FEW /lpf (FEW) 12/21/16 12:30 Urine Bacteria MANY /hpf (NONE SEEN) 12/21/16 12:30 RPR NONREACTIVE (NONREACTIVE) 12/21/16 11:35 - Physical Exam Vitals and I&O: Vital Signs Temp 98 F 01/04/17 14:00 Pulse 67 01/04/17 14:00 Resp 20 01/04/17 14:00 BP 97/58 01/04/17 14:00 Pulse Ox 97 01/04/17 14:00 Intake & Output 01/04/17 01/04/17 01/05/17 06:59 18:59 06:59 Intake Total 120 2200 Balance 120 2200 Intake: Oral 120 2200 Other: # Voids 3 4 # Bowel Movements 0 Active Medications: Current Medications Acetaminophen (Tylenol) 650 mg PO Q6HR PRN PRN Reason: Pain (Moderate) Stop: 02/19/17 16:17 Acetaminophen (Tylenol Extra Strength) 500 mg PO Q6HR PRN PRN Reason: Pain (Mild) Stop: 02/19/17 16:17 Bisacodyl (Dulcolax 10 Mg Supp) 10 mg RC HS YIFAN Stop: 02/19/17 20:59 Last Admin: 01/03/17 20:54 Dose: 10 mg Ferrous Sulfate (Iron) 325 mg PO BID [facility] Stop: 02/19/17 16:59 Last Admin: 01/04/17 16:09 Dose: 325 mg Insulin Aspart (Novolog Insulin Sliding Scale) 0 units SUBQ ACHS YIFAN PRN Reason: Protocol Stop: 02/19/17 17:04 Last Admin: 01/04/17 16:11 Dose: Not Given Lactobacillus Rhamnosus (Culturelle) 1 each PO DAILY YIFAN Stop: 01/06/17 08:59 Last Admin: 01/04/17 08:05 Dose: 1 each Magnesium Hydroxide (Milk Of Magnesia) 30 ml PO DAILY PRN PRN Reason: Constipation Stop: 02/19/17 16:17 Metformin HCl (Glucophage) 500 mg PO BID [facility] Stop: 02/19/17 16:59 Last Admin: 01/04/17 16:09 Dose: 500 mg Miscellaneous (Probiotic Screen) 1 ea MC PRN PRN PRN Reason: PROTOCOL Stop: 02/20/17 14:29 Sodium Phosphate (Fleet Enema) 118 ml RC PRN PRN PRN Reason: Constipation Stop: 02/19/17 16:17 Tramadol HCl (Ultram) 50 mg PO Q6H PRN PRN Reason: Pain (Severe) Stop: 02/19/17 16:17 General: alert HEENT: NC/AT, PERRLA, EOMI, anicteric sclerae, throat clear Neck: Supple, No JVD, No thyromegaly, +2 carotid pulse wo bruit, No LAD, + JVD Lungs: CTAB Cardiovascular: RRR, Normal S1, Normal S2, without murmur Abdomen: soft, non-tender, non-distended Extremities: clear Neurological: no change Internal Medicine Assmt/Plan - Assessment Assessment: 1.QUADRIPRESIS.. 2.DM. 3.ANEMIA. 4.DEPRESSION - Plan Plan: CONTINUE ON CURRENT MEDICATION AND DIET. Nutritional Asmnt/Malnutr-PDOC - Dietary Evaluation Malnutrition Findings (Please click <Entered> for more info): Nutritional Asmnt/Malnutrition Start: 12/22/16 16: 48 Text: Status: Complete Freq: Document 12/22/16 16:48 GSUN (Rec: 12/22/16 17:00 [email or web address] [email or web address]) Nutritional Asmnt/Malnutrition Patient General Information Nutritional Screening Consult Diagnosis Reason for visit: refusal of care, UTI, 5150 Pertinent Medical Hx/Surgical Hx Quadriplegia secondary to spinal cord injury, DM Subjective Information 51 year old male from SNF. RD consult for blood glucose. Latvian speaking, little Burundian. Pt was very pelasant. Visited pt during meal time, observed pt sitting upright in bed able to self feed. Teeth/ dentures intact. Limited physical assessment due to meal time, appeared thin, mild wasting only. Pt stated the food is good, no questions/ concerns at this time. Current Diet Order/ Nutrition Support Regular Pertinent Medications Dulcolax, Iron, Novolog, Culturelle, MOM, Glucophage, Fleet Enema Pertinent Labs A1c 7.2, POc glucose 165-290 since adm Nutritional Hx/Data Height 1.63 m Height (Calculated Centimeters) 162.6 Current Weight (lbs) 55.338 kg Weight (Calculated Kilograms) 55.3 Weight (Calculated Grams) 91650.3 [place] Body Weight 130 Weight Status Approriate GI Symptoms Usual diet at home [place] Care: [facility] regular texture, thin liquids Skin Integrity/Comment: Ankur 15. Skin intact. Estimated Nutritional Goals Calories/Kcals/Kg IBW 130lb/59.1kg Kcals Calculated 1478-1773kcal (25-30kcal/kg) Protein Calculated 59g (1g/kg) Fluid: ml 1478-1773ml (1ml/kcal) Nutritional Problem 1. Problem Problem Altered nutrition related laboratory values related to Etiology DM aeb Signs/Symptoms: A1c 7.2, glucose 240 on adm Intervention/Recommendation Comments 1. Recommend [id number] with Boost glucose control QD. 2. Monitor weight. BMI 20.9 with mild wasting noted. Expected Outcomes/Goals Expected Outcomes/Goals 1. PO intake to meet at least 75% of estimated nutritinoal needs.
--- NOTE | 2017-01-04 20:52 | Progress Notes ---
DATE: 01/04/2017 SUBJECTIVE: The patient was seen, chart reviewed, and discussed with staff. The patient remains mildly depressed and withdrawn, but notes he is in better spirit. No psychotic symptoms noted. Sleeping well, eating well, getting along well with staff and peers, currently with grave disability. We are trying to work on placement. The patient seems to be in better spirits. Staff noting he has been calm and cooperative. PLAN: We will continue to monitor. We are working hard on placement. We will monitor and follow up. Discussed with staff. JOB# [id number]
[2017-01-05] MEDS: INSULIN ASPART SLIDING SCALE 100 UNITS/ML UNIT SUBQ SCH ×2 (06:32→12:08)
[2017-01-05] MEDS: Ferrous Sulfate 325 MG TAB PO SCH (08:15)
[2017-01-05] MEDS: Lactobacillus Rhamnosus 10 Billion CFU Capsule PO SCH (08:16)
--- NOTE | 2017-01-05 13:35 | Internal Medicine Prog Note ---
Internal Medicine Subjective - Subjective Service Date: 01/05/17 Patient seen and examined:: with staff (HE FEELS WELL.) Patient is:: awake, interactive, in bed, talking Per staff patient has:: no adverse event (HE IS TAKING MEDICATION.) Internal Medicine Objective - Results Result Diagrams: 12/21/16 11:35 12/21/16 11:35 Recent Labs: Laboratory Last Values WBC 5.8 Th/cmm (4.8-10.8) 12/21/16 11:35 RBC 4.14 Mil/cmm (4.30-5.70) L 12/21/16 11:35 Hgb 11.6 gm/dL (12-16) L 12/21/16 11:35 Hct 34.8 % (41.0-60) L 12/21/16 11:35 MCV 83.9 fl (80-99) 12/21/16 11:35 MCH 28.0 pg (26.0-30.0) 12/21/16 11:35 MCHC Differential 33.3 pg (28.0-36.0) 12/21/16 11:35 RDW 13.6 % (11.5-20.0) 12/21/16 11:35 Plt Count 321 Th/cmm (150-400) 12/21/16 11:35 MPV 7.0 fl 12/21/16 11:35 Neutrophils % 56.8 % (40.0-80.0) 12/21/16 11:35 Lymphocytes % 25.3 % (20.0-50.0) 12/21/16 11:35 Monocytes % 7.5 % (2.0-10.0) 12/21/16 11:35 Eosinophils % 9.0 % (0.0-5.0) H 12/21/16 11:35 Basophils % 1.4 % (0.0-2.0) 12/21/16 11:35 Sodium 133 mEq/L (136-145) L 12/21/16 11:35 Potassium 3.9 mEq/L (3.5-5.1) 12/21/16 11:35 Chloride 103 mEq/L (98-107) 12/21/16 11:35 Carbon Dioxide 24.4 mEq/L (21.0-31.0) 12/21/16 11:35 Anion Gap 9.5 (7.0-16.0) 12/21/16 11:35 BUN 13 mg/dL (7-25) 12/21/16 11:35 Creatinine 0.7 mg/dL (0.7-1.3) 12/21/16 11:35 Est GFR ( Amer) > 60.0 ml/min (>90) 12/21/16 11:35 Est GFR (Non-Af Amer) > 60.0 ml/min 12/21/16 11:35 BUN/Creatinine Ratio 18.6 12/21/16 11:35 Glucose 240 mg/dL (70-105) H 12/21/16 11:35 POC Glucose 154 MG/DL (70 - 105) H 01/04/17 20:10 Hemoglobin A1c % 7.2 % (4.0-6.0) H 12/21/16 11:25 Calcium 9.3 mg/dL (8.6-10.3) 12/21/16 11:35 Total Bilirubin 0.4 mg/dL (0.3-1.0) 12/21/16 11:35 AST 8 U/L (13-39) L 12/21/16 11:35 ALT 5 U/L (7-52) L 12/21/16 11:35 Alkaline Phosphatase 85 U/L (34-104) 12/21/16 11:35 Total Protein 7.5 gm/dL (6.0-8.3) 12/21/16 11:35 Albumin 3.7 gm/dL (4.2-5.5) L 12/21/16 11:35 Globulin 3.8 gm/dL 12/21/16 11:35 Albumin/Globulin Ratio 1.0 (1.0-1.8) 12/21/16 11:35 Triglycerides 146 mg/dL (<150) 12/21/16 11:35 Cholesterol 153 mg/dL (<200) 12/21/16 11:35 LDL Cholesterol Direct 107 mg/dL (75-193) 12/21/16 11:35 HDL Cholesterol 34 mg/dL (23-92) 12/21/16 11:35 TSH 2.28 uIU/ml (0.34-5.60) 12/21/16 11:35 Urine Source CLEAN C 12/21/16 12:30 Urine Color YELLOW 12/21/16 12:30 Urine Clarity CLOUDY (CLEAR) 12/21/16 12:30 Urine pH 6.0 (4.6 - 8.0) 12/21/16 12:30 Ur Specific [place] <= 1.005 (1.005-1.030) 12/21/16 12:30 Urine Protein NEGATIVE mg/dL (NEGATIVE) 12/21/16 12:30 Urine Glucose (UA) NEGATIVE mg/dL (NEGATIVE) 12/21/16 12:30 Urine Ketones NEGATIVE mg/dL (NEGATIVE) 12/21/16 12:30 Urine Blood LARGE (NEGATIVE) H 12/21/16 12:30 Urine Nitrate POSITIVE (NEGATIVE) H 12/21/16 12:30 Urine Bilirubin NEGATIVE (NEGATIVE) 12/21/16 12:30 Urine Urobilinogen 0.2 E.U./dL (0.2 - 1.0) 12/21/16 12:30 Ur Leukocyte Esterase LARGE (NEGATIVE) H 12/21/16 12:30 Urine RBC 50-100 /hpf (0-5) H 12/21/16 12:30 Urine WBC >100 /hpf (0-5) H 12/21/16 12:30 Ur Epithelial Cells FEW /lpf (FEW) 12/21/16 12:30 Urine Bacteria MANY /hpf (NONE SEEN) 12/21/16 12:30 RPR NONREACTIVE (NONREACTIVE) 12/21/16 11:35 - Physical Exam Vitals and I&O: Vital Signs Temp 97.8 F 01/05/17 06:35 Pulse 79 01/05/17 06:35 Resp 20 01/05/17 06:35 BP 102/67 01/05/17 06:35 Pulse Ox 99 01/05/17 06:35 Intake & Output 01/04/17 01/05/17 01/05/17 18:59 06:59 18:59 Intake Total 2200 120 Balance 2200 120 Intake: Oral 2200 120 Other: # Voids 4 3 # Bowel Movements 0 Active Medications: Current Medications Acetaminophen (Tylenol) 650 mg PO Q6HR PRN PRN Reason: Pain (Moderate) Stop: 02/19/17 16:17 Acetaminophen (Tylenol Extra Strength) 500 mg PO Q6HR PRN PRN Reason: Pain (Mild) Stop: 02/19/17 16:17 Bisacodyl (Dulcolax 10 Mg Supp) 10 mg RC HS YIFAN Stop: 02/19/17 20:59 Last Admin: 01/04/17 20:57 Dose: 10 mg Ferrous Sulfate (Iron) 325 mg PO BID YIFAN Stop: 02/19/17 16:59 Last Admin: 01/05/17 08:15 Dose: 325 mg Insulin Aspart (Novolog Insulin Sliding Scale) 0 units SUBQ ACHS YIFAN PRN Reason: Protocol Stop: 02/19/17 17:04 Last Admin: 01/05/17 12:08 Dose: 2 units Lactobacillus Rhamnosus (Culturelle) 1 each PO DAILY YIFAN Stop: 01/06/17 08:59 Last Admin: 01/05/17 08:16 Dose: 1 each Magnesium Hydroxide (Milk Of Magnesia) 30 ml PO DAILY PRN PRN Reason: Constipation Stop: 02/19/17 16:17 Metformin HCl (Glucophage) 500 mg PO BID [facility] Stop: 02/19/17 16:59 Last Admin: 01/05/17 08:14 Dose: 500 mg Miscellaneous (Probiotic Screen) 1 ea MC PRN PRN PRN Reason: PROTOCOL Stop: 02/20/17 14:29 Sodium Phosphate (Fleet Enema) 118 ml RC PRN PRN PRN Reason: Constipation Stop: 02/19/17 16:17 Tramadol HCl (Ultram) 50 mg PO Q6H PRN PRN Reason: Pain (Severe) Stop: 02/19/17 16:17 General: alert HEENT: NC/AT, PERRLA, EOMI, anicteric sclerae, throat clear Neck: Supple, No JVD, No thyromegaly, +2 carotid pulse wo bruit, No LAD, + JVD Lungs: CTAB Cardiovascular: RRR, Normal S1, Normal S2, without murmur Abdomen: soft, non-tender, non-distended Extremities: clear Neurological: no change Internal Medicine Assmt/Plan - Assessment Assessment: 1.QUADRIPRESIS.. 2.DM. 3.ANEMIA. 4.DEPRESSION - Plan Plan: CONTINUE ON CURRENT MEDICATION AND DIET. Nutritional Asmnt/Malnutr-PDOC - Dietary Evaluation Malnutrition Findings (Please click <Entered> for more info): Nutritional Asmnt/Malnutrition Start: 12/22/16 16: 48 Text: Status: Complete Freq: Document 12/22/16 16:48 GSUN (Rec: 12/22/16 17:00 [email or web address] [email or web address]) Nutritional Asmnt/Malnutrition Patient General Information Nutritional Screening Consult Diagnosis Reason for visit: refusal of care, UTI, 5150 Pertinent Medical Hx/Surgical Hx Quadriplegia secondary to spinal cord injury, DM Subjective Information 51 year old male from SNF. RD consult for blood glucose. Telugu speaking, little Upper Sorbian. Pt was very pelasant. Visited pt during meal time, observed pt sitting upright in bed able to self feed. Teeth/ dentures intact. Limited physical assessment due to meal time, appeared thin, mild wasting only. Pt stated the food is good, no questions/ concerns at this time. Current Diet Order/ Nutrition Support Regular Pertinent Medications Dulcolax, Iron, Novolog, Culturelle, MOM, Glucophage, Fleet Enema Pertinent Labs A1c 7.2, POc glucose 165-290 since adm Nutritional Hx/Data Height 1.63 m Height (Calculated Centimeters) 162.6 Current Weight (lbs) 55.338 kg Weight (Calculated Kilograms) 55.3 Weight (Calculated Grams) 49756.3 [place] Body Weight 130 Weight Status Approriate GI Symptoms Usual diet at home [place] [facility], thin liquids Skin Integrity/Comment: Ankur 15. Skin intact. Estimated Nutritional Goals Calories/Kcals/Kg IBW 130lb/59.1kg Kcals Calculated 1478-1773kcal (25-30kcal/kg) Protein Calculated 59g (1g/kg) Fluid: ml 1478-1773ml (1ml/kcal) Nutritional Problem 1. Problem Problem Altered nutrition related laboratory values related to Etiology DM aeb Signs/Symptoms: A1c 7.2, glucose 240 on adm Intervention/Recommendation Comments 1. Recommend [id number] with Boost glucose control QD. 2. Monitor weight. BMI 20.9 with mild wasting noted. Expected Outcomes/Goals Expected Outcomes/Goals 1. PO intake to meet at least 75% of estimated nutritinoal needs.
--- NOTE | 2017-01-05 23:48 | Progress Notes ---
DATE: 01/05/2017 SUBJECTIVE: The patient was seen, chart reviewed, and discussed with staff. Currently, calm and cooperative, linear and engaged. No SI, no HI, no intent, and no plan. No psychotic symptoms. No paranoia. Agreeable to placement. Happy with care. PLAN: We will discharge today on inpatient criteria. Placement has been confirmed. JOB# [id number]
== END 2017-01-05 13:30 | DRG 885 ==
LOC: ER 11:11 → GERO 14:22
PROVIDERS: ADMIT Psychiatry & Neurology Psychiatry; ATTEND Psychiatry & Neurology Psychiatry
DX: F29 Unspecified psychosis not due to a substance or known physiological condition (principal); R53.2 Functional quadriplegia; F39 Unspecified mood [affective] disorder; E11.9 Type 2 diabetes mellitus without complications; F41.9 Anxiety disorder, unspecified; N39.0 Urinary tract infection, site not specified; D64.9 Anemia, unspecified; Z88.0 Allergy status to penicillin; Z83.3 Family history of diabetes mellitus; Z82.49 Family history of ischemic heart disease and other diseases of the circulatory system
CPT/HCPCS: 36415-UA; 80053-TC; 80061-TC; 81001-TC; 82948-90; 83036-90; 84443-TC; 85025-TC; 86592-TC; 87086-90; 93005; J0696; J1815; Z7610

== ENCOUNTER 2018-04-15 16:52 | Inpatient (IN) | payer MEDICARE, OTHER ==
--- NOTE | 2018-04-15 17:11 | ED Physician Chart ---
ED Chief Complaint/HPI - Patient Information Date Seen:: 04/15/18 Time Seen:: 17:06 Chief Complaint:: urinaryl tract infection and psychosis History of Present Illness:: this is a chronically ill 51 yo male [facility] for an evaluation and treatment of a urinary tract infection. he is a functional quadriplegic. this was also sent here for a geropsych evaluation. he was here for major depression in the past. Allergies:: Allergies Allergy/AdvReac Type Severity Reaction Status Date / Time Penicillins [PCN] Allergy HIVES Verified 12/21/16 19:24 Historian:: Medical Records Review:: Nurse's Note Reviewed, Old Chart Reviewed, Transfer documents Reviewed ED Review of Systems - Review of Systems General/Constitutional: No fever, No chills, No weight loss, No weakness, No diaphoresis, No edema, No loss of appetite, Other (this patient cannot give a review of systems) Skin: No skin lesions, No rash, No bruising Head: No headache, No light-headedness Eyes: No loss of vision, No pain, No diplopia ENT: No earache, No nasal drainage, No sore throat, No tinnitus Neck: No neck pain, No swelling, No thyromegaly, No stiffness, No mass noted Cardio Vascular: No chest pain, No palpitations, No PND, No orthopnea, No edema Pulmonary: No SOB, No cough, No sputum, No wheezing GI: No nausea, No vomiting, No diarrhea, No pain, No melena, No hematochezia, No constipation, No hematemesis G/U: No dysuria, No frequency, No hematuria Musculoskeletal: No bone or joint pain, No back pain, No muscle pain Endocrine: No polyuria, No polydipsia Psychiatric: No prior psych history, No depression, No anxiety, No suicidal ideation Hematopoietic: No bruising, No lymphadenopathy Allergic/Immuno: No urticaria, No angioedema Neurological: No syncope, No focal symptoms, No weakness, No paresthesia, No headache, No seizure, No dizziness, No confusion, No vertigo ED Past Medical History - Past Medical History Obtainable: Yes Past Medical History: DM, Dementia, Other (spinal cord injury) Family History: None Social History: Non Smoker, No Alcohol, No Drug Use, Care Facility Surgical History: None Psychiatricy History: Depression Medication: Reviewed Family Medical History - Family Member Mother History Unknown: Yes Ethnicity: Living Status: Still Living Hx Family Coronary Artery Disease: Yes Hx Family Diabetes: Yes ED Physical Exam - Physical Examination General/Constitutional: Awake, Well-developed, well-nourished, Alert, No distress, GCS 15, Non-toxic appearing, Ambulatory Other Gen/Cons comments:: non verbal Head: Atraumatic Eyes: Lids, conjuctiva normal, PERRL, EOMI Skin: Nl inspection, No rash, No skin lesions, No ecchymosis, Well hydrated, No lymphadenopathy ENMT: External ears, nose nl, Nasal exam nl, Lips, teeth, gums nl Neck: Nontender, Full ROM w/o pain, No JVD, No nuchal rigidity, No bruit, No mass, No stridor Respiratory: Nl effort/Exclusion, Clear to Auscultation, No Wheeze/Rhonchi/Rales Cardio Vascular: RRR, No murmur, gallop, rubs, NL S1 S2 GI: No tenderness/rebounding/guarding, No organomegaly, No hernia, Normal BS's, Nondistended, No mass/bruits, No McBurney tenderness : No CVA tenderness Extremities: No tenderness or effusion, Full ROM, normal strength in all extremities, No edema, Normal digits & nails Neuro/Psych: Alert/oriented, DTR's symmetric, Normal sensory exam, Normal motor strength, Judgement/insight normal, Mood normal (depressed), Normal gait, No focal deficits Misc: Normal back, No paraspinal tenderness ED Labs/Radiology/EKG Results - Lab Results Results: Abnormal Lab Results 04/15/18 04/15/18 04/15/18 17:15 17:15 17:15 WBC 6.7 RBC 4.37 Hgb 12.5 Hct 38.0 L MCV 86.9 MCH 28.6 MCHC Differential 32.9 RDW 12.9 Plt Count 283 MPV 6.9 Neutrophils % 53.6 Lymphocytes % 28.4 Monocytes % 9.6 Eosinophils % 7.6 H Basophils % 0.8 PT 9.5 INR 0.91 Sodium 136 Potassium 3.8 Chloride 102 Carbon Dioxide 24.9 Anion Gap 12.9 BUN 16 Creatinine 0.7 Est GFR ( Amer) > 60.0 Est GFR (Non-Af Amer) > 60.0 BUN/Creatinine Ratio 22.9 Glucose 160 H Calcium 9.5 Total Bilirubin 0.3 AST 8 L ALT 6 L Alkaline Phosphatase 86 Total Protein 7.8 Albumin 3.9 L Globulin 3.9 Albumin/Globulin Ratio 1.0 - EKG Interpretations EKG Time:: 17:08 Rate & Rhythm: rate= 68, sinus Maria Stein: right axis ED Assessment - Assessment General Assessment: urt depression ED Septic Shock - . Is Septic Shock (SBP<90, OR Lactate>4 mmol\L) present?: No ED Reassessment (Disposition) - Diagnosis Diagnosis:: depression - Patient Disposition Discharge/Transfer:: Acute Care w/in this hosp Transport Method:: BLS Admitting Medical Physician:: Nabil Olson Admitting Psych Physician:: Anup Bergman Condition at Disposition:: Unchanged
[2018-04-15 17:27] LABS: % BASOPHILS 0.8 % (0.0-2.0); % EOSINOPHILS 7.6 % (0.0-5.0); % LYMPHOCYTES 28.4 % (20.0-50.0); % MONOCYTES 9.6 % (2.0-10.0); % NEUTROPHILS 53.6 % (40.0-80.0); BASOPHILE ABSOLUTE 0.1 Th/cumm (0-0.2); EOSINOPHILE ABSOLUTE 0.5 Th/cmm (0.1-0.4); HEMOGLOBIN 12.5 gm/dL (12-16); LYMPHOCYTE ABSOLUTE 1.9 Th/cmm (1.5-3.0); MEAN CELL VOLUME 86.9 fl (80-99); MEAN CORPUSCULAR HEMOGLOBIN 28.6 pg (26.0-30.0); MEAN CORPUSCULAR HGB CONC 32.9 pg (28.0-36.0); MEAN PLATELET VOLUME 6.9 fl; MONOCYTE ABSOLUTE 0.6 Th/cmm (0.3-1.0); NEUTROPHILE ABSOLUTE 3.6 Th/cmm (1.8-8.0); PLATELET COUNT 283 Th/cmm (150-400); RED BLOOD COUNT 4.37 Mil/cmm (4.30-5.70); RED CELL DISTRIBUTION WIDTH 12.9 % (11.5-20.0); WHITE BLOOD COUNT 6.7 Th/cmm (4.8-10.8)
[2018-04-15 17:38] LABS: INR 0.91 (0.5-1.4); PROTHROMBIN TIME (TEST) 9.5 SECONDS (9.5-11.5)
[2018-04-15 17:42] LABS: ALBUMIN 3.9 gm/dL (4.2-5.5); ALKALINE PHOSPHATASE 86 U/L (34-104); ANION GAP 12.9 (7.0-16.0); BILIRUBIN,TOTAL 0.3 mg/dL (0.3-1.0); BUN - UREA NITROGEN 16 mg/dL (7-25); CALCIUM SERUM 9.5 mg/dL (8.6-10.3); CARBON DIOXIDE 24.9 mEq/L (21.0-31.0); CHLORIDE 102 mEq/L (98-107); CREATININE - SERUM 0.7 mg/dL (0.7-1.3); GFR AFRICAN-AMERICAN > 60.0 ml/min (>90); GFR NON AFRICAN-AMERICAN > 60.0 ml/min; GLUCOSE 160 mg/dL (70-105); POTASSIUM SERUM 3.8 mEq/L (3.5-5.1); SGOT 8 U/L (13-39); SGPT/ALT 6 U/L (7-52); SODIUM SERUM 136 mEq/L (136-145); TOTAL PROTEIN,SERUM 7.8 gm/dL (6.0-8.3)
[2018-04-15] MEDS ORDERED: Magnesium Hydroxide (MOM) 30 mL UDC PO PRN (19:58)
[2018-04-15 20:11] VITALS: BP 124/71
[2018-04-15 20:56] LABS: CHOLESTEROL 162 mg/dL (<200); HDL -HIGH DENSITY LIPOPROTEIN 37 mg/dL (23-92); TRIGLYCERIDES 164 mg/dL (<150)
[2018-04-15] MEDS: INSULIN ASPART SLIDING SCALE 100 UNITS/ML UNIT SUBQ SCH (21:16)
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
[2018-04-16 01:33] LABS: URINE SOURCE CLEAN C
[2018-04-16 02:13] LABS: URINE BILIRUBIN NEGATIVE (NEGATIVE); URINE BLOOD MODERATE (NEGATIVE); URINE GLUCOSE (UA) NEGATIVE (NEGATIVE); URINE KETONE 15 mg/dL (NEGATIVE); URINE LEUKOCYTE ESTERASE LARGE (NEGATIVE); URINE MICROSCOPIC INDICATED? YES; URINE NITRATE NEGATIVE (NEGATIVE); URINE PROTEIN NEGATIVE (NEGATIVE); URINE UROBILINOGEN 0.2 E.U./dL (0.2 - 1.0)
[2018-04-16 02:33] LABS: URINE CLARITY HAZY (CLEAR); URINE COLOR YELLOW
[2018-04-16 02:35] LABS: URINE BACTERIA MANY /hpf (NONE SEEN); URINE EPITHELIAL CELLS NONE SEEN /lpf (FEW); URINE WBC 25-50 /hpf (0-5)
[2018-04-16] MEDS: INSULIN ASPART SLIDING SCALE 100 UNITS/ML UNIT SUBQ SCH ×4 (06:45→20:25)
[2018-04-16] MEDS ORDERED: CRANBERRY FRUIT EXTRACT 425 MG PO SCH (09:00)
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
[2018-04-16] MEDS: Multivitamin Tab PO SCH (09:49)
[2018-04-16] MEDS: Ferrous Sulfate 325 MG TAB PO SCH ×2 (09:49→17:21)
[2018-04-16] MEDS: Sulfamethoxazole/TMP 800/160mg Tab PO SCH ×2 (09:49→17:21)
--- NOTE | 2018-04-16 21:35 | Internal Medicine Prog Note ---
Internal Medicine Subjective - Subjective Service Date: 04/16/18 Patient seen and examined:: with staff Patient is:: awake, verbal, in bed, talking Per staff patient has:: no adverse event Internal Medicine Objective - Results Result Diagrams: 04/15/18 17:15 04/15/18 17:15 Recent Labs: Laboratory Last Values WBC 6.7 Th/cmm (4.8-10.8) 04/15/18 17:15 RBC 4.37 Mil/cmm (4.30-5.70) 04/15/18 17:15 Hgb 12.5 gm/dL (12-16) 04/15/18 17:15 Hct 38.0 % (41.0-60) L 04/15/18 17:15 MCV 86.9 fl (80-99) 04/15/18 17:15 MCH 28.6 pg (26.0-30.0) 04/15/18 17:15 MCHC Differential 32.9 pg (28.0-36.0) 04/15/18 17:15 RDW 12.9 % (11.5-20.0) 04/15/18 17:15 Plt Count 283 Th/cmm (150-400) 04/15/18 17:15 MPV 6.9 fl 04/15/18 17:15 Neutrophils % 53.6 % (40.0-80.0) 04/15/18 17:15 Lymphocytes % 28.4 % (20.0-50.0) 04/15/18 17:15 Monocytes % 9.6 % (2.0-10.0) 04/15/18 17:15 Eosinophils % 7.6 % (0.0-5.0) H 04/15/18 17:15 Basophils % 0.8 % (0.0-2.0) 04/15/18 17:15 PT 9.5 SECONDS (9.5-11.5) 04/15/18 17:15 INR 0.91 (0.5-1.4) 04/15/18 17:15 Sodium 136 mEq/L (136-145) 04/15/18 17:15 Potassium 3.8 mEq/L (3.5-5.1) 04/15/18 17:15 Chloride 102 mEq/L (98-107) 04/15/18 17:15 Carbon Dioxide 24.9 mEq/L (21.0-31.0) 04/15/18 17:15 Anion Gap 12.9 (7.0-16.0) 04/15/18 17:15 BUN 16 mg/dL (7-25) 04/15/18 17:15 Creatinine 0.7 mg/dL (0.7-1.3) 04/15/18 17:15 Est GFR ( Amer) > 60.0 ml/min (>90) 04/15/18 17:15 Est GFR (Non-Af Amer) > 60.0 ml/min 04/15/18 17:15 BUN/Creatinine Ratio 22.9 04/15/18 17:15 Glucose 160 mg/dL (70-105) H 04/15/18 17:15 POC Glucose 165 MG/DL (70 - 105) H 04/16/18 16:28 Calcium 9.5 mg/dL (8.6-10.3) 04/15/18 17:15 Total Bilirubin 0.3 mg/dL (0.3-1.0) 04/15/18 17:15 AST 8 U/L (13-39) L 04/15/18 17:15 ALT 6 U/L (7-52) L 04/15/18 17:15 Alkaline Phosphatase 86 U/L (34-104) 04/15/18 17:15 Total Protein 7.8 gm/dL (6.0-8.3) 04/15/18 17:15 Albumin 3.9 gm/dL (4.2-5.5) L 04/15/18 17:15 Globulin 3.9 gm/dL 04/15/18 17:15 Albumin/Globulin Ratio 1.0 (1.0-1.8) 04/15/18 17:15 Triglycerides 164 mg/dL (<150) H 04/15/18 17:15 Cholesterol 162 mg/dL (<200) 04/15/18 17:15 LDL Cholesterol Direct 109 mg/dL (75-193) 04/15/18 17:15 HDL Cholesterol 37 mg/dL (23-92) 04/15/18 17:15 TSH 2.72 uIU/ml (0.34-5.60) 04/15/18 17:15 Urine Source CLEAN C 04/15/18 01:31 Urine Color YELLOW 04/15/18 01:31 Urine Clarity HAZY (CLEAR) 04/15/18 01:31 Urine pH 6.0 (4.6 - 8.0) 04/15/18 01:31 Ur Specific [place] 1.010 (1.005-1.030) 04/15/18 01:31 Urine Protein NEGATIVE mg/dL (NEGATIVE) 04/15/18 01:31 Urine Glucose (UA) NEGATIVE mg/dL (NEGATIVE) 04/15/18 01:31 Urine Ketones 15 mg/dL (NEGATIVE) H 04/15/18 01:31 Urine Blood MODERATE (NEGATIVE) H 04/15/18 01:31 Urine Nitrate NEGATIVE (NEGATIVE) 04/15/18 01:31 Urine Bilirubin NEGATIVE (NEGATIVE) 04/15/18 01:31 Urine Urobilinogen 0.2 E.U./dL (0.2 - 1.0) 04/15/18 01:31 Ur Leukocyte Esterase LARGE (NEGATIVE) H 04/15/18 01:31 Urine RBC 2-5 /hpf (0-5) H 04/15/18 01:31 Urine WBC 25-50 /hpf (0-5) H 04/15/18 01:31 Ur Epithelial Cells NONE SEEN /lpf (FEW) 04/15/18 01:31 Urine Bacteria MANY /hpf (NONE SEEN) H 04/15/18 01:31 - Physical Exam Vitals and I&O: Vital Signs Temp 97.7 F 04/16/18 19:42 Pulse 75 04/16/18 19:42 Resp 18 04/16/18 19:42 BP 124/78 04/16/18 19:42 Pulse Ox 98 04/16/18 19:42 Intake & Output 04/16/18 04/16/18 04/17/18 06:59 18:59 06:59 Intake Total 240 Balance 240 Intake: Oral 240 Other: # Voids 3 2 Active Medications: Current Medications Acetaminophen (Tylenol) 650 mg PO Q6HR PRN PRN Reason: Pain (Moderate) LEVEL 4-6 Stop: 06/14/18 19:57 Aripiprazole (Abilify) 5 mg PO DAILY YIFAN; Protocol Stop: 06/15/18 08:59 Last Admin: 04/16/18 09:54 Dose: Not Given Docusate Sodium (Colace) 250 mg PO DAILY [facility] Stop: 06/15/18 08:59 Last Admin: 04/16/18 09:49 Dose: 250 mg Ferrous Sulfate (Iron) 325 mg PO BID [facility] Stop: 06/15/18 08:59 Last Admin: 04/16/18 17:21 Dose: 325 mg Insulin Aspart (Novolog Insulin Sliding Scale) 0 units SUBQ ACHS YIFAN; Protocol Stop: 06/14/18 20:59 Last Admin: 04/16/18 20:25 Dose: 3 units Lorazepam (Ativan) 0.5 mg PO Q4H PRN; Protocol PRN Reason: Anxiety Stop: 06/14/18 20:15 Magnesium Hydroxide (Milk Of Magnesia) 30 ml PO HS PRN PRN Reason: Constipation Stop: 06/14/18 19:57 Metformin HCl (Glucophage) 500 mg PO BID [facility] Stop: 06/15/18 08:59 Last Admin: 04/16/18 17:21 Dose: 500 mg Multivitamins/Vitamin C (Theragran) 1 tab PO DAILY [facility] Stop: 06/15/18 08:59 Last Admin: 04/16/18 09:49 Dose: 1 tab Trimethoprim/Sulfamethoxazole (Bactrim Ds) 1 tab PO BID [facility] Stop: 06/15/18 08:59 Last Admin: 04/16/18 17:21 Dose: 1 tab Zolpidem Tartrate (Ambien) 5 mg PO HS PRN PRN Reason: Insomnia General: alert HEENT: NC/AT, PERRLA, EOMI, anicteric sclerae, throat clear Neck: Supple, No JVD, No thyromegaly, +2 carotid pulse wo bruit, No LAD Lungs: CTAB Cardiovascular: RRR, Normal S1, Normal S2, without murmur Abdomen: soft, non-tender, non-distended Extremities: clear Neurological: no change Internal Medicine Assmt/Plan - Assessment Assessment: 1.UTI 2.DM. 3.QUADRIPARESIS. 4.PSYCHSIS. - Plan Plan: CONTINUE ON CURRENT MEDICATION AND DIET.
--- NOTE | 2018-04-17 01:22 | Psychiatric Evaluation ---
DATE OF SERVICE: INITIAL EVALUATION AND MENTAL STATUS EXAM PATIENT AGE: 52. SEX: Male. PHYSICIAN: Dr. Bergman. CHIEF COMPLAINT: Agitation and irritability. HISTORY OF PRESENT ILLNESS: The patient is a 52-year-old male, who was admitted to the hospital from [facility] because of increased confusion and agitation and the patient also was depressed. HOSPITAL COURSE: The patient continues to be agitated and in a depressed mood. The patient has quadriplegia, which makes him severely depressed and that was a result of a spinal cord injury. The patient also is diabetic and also has been depressed because of his medical condition in general. PAST PSYCHIATRIC HISTORY: The patient has history of depression and ineffective coping. PAST MEDICAL HISTORY: The patient has diabetes mellitus as well as the patient is quadriplegic secondary to a spinal cord injury. MENTAL STATUS EXAMINATION: The patient appears his stated age. Anxious. Irritable mood. Flat affect. Thought processes mainly goal directed. The patient denies hallucinations or delusions and he denies any suicidal or homicidal ideation. The patient is alert, oriented to time, place, person, and situation. Intact immediate, recent, and remote memories. Poor insight and judgment. ASSESSMENT: PRIMARY DIAGNOSIS: Major depression, severe, recurrent, without psychotic features. MEDICAL DIAGNOSES: Diabetes mellitus, urinary tract infection, status post spinal cord injury with . ESTIMATED LENGTH OF STAY: 5-7 days. THE PATIENT'S STRENGTH AND WEAKNESSES: The patient's general fund of knowledge is fair. Weaknesses are ineffective coping. AFTER DISCHARGE PLAN: Outpatient treatment and followup will continue as an outpatient. CRITERIA FOR DISCHARGE: The patient will have better impulse control and we will stabilize psychotropic medications. Also, the patient will return to the [facility]. JOB# [id number]
[2018-04-17] MEDS: INSULIN ASPART SLIDING SCALE 100 UNITS/ML UNIT SUBQ SCH ×4 (06:33→21:32)
[2018-04-17] MEDS: Ferrous Sulfate 325 MG TAB PO SCH ×2 (09:47→17:41)
[2018-04-17] MEDS: Multivitamin Tab PO SCH (09:47)
[2018-04-17] MEDS: Sulfamethoxazole/TMP 800/160mg Tab PO SCH ×2 (09:47→17:41)
--- NOTE | 2018-04-17 20:43 | Internal Medicine Prog Note ---
Internal Medicine Subjective - Subjective Service Date: 04/17/18 Patient seen and examined:: with staff Patient is:: awake, verbal, in bed, talking Per staff patient has:: no adverse event Internal Medicine Objective - Results Result Diagrams: 04/15/18 17:15 04/15/18 17:15 Recent Labs: Laboratory Last Values WBC 6.7 Th/cmm (4.8-10.8) 04/15/18 17:15 RBC 4.37 Mil/cmm (4.30-5.70) 04/15/18 17:15 Hgb 12.5 gm/dL (12-16) 04/15/18 17:15 Hct 38.0 % (41.0-60) L 04/15/18 17:15 MCV 86.9 fl (80-99) 04/15/18 17:15 MCH 28.6 pg (26.0-30.0) 04/15/18 17:15 MCHC Differential 32.9 pg (28.0-36.0) 04/15/18 17:15 RDW 12.9 % (11.5-20.0) 04/15/18 17:15 Plt Count 283 Th/cmm (150-400) 04/15/18 17:15 MPV 6.9 fl 04/15/18 17:15 Neutrophils % 53.6 % (40.0-80.0) 04/15/18 17:15 Lymphocytes % 28.4 % (20.0-50.0) 04/15/18 17:15 Monocytes % 9.6 % (2.0-10.0) 04/15/18 17:15 Eosinophils % 7.6 % (0.0-5.0) H 04/15/18 17:15 Basophils % 0.8 % (0.0-2.0) 04/15/18 17:15 PT 9.5 SECONDS (9.5-11.5) 04/15/18 17:15 INR 0.91 (0.5-1.4) 04/15/18 17:15 Sodium 136 mEq/L (136-145) 04/15/18 17:15 Potassium 3.8 mEq/L (3.5-5.1) 04/15/18 17:15 Chloride 102 mEq/L (98-107) 04/15/18 17:15 Carbon Dioxide 24.9 mEq/L (21.0-31.0) 04/15/18 17:15 Anion Gap 12.9 (7.0-16.0) 04/15/18 17:15 BUN 16 mg/dL (7-25) 04/15/18 17:15 Creatinine 0.7 mg/dL (0.7-1.3) 04/15/18 17:15 Est GFR ( Amer) > 60.0 ml/min (>90) 04/15/18 17:15 Est GFR (Non-Af Amer) > 60.0 ml/min 04/15/18 17:15 BUN/Creatinine Ratio 22.9 04/15/18 17:15 Glucose 160 mg/dL (70-105) H 04/15/18 17:15 POC Glucose 157 MG/DL (70 - 105) H 04/17/18 16:50 Calcium 9.5 mg/dL (8.6-10.3) 04/15/18 17:15 Total Bilirubin 0.3 mg/dL (0.3-1.0) 04/15/18 17:15 AST 8 U/L (13-39) L 04/15/18 17:15 ALT 6 U/L (7-52) L 04/15/18 17:15 Alkaline Phosphatase 86 U/L (34-104) 04/15/18 17:15 Total Protein 7.8 gm/dL (6.0-8.3) 04/15/18 17:15 Albumin 3.9 gm/dL (4.2-5.5) L 04/15/18 17:15 Globulin 3.9 gm/dL 04/15/18 17:15 Albumin/Globulin Ratio 1.0 (1.0-1.8) 04/15/18 17:15 Triglycerides 164 mg/dL (<150) H 04/15/18 17:15 Cholesterol 162 mg/dL (<200) 04/15/18 17:15 LDL Cholesterol Direct 109 mg/dL (75-193) 04/15/18 17:15 HDL Cholesterol 37 mg/dL (23-92) 04/15/18 17:15 TSH 2.72 uIU/ml (0.34-5.60) 04/15/18 17:15 Urine Source CLEAN C 04/15/18 01:31 Urine Color YELLOW 04/15/18 01:31 Urine Clarity HAZY (CLEAR) 04/15/18 01:31 Urine pH 6.0 (4.6 - 8.0) 04/15/18 01:31 Ur Specific [place] 1.010 (1.005-1.030) 04/15/18 01:31 Urine Protein NEGATIVE mg/dL (NEGATIVE) 04/15/18 01:31 Urine Glucose (UA) NEGATIVE mg/dL (NEGATIVE) 04/15/18 01:31 Urine Ketones 15 mg/dL (NEGATIVE) H 04/15/18 01:31 Urine Blood MODERATE (NEGATIVE) H 04/15/18 01:31 Urine Nitrate NEGATIVE (NEGATIVE) 04/15/18 01:31 Urine Bilirubin NEGATIVE (NEGATIVE) 04/15/18 01:31 Urine Urobilinogen 0.2 E.U./dL (0.2 - 1.0) 04/15/18 01:31 Ur Leukocyte Esterase LARGE (NEGATIVE) H 04/15/18 01:31 Urine RBC 2-5 /hpf (0-5) H 04/15/18 01:31 Urine WBC 25-50 /hpf (0-5) H 04/15/18 01:31 Ur Epithelial Cells NONE SEEN /lpf (FEW) 04/15/18 01:31 Urine Bacteria MANY /hpf (NONE SEEN) H 04/15/18 01:31 - Physical Exam Vitals and I&O: Vital Signs Temp 98.2 F 04/17/18 14:00 Pulse 74 04/17/18 14:00 Resp 18 04/17/18 14:00 BP 90/63 04/17/18 14:00 Pulse Ox 99 04/17/18 14:00 Intake & Output 04/17/18 04/17/18 04/18/18 06:59 18:59 06:59 Intake Total 480 1500 Balance 480 1500 Intake: Oral 480 1500 Other: # Voids 2 4 # Bowel Movements 0 Active Medications: Current Medications Acetaminophen (Tylenol) 650 mg PO Q6HR PRN PRN Reason: Pain (Moderate) LEVEL 4-6 Stop: 06/14/18 19:57 Aripiprazole (Abilify) 5 mg PO DAILY [facility]; Protocol Stop: 06/15/18 08:59 Last Admin: 04/17/18 09:48 Dose: 5 mg Docusate Sodium (Colace) 250 mg PO DAILY [facility] Stop: 06/15/18 08:59 Last Admin: 04/17/18 09:48 Dose: 250 mg Ferrous Sulfate (Iron) 325 mg PO BID [facility] Stop: 06/15/18 08:59 Last Admin: 04/17/18 17:41 Dose: 325 mg Insulin Aspart (Novolog Insulin Sliding Scale) 0 units SUBQ ACHS YIFAN; Protocol Stop: 06/14/18 20:59 Last Admin: 04/17/18 17:40 Dose: 3 units Lorazepam (Ativan) 0.5 mg PO Q4H PRN; Protocol PRN Reason: Anxiety Stop: 06/14/18 20:15 Magnesium Hydroxide (Milk Of Magnesia) 30 ml PO HS PRN PRN Reason: Constipation Stop: 06/14/18 19:57 Metformin HCl (Glucophage) 500 mg PO BID [facility] Stop: 06/15/18 08:59 Last Admin: 04/17/18 17:41 Dose: 500 mg Multivitamins/Vitamin C (Theragran) 1 tab PO DAILY [facility] Stop: 06/15/18 08:59 Last Admin: 04/17/18 09:47 Dose: 1 tab Trimethoprim/Sulfamethoxazole (Bactrim Ds) 1 tab PO BID [facility] Stop: 06/15/18 08:59 Last Admin: 04/17/18 17:41 Dose: 1 tab Zolpidem Tartrate (Ambien) 5 mg PO HS PRN PRN Reason: Insomnia General: alert HEENT: NC/AT, PERRLA, EOMI, anicteric sclerae, throat clear Neck: Supple, No JVD, No thyromegaly, +2 carotid pulse wo bruit, No LAD Lungs: CTAB Cardiovascular: RRR, Normal S1, Normal S2, without murmur Abdomen: soft, non-tender, non-distended Extremities: clear Neurological: no change Internal Medicine Assmt/Plan - Assessment Assessment: 1.UTI 2.DM. 3.QUADRIPARESIS. 4.PSYCHSIS. - Plan Plan: CONTINUE ON CURRENT MEDICATION AND DIET.
--- NOTE | 2018-04-17 21:51 | Progress Notes ---
DATE: 04/17/2018 SUBJECTIVE: Chart reviewed and the patient interviewed. Also discussed the patient's condition with the staff and reviewed records and labs. The patient seems to be calmer and easier to follow directions. The patient also has less anger. The patient also is cooperative with his treatment. He is alert and tries to interact more. Otherwise, the patient needs still redirections. Also, need to monitor his behavior. ASSESSMENT: The patient is still psychotic with episodes of agitation. TREATMENT PLAN: Continue to monitor his behavior and his condition closely. Also, continue to work on his psychosis and agitation and continue to follow up. JOB# [id number]
[2018-04-18] MEDS: INSULIN ASPART SLIDING SCALE 100 UNITS/ML UNIT SUBQ SCH ×4 (07:24→21:32)
[2018-04-18] MEDS: Sulfamethoxazole/TMP 800/160mg Tab PO SCH ×2 (09:02→17:18)
[2018-04-18] MEDS: Ferrous Sulfate 325 MG TAB PO SCH ×2 (09:02→17:19)
[2018-04-18] MEDS: Multivitamin Tab PO SCH (09:02)
--- NOTE | 2018-04-18 18:20 | Internal Medicine Prog Note ---
Internal Medicine Subjective - Subjective Service Date: 04/18/18 Patient seen and examined:: with staff Patient is:: awake, verbal, in bed, talking Per staff patient has:: no adverse event Internal Medicine Objective - Results Result Diagrams: 04/15/18 17:15 04/15/18 17:15 Recent Labs: Laboratory Last Values WBC 6.7 Th/cmm (4.8-10.8) 04/15/18 17:15 RBC 4.37 Mil/cmm (4.30-5.70) 04/15/18 17:15 Hgb 12.5 gm/dL (12-16) 04/15/18 17:15 Hct 38.0 % (41.0-60) L 04/15/18 17:15 MCV 86.9 fl (80-99) 04/15/18 17:15 MCH 28.6 pg (26.0-30.0) 04/15/18 17:15 MCHC Differential 32.9 pg (28.0-36.0) 04/15/18 17:15 RDW 12.9 % (11.5-20.0) 04/15/18 17:15 Plt Count 283 Th/cmm (150-400) 04/15/18 17:15 MPV 6.9 fl 04/15/18 17:15 Neutrophils % 53.6 % (40.0-80.0) 04/15/18 17:15 Lymphocytes % 28.4 % (20.0-50.0) 04/15/18 17:15 Monocytes % 9.6 % (2.0-10.0) 04/15/18 17:15 Eosinophils % 7.6 % (0.0-5.0) H 04/15/18 17:15 Basophils % 0.8 % (0.0-2.0) 04/15/18 17:15 PT 9.5 SECONDS (9.5-11.5) 04/15/18 17:15 INR 0.91 (0.5-1.4) 04/15/18 17:15 Sodium 136 mEq/L (136-145) 04/15/18 17:15 Potassium 3.8 mEq/L (3.5-5.1) 04/15/18 17:15 Chloride 102 mEq/L (98-107) 04/15/18 17:15 Carbon Dioxide 24.9 mEq/L (21.0-31.0) 04/15/18 17:15 Anion Gap 12.9 (7.0-16.0) 04/15/18 17:15 BUN 16 mg/dL (7-25) 04/15/18 17:15 Creatinine 0.7 mg/dL (0.7-1.3) 04/15/18 17:15 Est GFR ( Amer) > 60.0 ml/min (>90) 04/15/18 17:15 Est GFR (Non-Af Amer) > 60.0 ml/min 04/15/18 17:15 BUN/Creatinine Ratio 22.9 04/15/18 17:15 Glucose 160 mg/dL (70-105) H 04/15/18 17:15 POC Glucose 114 MG/DL (70 - 105) H 04/18/18 17:04 Calcium 9.5 mg/dL (8.6-10.3) 04/15/18 17:15 Total Bilirubin 0.3 mg/dL (0.3-1.0) 04/15/18 17:15 AST 8 U/L (13-39) L 04/15/18 17:15 ALT 6 U/L (7-52) L 04/15/18 17:15 Alkaline Phosphatase 86 U/L (34-104) 04/15/18 17:15 Total Protein 7.8 gm/dL (6.0-8.3) 04/15/18 17:15 Albumin 3.9 gm/dL (4.2-5.5) L 04/15/18 17:15 Globulin 3.9 gm/dL 04/15/18 17:15 Albumin/Globulin Ratio 1.0 (1.0-1.8) 04/15/18 17:15 Triglycerides 164 mg/dL (<150) H 04/15/18 17:15 Cholesterol 162 mg/dL (<200) 04/15/18 17:15 LDL Cholesterol Direct 109 mg/dL (75-193) 04/15/18 17:15 HDL Cholesterol 37 mg/dL (23-92) 04/15/18 17:15 TSH 2.72 uIU/ml (0.34-5.60) 04/15/18 17:15 Urine Source CLEAN C 04/15/18 01:31 Urine Color YELLOW 04/15/18 01:31 Urine Clarity HAZY (CLEAR) 04/15/18 01:31 Urine pH 6.0 (4.6 - 8.0) 04/15/18 01:31 Ur Specific [place] 1.010 (1.005-1.030) 04/15/18 01:31 Urine Protein NEGATIVE mg/dL (NEGATIVE) 04/15/18 01:31 Urine Glucose (UA) NEGATIVE mg/dL (NEGATIVE) 04/15/18 01:31 Urine Ketones 15 mg/dL (NEGATIVE) H 04/15/18 01:31 Urine Blood MODERATE (NEGATIVE) H 04/15/18 01:31 Urine Nitrate NEGATIVE (NEGATIVE) 04/15/18 01:31 Urine Bilirubin NEGATIVE (NEGATIVE) 04/15/18 01:31 Urine Urobilinogen 0.2 E.U./dL (0.2 - 1.0) 04/15/18 01:31 Ur Leukocyte Esterase LARGE (NEGATIVE) H 04/15/18 01:31 Urine RBC 2-5 /hpf (0-5) H 04/15/18 01:31 Urine WBC 25-50 /hpf (0-5) H 04/15/18 01:31 Ur Epithelial Cells NONE SEEN /lpf (FEW) 04/15/18 01:31 Urine Bacteria MANY /hpf (NONE SEEN) H 04/15/18 01:31 - Physical Exam Vitals and I&O: Vital Signs Temp 99.2 F 04/18/18 15:49 Pulse 63 04/18/18 07:30 Resp 20 04/18/18 15:49 BP 98/67 04/18/18 15:49 Pulse Ox 97 04/18/18 15:49 Intake & Output 04/17/18 04/18/18 04/18/18 18:59 06:59 18:59 Intake Total 1500 Balance 1500 Intake: Oral 1500 Other: # Voids 4 # Bowel Movements 0 Active Medications: Current Medications Acetaminophen (Tylenol) 650 mg PO Q6HR PRN PRN Reason: Pain (Moderate) LEVEL 4-6 Stop: 06/14/18 19:57 Last Admin: 04/18/18 04:54 Dose: 650 mg Aripiprazole (Abilify) 5 mg PO DAILY YIFAN; Protocol Stop: 06/15/18 08:59 Last Admin: 04/18/18 09:02 Dose: 5 mg Docusate Sodium (Colace) 250 mg PO DAILY [facility] Stop: 06/15/18 08:59 Last Admin: 04/18/18 09:02 Dose: 250 mg Ferrous Sulfate (Iron) 325 mg PO BID [facility] Stop: 06/15/18 08:59 Last Admin: 04/18/18 17:19 Dose: 325 mg Insulin Aspart (Novolog Insulin Sliding Scale) 0 units SUBQ ACHS [facility]; Protocol Stop: 06/14/18 20:59 Last Admin: 04/18/18 17:19 Dose: Not Given Lorazepam (Ativan) 0.5 mg PO Q4H PRN; Protocol PRN Reason: Anxiety Stop: 06/14/18 20:15 Magnesium Hydroxide (Milk Of Magnesia) 30 ml PO HS PRN PRN Reason: Constipation Stop: 06/14/18 19:57 Metformin HCl (Glucophage) 500 mg PO BID [facility] Stop: 06/15/18 08:59 Last Admin: 04/18/18 17:19 Dose: 500 mg Multivitamins/Vitamin C (Theragran) 1 tab PO DAILY [facility] Stop: 06/15/18 08:59 Last Admin: 04/18/18 09:02 Dose: 1 tab Trimethoprim/Sulfamethoxazole (Bactrim Ds) 1 tab PO BID [facility] Stop: 06/15/18 08:59 Last Admin: 04/18/18 17:18 Dose: 1 tab Zolpidem Tartrate (Ambien) 5 mg PO HS PRN PRN Reason: Insomnia General: alert HEENT: NC/AT, PERRLA, EOMI, anicteric sclerae, throat clear Neck: Supple, No JVD, No thyromegaly, +2 carotid pulse wo bruit, No LAD Lungs: CTAB Cardiovascular: RRR, Normal S1, Normal S2, without murmur Abdomen: soft, non-tender, non-distended Extremities: clear Neurological: no change Internal Medicine Assmt/Plan - Assessment Assessment: 1.UTI 2.DM. 3.QUADRIPARESIS. 4.PSYCHSIS. - Plan Plan: CONTINUE ON CURRENT MEDICATION AND DIET. Nutritional Asmnt/Malnutr-PDOC - Dietary Evaluation Malnutrition Findings (Please click <Entered> for more info): Nutritional Asmnt/Malnutrition Start: 04/18/18 13: 56 Text: Status: Complete Freq: Protocol: Document 04/18/18 13:56 [email or web address] (Rec: 04/18/18 14:05 [email or web address]) Nutritional Asmnt/Malnutrition Patient General Information Nutritional Screening Moderate Risk Diagnosis psychosis Pertinent Medical Hx/Surgical Hx DM, spincal cord injury w/ quadriparesis, depression, neurogenic bladder & bowel Subjective Information Pt was seen sitting in damoen chair in dining room. [employer] was feeding pt and ate 100%. PO intake is 100% per EMR. Current Diet Order/ Nutrition Support 1800 calorie diet Pertinent Medications colace, iron, novolog, glucophage, thergran, ambien Pertinent Labs 04/17 POC 157-158 04/16 POC 165-266 04/15 glucose 160, alb 3.9, triglycerides 164 Nutritional Hx/Data Height 1.6 m Height (Calculated Centimeters) 160.0 Current Weight (lbs) 56.699 kg Weight (Calculated Kilograms) 56.7 Weight (Calculated Grams) 95525.0 Body Mass Index (BMI) 22.1 Weight Status Approriate GI Symptoms GI Symptoms None Last BM not indicated Difficult in: None Food Allergies No Skin Integrity/Comment: area of concern, marvin 13 Current %PO Good (75-100%) Estimated Nutritional Goals BEE in Kcals: Using Current wt Calories/Kcals/Kg 25-30 Kcals Calculated 6152-3528 Protein: Using Current wt Protein g/k Protein Calculated 56 Fluid: ml 6281-6173 (1ml/kcal) Nutritional Problem 1. Problem Problem altered nutrition related labs Etiology hyperglycemia Signs/Symptoms: POC 157-266 Malnutrition Alert Is there a minimum of two criteria No selected? Query Text:Check all the applicable criteria. A minimum of two criteria are recommended for diagnosis of either severe or non-severe malnutrition. Malnutrition Related to Morbid Obesity Malnutrition related to morbid obesity No Intervention/Recommendation Comments 1. Continue with 1800 calorie diet as ordered. 2. MD to adjust insulin regimen for optimal glycemic control 3. Monitor PO intake, wt, labs and skin integrity 4. F/U as low risk in 7 days Expected Outcomes/Goals Expected Outcomes/Goals 1. PO intake to meet at least 75% of nutritional needs. 2. Wt stability, skin to remain intact, labs to approach WNL. Reviewed by Elisabet Sanderson RD
[2018-04-19] MEDS: INSULIN ASPART SLIDING SCALE 100 UNITS/ML UNIT SUBQ SCH ×2 (07:19→13:47)
[2018-04-19] MEDS: Ferrous Sulfate 325 MG TAB PO SCH (09:14)
[2018-04-19] MEDS: Multivitamin Tab PO SCH (09:14)
[2018-04-19] MEDS: Sulfamethoxazole/TMP 800/160mg Tab PO SCH (09:14)
[2018-04-19] MEDS ORDERED: Lactulose 10 Gm/15 mL 30mL UDC PO SCH ×2 (14:33→14:40)
--- NOTE | 2018-04-21 16:17 | Discharge Summary ---
DATE OF DISCHARGE: 04/19/2018 AGE: 52. SEX: Male. PHYSICIAN: Dr. Bergman. FINAL DIAGNOSES: PRIMARY DIAGNOSIS: Major depression, severe, recurrent, without psychotic features. MEDICAL DIAGNOSIS: Diabetes mellitus. Urinary tract infection. Status post spinal cord injury. REASON FOR HOSPITALIZATION: The patient was admitted to the hospital from [facility] because of increased confusion and slight agitation, but also severe depression. HOSPITAL COURSE: The patient continued to be anxious and in a depressed mood. The patient also was isolative and withdrawn. Also, was interacting minimally with others. The patient was able to express himself and his feelings. He also was interacting more appropriately. The patient also was given Abilify in a dose of 5 mg every day. The patient was not suicidal or homicidal, and he was easier to follow directions and the patient was discharged from the hospital. Physical exam of the patient was monitored closely by Dr. Olson and the patient had no major medical problems while in the hospital. AFTER DISCHARGE PLANS: The patient discharged from the hospital, returned to [facility] with plans to follow him up there. EXPECTED OUTCOME AFTER DISCHARGE: Fair if the patient continues with outpatient treatment followup. [facility]# [id number]
--- NOTE | 2018-04-21 21:57 | Progress Notes ---
DATE: 04/18/2018 Chart reviewed and the patient interviewed. Also, discussed the patient's condition with the staff and reviewed records and labs. The patient is still anxious and still has episodes of irritability and anger. The patient also is still slightly suspicious and paranoid, but he is cooperative and compliant with taking his medications. He also is interacting slightly more. The patient denies any intention to harm himself or others. He also is compliant with taking his medications with no side effects. ASSESSMENT: The patient is still having episodes of agitation and irritability. TREATMENT PLAN: Continue to monitor his behavior and condition closely. Also, continue to work on his ineffective coping and adjusting psychotropic medications. JOB# [id number]
== END 2018-04-19 17:00 | DRG 885 ==
LOC: ER 16:52 → GERO2 18:22
PROVIDERS: ADMIT Psychiatry & Neurology Psychiatry; ATTEND Psychiatry & Neurology Psychiatry
DX: F33.2 Major depressive disorder, recurrent severe without psychotic features (principal); R53.2 Functional quadriplegia; N39.0 Urinary tract infection, site not specified; E11.9 Type 2 diabetes mellitus without complications; F29 Unspecified psychosis not due to a substance or known physiological condition; F03.90 Unspecified dementia, unspecified severity, without behavioral disturbance, psychotic disturbance, mood disturbance, and anxiety; Z83.3 Family history of diabetes mellitus; Z88.0 Allergy status to penicillin; Z82.49 Family history of ischemic heart disease and other diseases of the circulatory system
CPT/HCPCS: 36415-UA; 71045-TC; 80053-TC; 80061-TC; 81001-TC; 82948-90; 83036-90; 84443-TC; 85025-TC; 85610-TC; 87086-90; 93005; G0410; J1815; Z7610